=== PATIENT | female | born 1950 | race Caucasian/White ===

== ENCOUNTER 2019-12-07 11:40 | Outpatient (CLI) | payer MEDICARE, SELFPAY ==
[2019-12-08 16:00] LABS: Immunoglobulin E 45 kU/L (<OR=114)
== END 2019-12-07 11:41 | disposition home or self-care (01) ==
LOC: LAB 11:44
PROVIDERS: Family Provider Family Medicine; PCP Family Medicine; Visit Provider Internal Medicine Critical Care Medicine
DX: J45.909 Unspecified asthma, uncomplicated (principal)
CPT/HCPCS: 82785

== ENCOUNTER 2019-12-17 06:55 | Outpatient (CLI) | payer MEDICARE, SELFPAY ==
--- NOTE | 2019-12-17 07:15 | USCV_ITS ---
Geronimo Perlita Age: 69 Gender: F : 1950 Exam Date: 12/17/2019 07:15 Ordering Phys: Telma Gill MD Technologist: Colleen Aguilar [place] [facility] [place]: shortness of breath BP: / HR: 62 Rhythm: Sinus Technical Quality: Adequate MEASUREMENTS (Male / Female) Normal Values 2D ECHO LV Diastolic Diameter PLAX 5.0 cm 4.2 - 5.9 / 3.9 - 5.3 cm LV Systolic Diameter PLAX 3.8 cm IVS Diastolic Thickness 1.4 cm 0.6 - 1.0 / 0.6 - 0.9 cm IVS Systolic Thickness 1.4 cm LVPW Diastolic Thickness 1.0 cm 0.6 - 1.0 / 0.6 - 0.9 cm LVPW Systolic Thickness 1.8 cm LV Ejection Fraction 2D Teich 46.1 % LV Ejection Fraction MOD 2C 71.3 % LV Ejection Fraction 2C AL 72.9 % LA Diameter 4.9 cm LA Width 3.2 cm LA Height 5.3 cm RA Width 3.8 cm RA Height 4.9 cm M-MODE LV Diastolic Diameter MM 5.8 cm 4.2 - 5.9 / 3.9 - 5.3 cm LV Systolic Diameter MM 3.0 cm LV Ejection Fraction MM Teich 79.1 % IVS Diastolic Thickness MM 0.9 cm 0.6 - 1.0 / 0.6 - 0.9 cm IVS Systolic Thickness MM 1.9 cm LVPW Diastolic Thickness MM 1.0 cm 0.6 - 1.0 / 0.6 - 0.9 cm LVPW Systolic Thickness MM 1.9 cm Aortic Annulus Diameter 2.7 cm LA Ao Ratio MM 1.8 MV E Point Septal Separation 0.5 cm DOPPLER AV Peak Velocity 125.0 cm/s LVOT Peak Velocity 99.0 cm/s MV Peak Velocity 106.0 cm/s MV Area PHT 3.7 cm squared Mitral E to A Ratio 1.1 MV E' Velocity 8.0 cm/s Mitral E to MV E' Ratio 10.5 Mitral E to LV E' Lateral Ratio 11.5 Mitral E to LV E' Septal Ratio 9.7 TR Peak Velocity 167.0 cm/s TR Peak Gradient 11.2 mmHg Right Atrial Pressure 3.0 mmHg Pulmonary Artery Systolic Pressu 14.2 mmHg PV Peak Velocity 84.0 cm/s RV Acceleration Time 0.1 s FINDINGS Left Ventricle Normal left ventricular cavity size. Normal left ventricular systolic function. No regional wall motion abnormalities. Left ventricular ejection fraction is estimated at 60 %. Grade I/IV diastolic dysfunction (abnormal relaxation filling pattern), normal to mildly elevated filling pressures. Right Ventricle The right ventricle is normal in size and function. Right Atrium The right atrium is normal in size. Left Atrium The left atrium is normal in size. Mitral Valve Structurally normal mitral valve without significant stenosis or prolapse. There is no mitral regurgitation. Aortic Valve Structurally normal aortic valve without significant sclerosis or stenosis. There is no aortic regurgitation. Tricuspid Valve Structurally normal tricuspid valve without significant stenosis or regurgitation. Pulmonary artery systolic pressure is normal. Pulmonic Valve Structurally normal pulmonic valve without significant stenosis. There is no pulmonic regurgitation. Pericardium Normal pericardium without effusion. Aorta Normal ascending aorta dimension. CONCLUSIONS 1-Normal left ventricular cavity size. Normal left ventricular systolic function. No regional wall motion abnormalities. Left ventricular ejection fraction is estimated at 60 %. Grade I/IV diastolic dysfunction (abnormal relaxation filling pattern), normal to mildly elevated filling pressures. 2-There is no pericardial effusion. 3-No significant valve abnormalities. 4-Pulmonary artery systolic pressure is within normal limits. 6-No significant change since the prior echocardiogram study of 01/15/2017 Tere Woods MD (Electronically Signed) Final Date: 17 December 2019 17:11 S
== END 2019-12-17 06:56 | disposition home or self-care (01) ==
LOC: US 06:56
PROVIDERS: Family Provider Family Medicine; PCP Family Medicine; Visit Provider Internal Medicine Critical Care Medicine
DX: J45.909 Unspecified asthma, uncomplicated (principal); R06.02 Shortness of breath
CPT/HCPCS: 93306

== ENCOUNTER → 2019-12-23 08:31 | Outpatient (BNVA) | payer MEDICARE, SELFPAY | PROVIDERS: Family Provider Family Medicine; PCP Family Medicine; Referring Provider Licensed Practical Nurse; Visit Provider Specialist | DX: M79.601 Pain in right arm (principal); Z87.891 Personal history of nicotine dependence | CPT/HCPCS: 95908 ==

== ENCOUNTER 2019-12-24 13:43 | Outpatient (CLI) | payer MEDICARE, SELFPAY ==
--- NOTE | 2019-12-24 14:04 | PFTS_ITS ---
Date of Study:12/24/2019 Date of Dictation: MECHANICS: Forced vital capacity (FVC) is reduced. Forced expiratory volume in one second (FEV1) is reduced. FEV1/FVC is normal. FLOW VOLUME LOOP: Significant interruption during the forced expiratory maneuver.. LUNG VOLUMES: Plethysmograph was not performed due to claustrophobia DIFFUSING CAPACITY FOR CARBON MONOXIDE: Mild reduced. INTERPRETATION: The pulmonary function tests are consistent with mild restriction. Lung volumes could not be measured because of claustrophobia. Gas exchange (DLCO) is mildly reduced. MTDD
== END 2019-12-24 13:44 | disposition home or self-care (01) ==
LOC: RT 13:47
PROVIDERS: Family Provider Family Medicine; PCP Family Medicine; Visit Provider Internal Medicine Critical Care Medicine
DX: J45.909 Unspecified asthma, uncomplicated (principal); F17.210 Nicotine dependence, cigarettes, uncomplicated
CPT/HCPCS: 94060; 94729; J7611

== ENCOUNTER 2019-12-27 09:36 | Outpatient (CLI) | payer MEDICARE, SELFPAY ==
--- NOTE | 2019-12-27 09:42 | CT_ITS ---
WS: [id number] LDCT LUNG CANCER SCREENING TECHNIQUE: Noncontrast CT of the chest with coronal and sagittal reformatted images. CLINICAL INFORMATION: HX OF TOBACCO USE COMPARISON: CT chest 01/15 2017 DLP: 73.86 mGy.cm DIvol: 2.[address] scans at [facility] use at least one of these dose optimization techniques: automat ed exposure control; mA and/or kV adjustment per patient size (includes targeted exams where dose is matched to clinical indication); or iterative reconstruction. FINDINGS: No suspicious noncalcified pulmonary nodules. A few calcified granulomas. Chronic emphysematous harrison es. Calcified hilar nodes. Small esophageal hiatal hernia. OTHER FINDINGS (S MODIFIER): None. CT/CT lung screening G0297 IMPRESSION: LUNG-RADS: 1-Negative FOLLOW UP: 12 Month: Continue annual screening with LDCT
== END 2019-12-27 09:37 | disposition home or self-care (01) ==
LOC: RAD 09:38
PROVIDERS: Family Provider Family Medicine; PCP Family Medicine; Visit Provider Internal Medicine Critical Care Medicine
DX: Z12.2 Encounter for screening for malignant neoplasm of respiratory organs (principal); Z87.891 Personal history of nicotine dependence
CPT/HCPCS: G0297

== ENCOUNTER 2019-12-28 08:32 | Day surgery (SDC) | payer MEDICARE, SELFPAY ==
[2019-12-20 07:48] VITALS: BMI 45.5
[2019-12-28 08:58] VITALS: BP 121/68; PULSE 57; RESP 16; TEMP 36.7; O2SAT 94
[2019-12-28] MEDS: sodium chloride 0.9% 1,000 ML 30 ML (09:03)
[2019-12-28 09:18] LABS: Glucose Point of Care 119 mg/dL (70-110)
--- NOTE | 2019-12-28 09:26 | P.HP_ITS ---
Same Day Surgery H&P Indication for Procedure/HPI DATE OF PROCEDURE: December 30, 2019 CHIEF COMPLAINT/INDICATIONFOR SURGICAL PROCEDURE: screening PREOP DIAGNOSIS: Screening PLANNED PROCEDRUE: Operation Date: 12/28/19 10:30 Proposed Procedures p Colonoscopy 10921 K62.5(Not Applicable) - Willis Brito MD Medications/Allergies* Home Medications Medication Instructions Recorded Confirmed Type albuterol sulfate 90 mcg/actuation 2 puff INHALATION Q6H PRN 11/26/19 12/20/19 History aerosol inhaler alendronate 70 mg tablet 70 mg PO Q7D tab 11/26/19 12/20/19 History amlodipine 10 mg tablet 10 mg PO DAILY 11/26/19 12/20/19 History budesonide-formoterol HFA 160 2 puff INHALATION BID 11/26/19 12/20/19 History mcg-4.5 mcg/actuation aerosol inhaler empagliflozin 10 mg tablet 10 mg PO DAILY 11/26/19 12/20/19 History ergocalciferol (vitamin D2) 1,000 1,000 unit PO DAILY 11/26/19 12/20/19 History unit capsule eszopiclone 2 mg tablet 2 mg PO DAILY tab 11/26/19 12/20/19 History fluoxetine 40 mg capsule 40 mg PO DAILY 11/26/19 12/20/19 History levothyroxine 100 mcg capsule 100 mcg PO DAILY 11/26/19 12/20/19 History losartan 50 mg tablet 50 mg PO DAILY 11/26/19 12/20/19 History metoprolol succinate 25 mg 25 mg PO DAILY 11/26/19 12/20/19 History tablet,extended release 24 hr pantoprazole 40 mg tablet,delayed 40 mg PO DAILY 11/26/19 12/20/19 History release potassium chloride 10 mEq 10 meq PO BID 11/26/19 12/20/19 History tablet,extended release(part/cryst) pregabalin 75 mg capsule 75 mg PO TID 11/26/19 12/20/19 History repaglinide 2 mg tablet 2 mg PO TID 11/26/19 12/20/19 History rosuvastatin 20 mg tablet 20 mg PO DAILY 11/26/19 12/20/19 History ipratropium 0.5 mg-albuterol 3 mg 3 ml INHALATION Q6H PRN 12/06/19 12/20/19 History (2.5 mg base)/3 mL nebulization soln hydrochlorothiazide 25 mg PO DAILY 12/20/19 12/20/19 History tiotropium bromide [Spiriva 2 puff INHALATION BID 12/20/19 12/20/19 History Respimat] aspirin [Aspir-81] 81 mg PO DAILY 12/28/19 12/28/19 History Allergies/Adverse Reactions Allergy/AdvReac Type Severity Reaction Status Date / Time codeine Allergy Severe ALGY-Anaphy Verified 12/23/19 08:49 laxis lisinopril AdvReac Severe ADR-Cough Verified 12/23/19 08:49 Pertinent History/Comorbid Conditions* Medical History (Updated 12/28/19 @ 10:36 by Willis Brito MD) Anxiety and depression Chronic low back pain COPD (chronic obstructive pulmonary disease) CVA (cerebral vascular accident) Diabetes Fibromyalgia GERD (gastroesophageal reflux disease) History of colon polyps Hyperlipidemia Hypertension Hypothyroidism Migraines Sleep apnea Surgical History (Updated 12/28/19 @ 11:26 by Willis Brito MD) H/O colonoscopy (~12/28/19) Cecal polyp, descending colon polyps, sigmoid diverticulosis, internal hemorrhoids H/O esophagogastroduodenoscopy few yrs ago H/O exploratory laparotomy H/O: hysterectomy History of appendectomy History of back surgery x 4 History of carpal tunnel repair right History of decompression of ulnar nerve right Hx of cholecystectomy Family History (Updated 11/26/19 @ 16:45 by Magui Rodriguez LPN) Diabetes Mother Lung disease Cancer Mother brain Hypertension Denies family history of Anesthesia complication Bleeding disorder Social History Smoking and tobacco status: former smoker Second hand smoke exposure: No Smoking risk assessment/counseling performed?: No Alcohol intake: never Adopted: No Lives independently: Yes Household members: children Housing: House Marital status: / Current occupational status: disabled Pets and animals: No History of recent travel: No Yara/L[employer]-Day: [employer] Special yara needs: No Agree to transfusion: Yes Pertinent Exam Findings alert, oriented x 3 and regular rate & rhythm Recommendations Surgery/Procedure today Coding Level of Care Code Acute Refrigerated Cargo Clerk for Felicity Ruvalcaba
--- NOTE | 2019-12-28 10:56 | P.ANESASSM_ITS ---
Pre-Anesthetic Assessment Pre-Anesthetic Assessment: Height/Weight: Height 1.57 m Weight 112.945 kg Temp Pulse Resp BP Pulse Ox 98.1 F 57 L 16 121/68 94 12/28/19 08:58 12/28/19 08:58 12/28/19 08:58 12/28/19 08:58 12/28/19 08:58 Preop Diagnosis: Screening Proposed Procedure: Operation Date: 12/28/19 10:30 Proposed Procedures p Colonoscopy 35054 K62.5(Not Applicable) - Willis Brito MD Social: Social History: Tobacco (quit) and No alcohol Exam: Pre-Anes Outpt Exam: alert, oriented x 3, clear to auscultation bilaterally and regular rate & rhythm Airway: Submandibular: WNL Cervical ROM: WNL MP: 2 History/ROS: No significant history except as noted Pulmonary: Pulmonary: Asthma, COPD, COOK and Sleep apnea CV/HEM: CV/HEM: HTN : : None reported Hepatic: Hepatic: None reported GI: GI: GERD Metabolic: Metabolic: Hyperlipidemia, Morbid obesity and Thyroid Musc/skel: Musc/skel: Fibromyalgia, Lower Back Pain and OA/DJD Neuropsych: Neuropsych: Anxiety, CVA, Depression and RODRIGUEZ Anesthetic Plan: ASA status: 3 Anesthesia: Anesthesia Evaluation and MAC Risk of > 500 ml blood loss (7ml/kg in children): No PFSH Anesthesia PFSH: Medical History Anxiety and depression Chronic low back pain COPD (chronic obstructive pulmonary disease) CVA (cerebral vascular accident) Diabetes Fibromyalgia GERD (gastroesophageal reflux disease) History of colon polyps Hyperlipidemia Hypertension Hypothyroidism Migraines Sleep apnea Surgical History H/O colonoscopy (~2014) 2019 H/O esophagogastroduodenoscopy few yrs ago H/O exploratory laparotomy H/O: hysterectomy History of appendectomy History of back surgery x 4 History of carpal tunnel repair right History of decompression of ulnar nerve right Hx of cholecystectomy Family History Mother Cancer brain Diabetes Other Hypertension Lung disease Denies family history of Anesthesia complication Bleeding disorder Social History Smoking and tobacco status: former smoker Second hand smoke exposure: No Smoking risk assessment/counseling performed?: No Alcohol intake: never Adopted: No Lives independently: Yes Household members: children Housing: House Marital status: / Current occupational status: disabled Pets and animals: No History of recent travel: No Yara/Sabianism: Zoroastrian Special yara needs: No Agree to transfusion: Yes Data Anesthesia Other Labs: Laboratory Results - last 48 hr 12/28/19 09:03 POC Glucose 119 Cardiac Studies: No Data to Display
[2019-12-28 11:23] VITALS: BP 98/67; PULSE 59; RESP 16; TEMP 36.2; O2SAT 96
--- NOTE | 2019-12-28 11:28 | ANE.PACU2 ---
 Inpatient post-anesthesia follow up: Airway intact: Yes Vital signs: Temperature 98.1 F Pulse Rate 57 Respiratory Rate 16 Blood Pressure 121/68 Pulse Oximetry 94 Oxygen Delivery Me thod Room Air Oxygen Flow Rate Fraction of Inspir ed Oxygen Hydration adequate: Yes Nausea and vomiting: No Pain level: 1 Mental status: Baseline
[2019-12-28 11:36] VITALS: BP 106/65; PULSE 52; RESP 18; O2SAT 99
== END 2019-12-28 11:45 | disposition home or self-care (01) ==
PROVIDERS: Family Provider Family Medicine; PCP Family Medicine; Visit Provider Surgery
PROC: 0DJD8ZZ Inspection of Lower Intestinal Tract, Via Natural or Artificial Opening Endoscopic (ICD-10-PCS; CPT 45378; principal; 2019-12-28 10:30)
DX: Z12.11 Encounter for screening for malignant neoplasm of colon (principal); Z86.73 Personal history of transient ischemic attack (TIA), and cerebral infarction without residual deficits; E11.9 Type 2 diabetes mellitus without complications; M79.7 Fibromyalgia; K21.9 Gastro-esophageal reflux disease without esophagitis; E78.5 Hyperlipidemia, unspecified; I10 Essential (primary) hypertension; E03.9 Hypothyroidism, unspecified; G47.30 Sleep apnea, unspecified; Z82.49 Family history of ischemic heart disease and other diseases of the circulatory system; Z83.3 Family history of diabetes mellitus; Z87.891 Personal history of nicotine dependence; K57.30 Diverticulosis of large intestine without perforation or abscess without bleeding; K64.8 Other hemorrhoids; D12.4 Benign neoplasm of descending colon; D12.0 Benign neoplasm of cecum; J44.9 Chronic obstructive pulmonary disease, unspecified; M19.90 Unspecified osteoarthritis, unspecified site; F41.9 Anxiety disorder, unspecified; F32.9 Major depressive disorder, single episode, unspecified
CPT/HCPCS: 12345; 36416; 45380; 82962; 88305; J2704; J7030

== ENCOUNTER 2020-02-07 11:53 | Outpatient (RCR) | payer MEDICARE, SELFPAY | END 2020-02-10 23:59 | disposition home or self-care (01) | LOC: SOT 11:53 | PROVIDERS: Family Provider Family Medicine; PCP Family Medicine; Referring Provider Specialist; Visit Provider Specialist | DX: G56.21 Lesion of ulnar nerve, right upper limb (principal); Z98.890 Other specified postprocedural states | CPT/HCPCS: 97035; 97110; 97140; 97166 ==

== ENCOUNTER 2020-02-11 06:00 | Outpatient (RCR) | payer MEDICARE, SELFPAY | END 2020-03-12 23:59 | disposition home or self-care (01) | LOC: SOT 06:00 | PROVIDERS: Family Provider Family Medicine; PCP Family Medicine; Referring Provider Specialist; Visit Provider Specialist | DX: G56.21 Lesion of ulnar nerve, right upper limb (principal); Z98.890 Other specified postprocedural states | CPT/HCPCS: 97035; 97110; 97140; G0283 ==

== ENCOUNTER 2020-02-23 12:09 | Outpatient (CLI) | payer MEDICARE, SELFPAY ==
[2020-02-23 12:52] LABS: Basophils # 0.1 10^3/uL (0.0-0.1); Basophils % 0.7 %; Eosinophils # 0.2 10^3/uL (0.0-0.8); Eosinophils % 2.5 %; Hematocrit 49.2 % (37.0-47.0); Hemoglobin 15.1 g/dL (11.5-15.3); Lymphocytes % 33.9 %; Mean Corpuscular HGB Conc 30.7 g/dL (30.0-36.0); Mean Platelet Volume 13.5 fL (7.4-10.4); Monocytes # 0.7 10^3/uL (0.2-0.9); Monocytes % 8.3 %; Neutrophils # 4.8 10^3/uL (1.8-7.7); Neutrophils % 54.4 %; Nucleated Red Blood Cells % 0 %; Platelet Count 225 10^3/cmm (130-400); Red Blood Count 5.59 10^6/uL (4.1-5.3); Red Cell Distribution Width 16.4 % (12.1-15.1); White Blood Count 8.8 10^3/uL (4.0-10.0)
== END 2020-02-23 12:10 | disposition home or self-care (01) ==
PROVIDERS: PCP Family Medicine; Visit Provider Internal Medicine Critical Care Medicine
DX: J45.909 Unspecified asthma, uncomplicated (principal)
CPT/HCPCS: 85025

== ENCOUNTER 2020-03-17 13:19 | Outpatient (CLI) | payer MEDICARE, SELFPAY ==
--- NOTE | 2020-03-17 13:31 | MR_ITS ---
WS: [id number] MRI CERVICAL SPINE HISTORY: M79.601 Pain in right arm COMPARISON: 12/10/2017 Straightening of the normal lordosis. Visualized brainstem and cerebellum are negative. Degenerative disc disease is most significant at C3-4, C4-5, C5-6 and C6-7. No marrow edema or fracture. Signal within the cervical cord is normal. Visualized posterior fossa is unremarkable. Craniocervical junction, C1 and C2 relationship, odontoid process and soft tissues are normal. C2-C3: Normal. C3-C4: Small bilateral foraminal osteophytes, slightly greater on the LEFT. Mild LEFT foraminal steno sis. No change since the prior study. C4-C5: Diffuse osteophytic ridging and diffuse disc bulging. Mild encroachment upon the ventral theca l sac with effacement of ventral CSF. Mild to moderate bilateral stenosis with mild central stenosis. C5-C6: Diffuse osteophytic ridging and disc bulging. Mild central and bilateral foraminal stenosis. N o change. C6-C7: Mild annular disc bulging with a soft tiny central protrusion. No significant stenosis. C7-T1: Very shallow central disc protrusion. No stenosis. Paraspinal soft tissue are normal. MR/MR cervical spin wo con* [id number] IMPRESSION: 1. Similar changes within the cervical spine as compared to 12/10/2017. 2. Mild central stenosis with mild to moderate bilateral foraminal stenosis at C4-5. Disc osteophyte effacement of the ventral CSF. 3. Mild central and bilateral foraminal stenosis at C5-6 and mild LEFT foramin al stenosis at C3-4.
--- NOTE | 2020-03-17 14:45 | XR_ITS ---
WS: [id number] XR cervical spine fl/ex [id number] REASON FOR EXAM: right arm pain FINDINGS: C4-C5, C5-C6 shows settling of the discs with degenerate changes anterior spurring is seen C4. There are flexion-extension views show motion The lower cervical spine is not completely evaluated on this study. XR/XR cervical spine fl/ex [id number] IMPRESSION: Degenerated disc changes C4-5, C5-6 The lower cervical spine C6 and C7-T1 are incompletely seen There appears to be adequate motion in the cervical spine.
== END 2020-03-17 13:20 | disposition home or self-care (01) ==
LOC: RADWPI 13:20
PROVIDERS: Family Provider Family Medicine; PCP Family Medicine; Visit Provider Specialist
DX: M79.601 Pain in right arm (principal); M48.02 Spinal stenosis, cervical region; M25.78 Osteophyte, vertebrae
CPT/HCPCS: 72040; 72141

== ENCOUNTER 2020-04-24 07:14 | Outpatient (CLI) | payer MEDICARE, SELFPAY ==
[2020-04-24 07:25] VITALS: BMI 47.9
--- NOTE | 2020-04-24 08:06 | ECG_ITS ---
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 Interpretive Statements NAME OF STUDY: LEXISCAN SESTAMIBI STRESS TEST INDICATION: Exertional Shortness of Breath NOTE: Please note that this is the electrocardiogram portion of the Lexiscan/Sestamibi stress test. The perfusion scan will be documented separately. DATA: Baseline heart rate was 48 beats per minute. Baseline blood pressure was 112/68 millimeters of mercury. Target heart rate was 151. Maximum heart rate achieved was 78. which was 51 % of the predicted target heart rate. Maximum blood pressure was 125/68 millimeters of mercury. The reason for ending the test was completion of the protocol. The patient did not experience any symptoms. ELECTROCARDIOGRAM: BASELINE: Sinus bradycardia. Normal axis. Old anterior wall myocardial infarction, otherwise, no ST-T changes suggestive of ischemia noted. No arrhythmia noted. EXERCISE: After Lexiscan injection, no ST-T changes suggestive of ischemic noted. No arrhythmia noted. CONCLUSION: Please note due to baseline abnormality of the EKG specificity and sensitivity of the EKG portion of LexiScan MIBI stress test will be low 1. EKG not suggestive of ischemia 2. Lexiscan injection unremarkable. 3. Perfusion scan will be documented separately. Electronically Signed On 04-26-2020 20:10:45 CDT by Tere Woods M.D. [email or web address]
--- NOTE | 2020-04-24 08:07 | NMCV_ITS ---
NM marian perf SPECT r/s* [id number] Perlita Melton Age: 70 Gender: F : 1950 Exam Date: 04/24/2020 08:30 Ordering Phys: Telma Gill MD Technologist: MAKAYLA Isaac Exam Location: [facility] Indications: SHORTNESS OF BREATH STRESS TEST Please see separate stress test report in [facility] for full findings IMAGE PROTOCOL Rest/Stress 1 Lexiscan Day Radiopharmaceutical Dose (mCi) Administration Site Administered by Rest: Tc-99m 10.8 IV MAKAYLA Eli Sestamibi Stress:Tc-99m 32.8 IV MAKAYLA Eli Sestamibi Rest: 24-Apr-2020 60 Discovery 630 Stress: 24-Apr-2020 30 Discovery 630 0.4mg Lexiscan. Images obtained in supine and prone position. SPECT RESULTS Technical Quality: Good Raw Data Analysis: Breast attenuation Image Corrections: No attenuation or motion correction applied Summed Stress Score: 1 Summed Rest Score: 1 Summed Difference Score: 0 PERFUSION FINDINGS Very small size perfusion abnormality of mild severity of apical lateral wall on rest and stress images. This likely represents attenuation artifact. FUNCTIONAL RESULTS (calculated via Gated SPECT) Stress Image LV EF (%): 74 Stress EDV (mL):93 TID: 1.11 Stress ESV (mL):24 FUNCTIONAL FINDINGS: The left ventricle is normal in size. Transient Ischemia Dilatation of 1.1. There is normal left ventricular systolic function. The left ventricular ejection fraction is normal with a value of 74%. There is normal left ventricular wall thickening. Normal end-diastolic and end-systolic volumes. IMPRESSIONS 1. Myocardial perfusion imaging is normal. Attenuation artifact noted in apical lateral wall. 2. Overall left ventricular systolic function is normal without regional wall motion abnormalities. 3. The left ventricular ejection fraction is normal with a value of 74%. 4. Scan indicates low risk for cardiac events. 5. No prior similar studies to compare. Amanda Velez MD (Electronically Signed) Final Date: 24 April 2020 16:54 S
--- NOTE | 2020-04-24 09:11 | SUR.PREOP ---
Patient reports no pain or discomfort prior to the start of the procedure.
[2020-04-24] MEDS: regadenoson 0.4 Mg/5 ml Syringe IVP (09:20)
[2020-04-24 09:36] VITALS: BP 116/75; PULSE 72
== END 2020-04-24 07:15 | disposition home or self-care (01) ==
LOC: RAD 07:16 → CDL 07:23
PROVIDERS: PCP Family Medicine; Visit Provider Internal Medicine Critical Care Medicine
DX: R06.02 Shortness of breath (principal)
CPT/HCPCS: 78452; 93017; A9500; J2785

== ENCOUNTER → 2020-06-07 09:56 | Outpatient (BNVA) | payer MEDICARE, SELFPAY | PROVIDERS: PCP Family Medicine; Referring Provider Nurse Practitioner Family; Visit Provider Anesthesiology Pain Medicine | DX: G89.29 Other chronic pain (principal); M79.601 Pain in right arm; M54.5 Low back pain | CPT/HCPCS: 99204 ==

== ENCOUNTER → 2020-06-21 11:15 | Outpatient (BNVA) | payer MEDICARE, SELFPAY | PROVIDERS: PCP Nurse Practitioner Family; Visit Provider Anesthesiology Pain Medicine | DX: G89.29 Other chronic pain (principal); M54.5 Low back pain; M50.020 Cervical disc disorder with myelopathy, mid-cervical region, unspecified level; G56.21 Lesion of ulnar nerve, right upper limb; M79.601 Pain in right arm; Z79.891 Long term (current) use of opiate analgesic | CPT/HCPCS: 99214 ==

== ENCOUNTER → 2020-07-19 09:44 | Outpatient (BNVA) | payer MEDICARE, SELFPAY | PROVIDERS: PCP Nurse Practitioner Family; Visit Provider Anesthesiology Pain Medicine | DX: G89.29 Other chronic pain (principal); M54.5 Low back pain; M50.020 Cervical disc disorder with myelopathy, mid-cervical region, unspecified level; M79.601 Pain in right arm; G56.21 Lesion of ulnar nerve, right upper limb; Z79.891 Long term (current) use of opiate analgesic | CPT/HCPCS: 99213; 99214 ==

== ENCOUNTER → 2020-08-16 10:36 | Outpatient (BNVA) | payer MEDICARE, SELFPAY | PROVIDERS: PCP Nurse Practitioner Family; Visit Provider Anesthesiology Pain Medicine | DX: G89.29 Other chronic pain (principal); M54.41 Lumbago with sciatica, right side; M79.601 Pain in right arm; M50.020 Cervical disc disorder with myelopathy, mid-cervical region, unspecified level; G56.21 Lesion of ulnar nerve, right upper limb; Z79.891 Long term (current) use of opiate analgesic | CPT/HCPCS: 99214 ==

== ENCOUNTER → 2020-08-22 12:48 | Outpatient (BNVA) | payer MEDICARE, SELFPAY | PROVIDERS: PCP Nurse Practitioner Family; Visit Provider Anesthesiology Pain Medicine | DX: M54.2 Cervicalgia (principal); Z79.891 Long term (current) use of opiate analgesic | CPT/HCPCS: 62321; J1100 ==

== ENCOUNTER → 2020-08-29 12:20 | Outpatient (BNVA) | payer MEDICARE, SELFPAY | PROVIDERS: PCP Nurse Practitioner Family; Visit Provider Nurse Practitioner Family | DX: M25.531 Pain in right wrist (principal) | CPT/HCPCS: 73110 ==

== ENCOUNTER → 2020-08-30 17:04 | Outpatient (BNVA) | payer MEDICARE, SELFPAY | PROVIDERS: PCP Nurse Practitioner Family; Visit Provider Specialist | DX: Z11.59 Encounter for screening for other viral diseases (principal); S52.501A Unspecified fracture of the lower end of right radius, initial encounter for closed fracture; X58.XXXA Exposure to other specified factors, initial encounter | CPT/HCPCS: 87635 ==

== ENCOUNTER 2020-09-01 06:59 | Day surgery (SDC) | payer MEDICARE, SELFPAY ==
[2020-08-31 12:53] VITALS: BMI 40.2
--- NOTE | 2020-09-01 | SCC_ITS ---
Procedure Done: Open reduction internal fixation right distal radius displaced fracture utilizing the Edy extra short narrow distal radius plate 90.6 seconds of fluoroscopic guidance, for a cumulative dose of 2.8 mGy, was provided to Dr. Pendleton by the radiology department. C-arm images of the RIGHT wrist were saved for the patient's permanent record. KALEIDA HEALTHGeorgi
--- NOTE | 2020-09-01 | XR_ITS ---
WS: [id number] Exam: XR wrist RT 2V [id number] Date/Time of Exam: 09/01/2020 9:53 AM Reason For Exam: ORIF wrist Comparison 08/29/2020. There is volar plate and screw fixation involving a fracture of the distal radius. Fracture alignment is anatomic for healing. Articular relationships are been restored. XR/XR wrist RT 2V [id number] IMPRESSION: 1. Internal orthopedic fixation involving the comminuted fracture of the distal radius now stabilized in anatomic alignment for healing.
[2020-09-01 07:21] VITALS: BP 127/86; PULSE 58; RESP 20; TEMP 37; O2SAT 95
[2020-09-01 07:24] LABS: Add Urine Microscopic? NO
[2020-09-01] MEDS: sodium chloride 0.9% 1,000 ML 30 ML IV (07:44)
[2020-09-01] MEDS: CELEcoxib 200 mg Capsule 400 MG PO (07:45)
[2020-09-01 07:59] LABS: Glucose Point of Care 111 mg/dL (70-110)
[2020-09-01] MEDS: midazolam 1 mg/mL INJ 5 ML 5 MG IVP (08:01)
[2020-09-01 08:06] LABS: Basophils # 0.1 10^3/uL (0.0-0.1); Basophils % 0.6 %; Eosinophils # 0.3 10^3/uL (0.0-0.8); Eosinophils % 2.8 %; Hematocrit 48.4 % (37.0-47.0); Hemoglobin 14.8 g/dL (11.5-15.3); Lymphocytes # 3.1 10^3/uL (0.8-4.8); Lymphocytes % 26.8 %; Mean Corpuscular HGB Conc 30.6 g/dL (30.0-36.0); Mean Corpuscular Hemoglobin 26.3 pg (28.0-34.0); Mean Corpuscular Volume 86.1 fL (81-99); Monocytes % 8.8 %; Neutrophils # 7.06 10^3/uL (1.8-7.7); Neutrophils % 60.6 %; Nucleated Red Blood Cells % 0 %; Platelet Count 205 10^3/cmm (130-400); Red Blood Count 5.62 10^6/uL (4.1-5.3); Red Cell Distribution Width 17.5 % (12.1-15.1); White Blood Count 11.7 10^3/uL (4.0-10.0)
--- NOTE | 2020-09-01 08:15 | P.ANESASSM_ITS ---
Pre-Anesthetic Assessment Pre-Anesthetic Assessment: Height/Weight: Height 1.57 m Weight 99.79 kg Temp Pulse Resp BP Pulse Ox 98.6 F 58 L 20 H 127/86 95 09/01/20 07:21 09/01/20 07:21 09/01/20 07:21 09/01/20 07:21 09/01/20 07:21 Preop Diagnosis: Right wrist fracture Proposed Procedure: Operation Date: 09/01/20 08:30 Proposed Procedures p ORIF right distal radius fracture 61998 s52.501a *not tested*(Right) - Angela Pendleton MD Familial anesthetic complications: None Was Beta Argenis taken within 24 ho urs: Yes Last intake: Intake Last Liquid Date 08/31/20 Last Liquid Time 17:00 Last Solid Date 08/31/20 Last Solid Time 17:00 Social: Social History: No alcohol and No tobacco Exam: Pre-Anes Outpt Exam: alert, oriented x 3, clear to auscultation bilaterally and regular rate & rhythm Airway: Cervical ROM: WNL MP: 3 Dentition: Full Pulmonary: Pulmonary: Asthma and COPD CV/HEM: CV/HEM: HTN GI: GI: GERD Metabolic: Metabolic: DM, Morbid obesity and Thyroid Anesthetic Plan: ASA status: 3 Anesthesia: General and Regional (specify below) Risk of > 500 ml blood loss (7ml/kg in children): No Meds/Allergies Current Medications: Current Medications Generic Name Dose Route Start Last Admin Trade Name Freq PRN Reason Stop Dose Admin Sodium Chloride 1,000 mls @ 30 ml s/hr 09/01/20 07:15 09/01/20 07:44 Sodium Chloride 0.9% IV 09/02/20 07:14 30 mls/hr .Q24H ESTRELLITA Administration PFSH Anesthesia PFSH: Medical History (Updated 08/31/20 @ 14:22 by Angela Pendleton MD) Anxiety and depression Cervical disc disorder with myelopathy of mid-cervical region Chronic low back pain CVA (cerebral vascular accident) Diabetes Fibromyalgia GERD (gastroesophageal reflux disease) History of colon polyps Hyperlipidemia Hypertension Hypothyroidism Migraines Sleep apnea Surgical History H/O colonoscopy (~12/28/19) Cecal polyp, descending colon polyps, sigmoid diverticulosis, internal hemorrhoids H/O esophagogastroduodenoscopy few yrs ago H/O exploratory laparotomy H/O: hysterectomy History of appendectomy History of back surgery x 4 History of carpal tunnel repair right History of decompression of ulnar nerve Release of the ulnar nerve at the right elbow, with subcutaneous t ransposition; [place]21/2018[place] [facility] [place] Hx of cholecystectomy Family History Mother Cancer brain Diabetes Other Hypertension Lung disease Denies family history of Anesthesia complication Bleeding disorder Social History Smoking and tobacco status: former smoker Quit status (tobacco): has quit using tobacco Year quit tobacco: 2016 - 3PPD x 20 Years Alcohol intake: never Lives independently: Yes Household members: none Housing: House Marital status: / Current occupational status: disabled History of recent travel: No Current gender identity: Female Yara/Episcopalian: Congregation Data Anesthesia CBC & Chem 7: 09/01/20 07:48 09/01/20 07:48 Other Labs: Laboratory Results - last 48 hr 09/01/20 07:52 POC Glucose 111 Cardiac Studies: No Data to Display
--- NOTE | 2020-09-01 08:21 | PC.NURSE ---
0800 nerve block done per anesthesia for right arm fracture procedure. during procedure O2 on at 2L heart monitor on patient remained stable throughout procedure and tolerated procedure well.
--- NOTE | 2020-09-01 08:25 | P.HPUD_ITS ---
Surgery/Procedure H&P Update DATE OF PROCEDURE: September 01, 2020 DATE H&P PERFORMED: 08/30/20 H&P UPDATE INFORMATION: I have reviewed H&P completed within last 30 days, I have examined patient prior to procedure, No changes to prior documentation and H&P is in [facility] [place] [facility] on date indicated PREOP DIAGNOSIS: Right wrist fracture PLANNED PROCEDURE: Operation Date: 09/01/20 08:30 Proposed Procedures p ORIF right distal radius fracture 46762 s52.501a *not tested*(Right) - Angela Pendleton MD Related Problem List Diagnoses (1) Fracture of distal end of right radius: Qualifiers: Encounter type: initial encounter Fracture type: closed Fracture morphology: other intra-articular Qualified Code(s): S52.571A - Other intraarticular fracture of lower end of right radius, initial encounter for closed fracture
--- NOTE | 2020-09-01 08:27 | ANES.PROC ---
Anesthesia Procedures Procedure/Date: 09/01/20 Nerve Block ^: Nerve Block 1: Main Anesthesia: general anesthesia Time Out Performed: Yes Consent: requested by attending/covering physician, from patient, risks and benefits reviewed and patient agrees to proceed Nerve block location: axillary (R) Anesthesia monitors applied: pulse oximetry, EKG, BP cuff and oxygen Nerve block position: supine Anesthetic Used: ropivicaine 0.5% and with decadron (4 mg) Amount of anesthesia used (mL): 30 Ultrasound used to: visualize and ID brachial plexus Nerve Stimulator Used?: No Interscalene/Femoral BLK: 2 stimuplex 22 g needle used for position and inplane approach, visualize local anesthetic spread and no vascular puncture identified Injection: neg aspiration of heme Patient Tolerated Procedure: well and no complications Complications: none
[2020-09-01 09:02] LABS: Mean Platelet Volume 12.8 fL (7.4-10.4)
[2020-09-01] MEDS: ceFAZolin 1,000 mg SDV 1000 MG IRRIGATION (09:09)
[2020-09-01 09:33] LABS: Bilirubin Urine Neg (Negative); Blood Urine Neg (Negative); Glucose Urine UA 4+ (Normal); Ketones Urine Negative (Negative); Leukocyte Esterase Urine Negative (Negative); Nitrate Urine Negative (Negative); Protein Urine Neg (Negative); Urine Appearance Clear (CLEAR); Urine Color Straw (Yellow); Urobilinogen Urine Norm (Negative)
[2020-09-01 09:59] VITALS: BP 168/99; PULSE 73; RESP 12; TEMP 36.3; O2SAT 94
--- NOTE | 2020-09-01 10:04 | P.OP_ITS ---
Operative Report Date of procedure: September 01, 2020 Pre-op Diagnosis: Right comminuted, intra-articular distal radius fracture Post-op diagnosis: same Post-op Findings: Severe comminution of the distal radius with angulation and displacement Procedure Done: Open reduction internal fixation right distal radius displaced fracture utilizing the Edy extra short narrow distal radius plate Specimens removed/disposition: None Pathology: none sent Surgeon: Angela Pendleton High Pressure Firer: [facility] OR technicians Anesthesia: General Estimated blood loss (mL): 5 Tourniquet time (min): 56 Tourniquet time: At 250 mmHg IV fluids (mL): 500 Urine output (mL): 0 Urine output: No Walker Complications: None Findings: Comminuted, displaced, intra-articular angulated right distal radius fracture Condition: stable Disposition: PACU (Then home ) Brief History: This 70-year-old woman presented to my office with a right distal radius fracture. The radius fracture was significantly shortened relative to the ulna. There was significant apex volar angulation, and there was significant intra- articular comminution. Discussion was undertaken with the patient regarding appropriate treatment including closed reduction versus open reduction internal fixation. After the discussion, we both agreed the patient would benefit from open reduction internal fixation. Therefore, following the discussion, questions were answered and surgery was scheduled for the patient. Procedure: Patient was brought to the operating theater, and after undergoing adequate general anesthesia preceded by an axillary block in the preop holding area, the patient's right upper extremity was prepped and draped in usual fashion utilizing DuraPrep. The patient had a tourniquet placed high on the arm prior to prepping and draping. Following prepping and draping, the arm was exsanguinated and the tourniquet was elevated. Total tourniquet time was 56 minutes at 250 mmHg. Prior to commencement of the surgical procedure, a s urgical pause was performed. At the time of the surgical pause, we confirmed the site and side of surgery as well as the patient's identity and preoperative surgical markings. We also confirmed availability of equipment and appropriate preoperative IV antibiotics which was Ancef 2 g. Fluoroscopy was also brought into position so that we could visualize the fracture and hardware throughout the surgical procedure. The fracture was evaluated prior to tourniquet placement. Following elevation of the tourniquet as well as the surgical pause, an incision was made along the palmaris longus and continued down onto the volar surface of the radius. Care was taken to avoid injury throughout the surgical procedure to the median nerve as well as to the radial artery. The flexor carpi radialis was retracted medially. We were able to essentially elevate the sheath of the flexor carpi radialis and then I was able to place my finger directly onto the distal radius. For the most part, the patient did her own dissection at the time of her injury. Soft tissues were elevated off the distal radius to allow access to the fracture and also to the volar aspect of the distal radial shaft. Fluoroscopy was used to determine whether or not the reduction was appropriate. We were able to reduce the fracture nearly anatomically, but there was significant comminution. We then evaluated the plate and chose the extra short narrow anatomic 3 hole plate for the right distal radius. The plate was attached proximally and distally without difficulty. A combination of locking and nonlocking screws were utilized to attach the plate utilizing exclusively locking screws distally. We had excellent fixation and reduction of the fracture. Fluoroscopy was utilized during the procedure. Once the plate was fully attached, we had a near anatomic position to the distal radius and the distal radius was out to length. Being satisfied with position, the area was copiously irrigated. There were no fascial tissues to close, and therefore we closed the subcutaneous tissues with 3-0 interrupted Monocryl. We then placed a subcuticular 4-0 Monocryl suture which was running. This was followed by Exofin , Steri-Strips and fluffed fluffs. A volar splint was wrapped into position over soft roll and this was wrapped in place with an Dennis wrap. The tourniquet was released after 56 minutes. There were no complications. There were no specimens. Patient was returned to recovery room in a satisfactory condition. She was subsequently discharged home. She will follow-up with me as scheduled in her discharge instructions. Associated Problem List Diagnoses (1) Fracture of distal end of right radius: Qualifiers: Encounter type: initial encounter Fracture type: closed Fracture morphology: other intra-articular Qualified Code(s): S52.571A - Other intraarticular fracture of lower end of right radius, initial encounter for closed fracture
[2020-09-01 10:05] VITALS: BP 139/78; PULSE 60; RESP 18; O2SAT 93
[2020-09-01 10:10] VITALS: BP 140/70; PULSE 66; RESP 18; TEMP 36.3; O2SAT 93
[2020-09-01 10:15] VITALS: BP 132/74; PULSE 60; RESP 20; O2SAT 91
--- NOTE | 2020-09-01 10:23 | SUR.PHASEI ---
1005 PT HAS SENSATION/MOVEMENT IN R. FINGERS, CAP REFILL <3 SEC
[2020-09-01 10:27] VITALS: BP 171/96; PULSE 56; RESP 20
[2020-09-01] MEDS: TRAMadol 50 mg Tablet PO (10:57)
--- NOTE | 2020-09-01 18:36 | ANE.PACU2 ---
Inpatient post-anesthesia follow up: Airway intact: Yes Vital signs: Temperature 97.4 F Pulse Rate 56 Respiratory Rate 20 Blood Pressure 171/96 Pulse Oximetry 91 Oxygen Delivery Me thod Nasal Cannula Oxygen Flow Rate 2 Fraction of Inspir ed Oxygen Hydration adequate: Yes Nausea and vomiting: No Pain level: 1 Mental status: Baseline
== END 2020-09-01 11:03 | disposition home or self-care (01) ==
PROVIDERS: PCP Nurse Practitioner Family; Visit Provider Specialist
PROC: (CPT 25609; principal; 2020-09-01 08:30)
DX: S52.571A Other intraarticular fracture of lower end of right radius, initial encounter for closed fracture (principal); X58.XXXA Exposure to other specified factors, initial encounter; J44.9 Chronic obstructive pulmonary disease, unspecified; I10 Essential (primary) hypertension; K21.9 Gastro-esophageal reflux disease without esophagitis; E11.9 Type 2 diabetes mellitus without complications; E66.01 Morbid (severe) obesity due to excess calories; Z68.41 Body mass index [BMI] 40.0-44.9, adult; F41.9 Anxiety disorder, unspecified; F32.9 Major depressive disorder, single episode, unspecified; Z86.73 Personal history of transient ischemic attack (TIA), and cerebral infarction without residual deficits; E78.5 Hyperlipidemia, unspecified; E03.9 Hypothyroidism, unspecified; G47.30 Sleep apnea, unspecified; Z87.891 Personal history of nicotine dependence; Z79.82 Long term (current) use of aspirin
CPT/HCPCS: 25609; 12345; 36415; 36416; 64417; 73100; 76000; 76942; 81003; 82962; 85025; 96365; 96374; C1713; J0131; J0330; J0690; J1100; J2250; J2405; J2704; J2795; J3010; J3490; J7030

== ENCOUNTER → 2020-09-14 09:18 | Outpatient (BNVA) | payer MEDICARE, SELFPAY | PROVIDERS: PCP Nurse Practitioner Family; Visit Provider Anesthesiology Pain Medicine | DX: G89.29 Other chronic pain (principal); M54.12 Radiculopathy, cervical region; M43.12 Spondylolisthesis, cervical region; M50.020 Cervical disc disorder with myelopathy, mid-cervical region, unspecified level; M54.5 Low back pain; Z79.891 Long term (current) use of opiate analgesic | CPT/HCPCS: 99214 ==

== ENCOUNTER → 2020-09-20 09:35 | Outpatient (BNVA) | payer MEDICARE, BC, SELFPAY | PROVIDERS: PCP Nurse Practitioner Family; Visit Provider Specialist | DX: S52.571A Other intraarticular fracture of lower end of right radius, initial encounter for closed fracture (principal); X58.XXXA Exposure to other specified factors, initial encounter | CPT/HCPCS: 73110 ==

== ENCOUNTER 2020-09-20 15:40 | Outpatient (CLI) | payer MEDICARE, BC, SELFPAY | END 2020-09-20 15:41 | disposition home or self-care (01) | LOC: SPT 15:42 | PROVIDERS: PCP Nurse Practitioner Family; Visit Provider Specialist | DX: Z46.89 Encounter for fitting and adjustment of other specified devices (principal); S52.591D Other fractures of lower end of right radius, subsequent encounter for closed fracture with routine healing; X58.XXXD Exposure to other specified factors, subsequent encounter | CPT/HCPCS: 97760; L3908 ==

== ENCOUNTER → 2020-10-04 08:18 | Outpatient (BNVA) | payer MEDICARE, SELFPAY | PROVIDERS: PCP Nurse Practitioner Family; Visit Provider Specialist | DX: Z47.89 Encounter for other orthopedic aftercare (principal); S52.571D Other intraarticular fracture of lower end of right radius, subsequent encounter for closed fracture with routine healing; W19.XXXD Unspecified fall, subsequent encounter | CPT/HCPCS: 73110 ==

== ENCOUNTER → 2020-10-16 09:47 | Outpatient (BNVA) | payer BC, SELFPAY | PROVIDERS: PCP Nurse Practitioner Family; Visit Provider Anesthesiology Pain Medicine | DX: G89.29 Other chronic pain (principal); M50.020 Cervical disc disorder with myelopathy, mid-cervical region, unspecified level; G56.21 Lesion of ulnar nerve, right upper limb; M79.602 Pain in left arm; M54.5 Low back pain; Z79.891 Long term (current) use of opiate analgesic | CPT/HCPCS: 99214 ==

== ENCOUNTER → 2020-10-19 11:26 | Outpatient (BNVA) | payer MEDICARE, BC, SELFPAY | PROVIDERS: PCP Nurse Practitioner Family; Visit Provider Specialist | DX: Z47.89 Encounter for other orthopedic aftercare (principal); S52.571D Other intraarticular fracture of lower end of right radius, subsequent encounter for closed fracture with routine healing; X58.XXXD Exposure to other specified factors, subsequent encounter | CPT/HCPCS: 73110 ==

== ENCOUNTER 2020-11-01 11:01 | Outpatient (CLI) | payer MEDICARE, SELFPAY ==
[2020-11-02 16:18] LABS: Alternaria Alternata (M6) Ige <0.10 kU/L; Alternaria Class 0; Bermuda Class 0; Bermuda Grass (G2) Ige <0.10 kU/L; Cat Dander (E1) Ige <0.10 kU/L; Cat Dander Class 0; D. Farinae Class 0; Dermatophagoides Class 0; Dermatophagoides Farinae (D2) <0.10 kU/L; Dermatophagoides Pteronyssinus <0.10 kU/L; Dog Dander (E5) Ige <0.10 kU/L; Dog Dander Class 0; Elm (T8) Ige <0.10 kU/L; Elm Class 0; House Dust (Greer) (H1) Ige <0.10 kU/L; House Dust (Hollister- Stier) <0.10 kU/L; House Dust Class 0; Immunoglobulin E 32 kU/L (<OR=114); Johnson Grass (G10) Ige <0.10 kU/L; Johnson Grass Cl 0; June Grass Class 0; June Grass(Kentucky Blue) (G8) <0.10 kU/L; Maple (Box Elder) (T1) Ige <0.10 kU/L; Maple Class 0; Meadow Fescue (G4) Ige <0.10 kU/L; Meadow Fescue Class 0; Mucor Racemosus Class 0; Oak (T7) Ige <0.10 kU/L; Oak Class 0; Orchard Grass (Cocksfoot) (G3) <0.10 kU/L; Penicillium Class 0; Penicillium Notatum (M1) Ige <0.10 kU/L; Perennial Rye Grass (G5) Ige <0.10 kU/L; Perennial Rye Grass Class 0; Sweet Vernal Class 0; Sweet Vernal Grass (G1) Ige <0.10 kU/L; Timothy Grass (G6) Ige <0.10 kU/L; Timothy Grass Class 0
[2020-11-03 16:18] LABS: Common Ragweed (Short) (W1) Ig <0.10 kU/L; English Plantain (W9) Ige <0.10 kU/L; English Plantain Class 0; Lamb'S Quarters (Goose Foot) <0.10 kU/L; Lamb'S Quarters Class 0; Ragweeed Class 0; Rough Marsh Elder (W16) Ige <0.10 kU/L; Rough Marsh Elder Class 0
[2020-11-08 18:34] LABS: Aspergillus Fumigatus, Igg Ab, 5.2 mg/L (<=102)
== END 2020-11-01 11:02 | disposition home or self-care (01) ==
PROVIDERS: PCP Nurse Practitioner Family; Visit Provider Internal Medicine Critical Care Medicine
DX: R06.02 Shortness of breath (principal)
CPT/HCPCS: 36415; 82785; 86003

== ENCOUNTER 2020-11-02 09:48 | Outpatient (CLI) | payer MEDICARE, SELFPAY ==
--- NOTE | 2020-11-02 10:15 | CT_ITS ---
WS: [id number] CT CERVICAL SPINE TECHNIQUE: Noncontrast CT of the cervical spine with coronal and sagittal reformatted images. CLINICAL INFORMATION: M54.12 - Radiculopathy, cervical region COMPARISON: MRI March 17, 2020 DLP: [address] scans at [facility] use at least one of these dose optimization techniques: automat ed exposure control; mA and/or kV adjustment per patient size (includes targeted exams where dose is matched to clinical indication); or iterative reconstruction. FINDINGS: Straightening of the normal cervical lordosis. Mild spondylitic changes.Hypertrophic changes at C4-5. C2-C3: Normal. C3-C4: Mild disc osteophyte complex with endplate ridging. Mild facet arthropathy. Mild left bony for aminal narrowing. Mild facet arthropathy. Tiny central protrusion. C4-C5: Disc osteophyte complex with endplate ridging. Mild right and no left foraminal narrowing. Mil d facet arthropathy. Mild central canal stenosis. C5-C6: Disc osteophyte complex with endplate ridging. Mild central canal stenosis. Mild left and no s ignificant right foraminal narrowing. Mild facet arthropathy. C6-C7: Disc osteophyte complex with endplate ridging. Mild right and no significant left foraminal na rrowing. Spinal canal is patent. C7-T1: No significant disc bulging. Spinal canal and foramen are patent. Mild mucosal thickening right mastoid tip. CT/CT cervical spin wo con* [id number] IMPRESSION: 1. Straightening of the normal cervical lordosis with mild spondylitic changes . 2. Slight anterolisthesis C4 on C5. 3. Mild central canal stenosis C4-C5 and C5-C6 due to disc osteophyte complexe s 4. Mild bony foraminal narrowing left C3-C4, right C4-5, left C5-6 and right C 6-7.
== END 2020-11-02 09:49 | disposition home or self-care (01) ==
LOC: RADWPI 09:51
PROVIDERS: PCP Nurse Practitioner Family; Visit Provider Anesthesiology Pain Medicine
DX: M54.12 Radiculopathy, cervical region (principal); M48.02 Spinal stenosis, cervical region; M25.78 Osteophyte, vertebrae
CPT/HCPCS: 72125

== ENCOUNTER → 2020-11-06 13:41 | Outpatient (BNVA) | payer MEDICARE, SELFPAY | PROVIDERS: PCP Nurse Practitioner Family; Visit Provider Anesthesiology Pain Medicine | DX: M50.020 Cervical disc disorder with myelopathy, mid-cervical region, unspecified level (principal); M54.12 Radiculopathy, cervical region; Z79.891 Long term (current) use of opiate analgesic | CPT/HCPCS: 62321; J1100 ==

== ENCOUNTER → 2020-11-20 09:34 | Outpatient (BNVA) | payer MEDICARE, SELFPAY | PROVIDERS: PCP Nurse Practitioner Family; Visit Provider Anesthesiology Pain Medicine | DX: G89.29 Other chronic pain (principal); M54.5 Low back pain; M50.020 Cervical disc disorder with myelopathy, mid-cervical region, unspecified level; G56.21 Lesion of ulnar nerve, right upper limb; M79.601 Pain in right arm; Z79.891 Long term (current) use of opiate analgesic | CPT/HCPCS: 73110; 99214 ==

== ENCOUNTER → 2020-12-14 08:50 | Outpatient (BNVA) | payer MEDICARE, SELFPAY | PROVIDERS: PCP Nurse Practitioner Family; Visit Provider Anesthesiology Pain Medicine | DX: G89.29 Other chronic pain (principal); M54.5 Low back pain; M50.020 Cervical disc disorder with myelopathy, mid-cervical region, unspecified level; M54.12 Radiculopathy, cervical region; M79.601 Pain in right arm; G62.9 Polyneuropathy, unspecified; M79.18 Myalgia, other site; Z79.891 Long term (current) use of opiate analgesic | CPT/HCPCS: 20553; 99214; J1030; J3490 ==

== ENCOUNTER → 2020-12-18 13:41 | Outpatient (BNVA) | payer MEDICARE, SELFPAY | PROVIDERS: PCP Nurse Practitioner Family; Visit Provider Specialist | DX: R52 Pain, unspecified (principal); G56.22 Lesion of ulnar nerve, left upper limb; Z87.891 Personal history of nicotine dependence; R20.0 Anesthesia of skin; R20.2 Paresthesia of skin | CPT/HCPCS: 95885; 95908; 99202 ==

== ENCOUNTER 2021-01-12 13:29 | Outpatient (CLI) | payer MEDICARE, SELFPAY ==
--- NOTE | 2021-01-12 13:38 | MRR_ITS ---
PROCEDURE INFORMATION: Exam: MR Left Upper Extremity Joint Without and With Contrast; Elbow Exam date and time: 01/12/2021 2:01 PM Age: 70 years old Clinical indication: Patient HX: Left elbow pain, left finger/hand numbness, fall aug 2020; Additional info: M79.2 - neuralgia and neuritis, unspecified TECHNIQUE: Imaging protocol: MR of the Left upper extremity without and with contrast. Exam focused on the elbow. Contrast material: PROHANCE; Contrast volume: 19 ml; Contrast route: INTRAVENOUS (IV); COMPARISON: US SoftTissue/Extrem Lmt [id number] 04/21/2019 11:48 AM FINDINGS: The medial and lateral collateral ligaments are intact. There is mild tendinopathy and partial-thickness tearing at the common extensor tendon origin with mild associated soft tissue swelling and synovitis. The common flexor tendon is normal in appearance. The biceps and brachialis tendons are intact. There is mild tendinopathy and soft tissue swelling at the triceps tendon insertion. There is no evidence of acute fracture or dislocation. There are mild degenerative changes with associated subcortical cystic change in the distal humerus, adjacent to the ulnohumeral and ulnoradial articulations. Bone marrow signal is otherwise normal. Alignment is anatomic. There is a small to moderate elbow joint effusion with evidence of synovitis. MR/MR elbow LT wo/w con [id number] IMPRESSION: 1. Small to moderate elbow joint effusion with evidence of synovitis. 2. Lateral epicondylitis and mild insertional triceps tendinitis. 3. Additional findings, as above.
[2021-01-12] MEDS: gadobenate dimeglumine 20 mL vial IV (14:27)
== END 2021-01-12 13:30 ==
LOC: RADSHAW 13:35
PROVIDERS: PCP Nurse Practitioner Family; Visit Provider Specialist
DX: G89.29 Other chronic pain (principal); M50.020 Cervical disc disorder with myelopathy, mid-cervical region, unspecified level; G56.21 Lesion of ulnar nerve, right upper limb; M54.5 Low back pain; G62.9 Polyneuropathy, unspecified; Z79.891 Long term (current) use of opiate analgesic
CPT/HCPCS: 73223; 99214; A9577

== ENCOUNTER → 2021-02-12 08:48 | Outpatient (BNVA) | payer MEDICARE, SELFPAY | PROVIDERS: PCP Nurse Practitioner Family; Visit Provider Anesthesiology Pain Medicine | DX: G89.29 Other chronic pain (principal); M54.12 Radiculopathy, cervical region; M50.020 Cervical disc disorder with myelopathy, mid-cervical region, unspecified level; M79.18 Myalgia, other site; M79.601 Pain in right arm; G62.9 Polyneuropathy, unspecified; M54.5 Low back pain; Z79.891 Long term (current) use of opiate analgesic | CPT/HCPCS: 20553; 99214; J1030; J3490 ==

== ENCOUNTER → 2021-03-13 10:39 | Outpatient (BNVA) | payer MEDICARE, SELFPAY | PROVIDERS: PCP Nurse Practitioner Family; Visit Provider Anesthesiology Pain Medicine | DX: G89.29 Other chronic pain (principal); M79.18 Myalgia, other site; M50.020 Cervical disc disorder with myelopathy, mid-cervical region, unspecified level; M54.12 Radiculopathy, cervical region; M79.601 Pain in right arm; G62.9 Polyneuropathy, unspecified; M54.5 Low back pain; Z79.891 Long term (current) use of opiate analgesic | CPT/HCPCS: 20553; 99214; J1030; J3490 ==

== ENCOUNTER 2021-03-14 14:02 | Outpatient (CLI) | payer MEDICARE, SELFPAY ==
--- NOTE | 2021-03-14 14:16 | XR_ITS ---
WS: [id number] LEFT RIBS, MULTIPLE VIEWS WITH PA CHEST HISTORY: RIB PAIN ON LEFT SIDE COMPARISON: 03/24/2018 Lungs and mediastinum: Benign granuloma LEFT upper lobe. No pneumonia. No pneumothorax or pulmonary c ontusion. Ribs: No rib fractures or bone destruction identified. XR/XR ribs LT mn 3V w CXR1V [id number] IMPRESSION: No LEFT rib fractures identified.
== END 2021-03-14 14:03 | disposition home or self-care (01) ==
PROVIDERS: PCP Nurse Practitioner Family; Visit Provider Nurse Practitioner Family
DX: R07.81 Pleurodynia (principal)
CPT/HCPCS: 71101

== ENCOUNTER → 2021-04-12 10:50 | Outpatient (BNVA) | payer MEDICARE, SELFPAY | PROVIDERS: PCP Nurse Practitioner Family; Visit Provider Anesthesiology Pain Medicine | DX: G89.29 Other chronic pain (principal); M50.020 Cervical disc disorder with myelopathy, mid-cervical region, unspecified level; M54.12 Radiculopathy, cervical region; M79.601 Pain in right arm; M54.5 Low back pain; Z79.891 Long term (current) use of opiate analgesic | CPT/HCPCS: 99214 ==

== ENCOUNTER → 2021-05-10 09:13 | Outpatient (BNVA) | payer MEDICARE, SELFPAY | PROVIDERS: PCP Nurse Practitioner Family; Visit Provider Anesthesiology Pain Medicine | DX: G89.29 Other chronic pain (principal); M79.18 Myalgia, other site; M50.020 Cervical disc disorder with myelopathy, mid-cervical region, unspecified level; G56.21 Lesion of ulnar nerve, right upper limb; G62.9 Polyneuropathy, unspecified; M54.5 Low back pain; Z79.891 Long term (current) use of opiate analgesic | CPT/HCPCS: 20553; 99214; J1030; J3490 ==

== ENCOUNTER → 2021-06-07 10:14 | Outpatient (BNVA) | payer MEDICARE, SELFPAY | PROVIDERS: PCP Nurse Practitioner Family; Visit Provider Anesthesiology Pain Medicine | DX: G89.29 Other chronic pain (principal); M54.5 Low back pain; M50.020 Cervical disc disorder with myelopathy, mid-cervical region, unspecified level; G56.21 Lesion of ulnar nerve, right upper limb; G62.9 Polyneuropathy, unspecified; Z79.891 Long term (current) use of opiate analgesic | CPT/HCPCS: 99214 ==

== ENCOUNTER → 2021-07-05 10:41 | Outpatient (BNVA) | payer MEDICARE, SELFPAY | PROVIDERS: PCP Nurse Practitioner Family; Visit Provider Anesthesiology Pain Medicine | DX: G89.29 Other chronic pain (principal); M79.18 Myalgia, other site; M50.020 Cervical disc disorder with myelopathy, mid-cervical region, unspecified level; M54.12 Radiculopathy, cervical region; M79.601 Pain in right arm; G62.9 Polyneuropathy, unspecified; Z79.891 Long term (current) use of opiate analgesic | CPT/HCPCS: 20553; 99214; J1030; J3490 ==

== ENCOUNTER 2021-07-19 09:42 | Outpatient (CLI) | payer MEDICARE, SELFPAY ==
--- NOTE | 2021-07-19 09:45 | CT_ITS ---
WS: [id number] LDCT LUNG CANCER SCREENING TECHNIQUE: Noncontrast CT of the chest with coronal and sagittal reformatted images. CLINICAL INFORMATION: History of nicotine Dependence COMPARISON: December 27, 2019 DLP: 52.21 mGy.cm DIvol: 1.[address] scans at [facility] use at least one of these dose optimization techniques: automat ed exposure control; mA and/or kV adjustment per patient size (includes targeted exams where dose is matched to clinical indication); or iterative reconstruction. FINDINGS: No suspicious noncalcified pulmonary nodules. A few calcified granulomas. Chronic emphysematous harrison es. Calcified hilar nodes. Small esophageal hiatal hernia. Mild thoracic kyphosis. Endplate Schmorl's nodes. Cardiomegaly. Small esophageal hiatal hernia. Hepatomegaly. CT/CT lung screening [id number] IMPRESSION: LUNG-RADS: 1-Negative FOLLOW UP: 12 Month: Continue annual screening with LDCT
== END 2021-07-19 09:43 | disposition home or self-care (01) ==
PROVIDERS: PCP Nurse Practitioner Family; Visit Provider Internal Medicine Critical Care Medicine
DX: Z12.2 Encounter for screening for malignant neoplasm of respiratory organs (principal); Z87.891 Personal history of nicotine dependence; R16.0 Hepatomegaly, not elsewhere classified; K44.9 Diaphragmatic hernia without obstruction or gangrene; M40.294 Other kyphosis, thoracic region; I51.7 Cardiomegaly
CPT/HCPCS: 71271

== ENCOUNTER → 2021-08-02 10:05 | Outpatient (BNVA) | payer MEDICARE, SELFPAY | PROVIDERS: PCP Nurse Practitioner Family; Visit Provider Anesthesiology Pain Medicine | DX: G89.29 Other chronic pain (principal); Z11.52 Encounter for screening for COVID-19; M50.020 Cervical disc disorder with myelopathy, mid-cervical region, unspecified level; Z20.822 Contact with and (suspected) exposure to COVID-19; M54.12 Radiculopathy, cervical region; Z01.812 Encounter for preprocedural laboratory examination; M79.601 Pain in right arm; G62.9 Polyneuropathy, unspecified; Z79.891 Long term (current) use of opiate analgesic; Z87.891 Personal history of nicotine dependence | CPT/HCPCS: 87635; 99214 ==

== ENCOUNTER 2021-08-09 08:10 | Outpatient (CLI) | payer MEDICARE, SELFPAY ==
--- NOTE | 2021-08-09 13:03 | PFTS_ITS ---
Date of Study:08/09/21 Date of Dictation: 08/10/2021 MECHANICS: Postbronchodilator forced vital capacity (FVC) is reduced. Postbronchodilator forced expiratory volume in one second (FEV1) is severely reduced 48%. FEV1/FVC is normal. There is significant response to bronchodilators. FLOW VOLUME LOOP: Sloping of expiratory limb suggestive of airway obstruction . LUNG VOLUMES: Total lung capacity (TLC) is mildly reduced. Residual volume (RV) is normal. DIFFUSING CAPACITY FOR CARBON MONOXIDE: Severely reduced 24% . 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 Spirometry is consistent with severe restriction with significant response to bronchodilators. Lung volumes suggestive of mild restriction. There is severe gas transfer defect. Clinical correlation recommended MTDD
== END 2021-08-09 08:11 | disposition home or self-care (01) ==
PROVIDERS: PCP Nurse Practitioner Family; Visit Provider Internal Medicine Critical Care Medicine
DX: J45.909 Unspecified asthma, uncomplicated (principal)
CPT/HCPCS: 94060; 94726; 94729; J7611

== ENCOUNTER → 2021-09-27 10:45 | Outpatient (BNVA) | payer MEDICARE, SELFPAY | PROVIDERS: PCP Nurse Practitioner Family; Visit Provider Anesthesiology Pain Medicine | DX: G89.29 Other chronic pain (principal); M79.18 Myalgia, other site; M50.020 Cervical disc disorder with myelopathy, mid-cervical region, unspecified level; G56.21 Lesion of ulnar nerve, right upper limb; G62.9 Polyneuropathy, unspecified; Z79.891 Long term (current) use of opiate analgesic; Z87.891 Personal history of nicotine dependence | CPT/HCPCS: 20553; 99214 ==

== ENCOUNTER → 2021-12-20 10:31 | Outpatient (BNVA) | payer MEDICARE, SELFPAY | PROVIDERS: PCP Nurse Practitioner Family; Visit Provider Anesthesiology Pain Medicine | DX: G89.29 Other chronic pain (principal); M79.18 Myalgia, other site; M50.020 Cervical disc disorder with myelopathy, mid-cervical region, unspecified level; G56.21 Lesion of ulnar nerve, right upper limb; Z79.891 Long term (current) use of opiate analgesic; Z87.891 Personal history of nicotine dependence | CPT/HCPCS: 20553; 99214; J1030; J3490 ==

== ENCOUNTER → 2021-12-28 09:16 | Outpatient (BNVA) | payer MEDICARE, SELFPAY | PROVIDERS: PCP Nurse Practitioner Family; Visit Provider Internal Medicine Critical Care Medicine | DX: J45.909 Unspecified asthma, uncomplicated (principal); J43.9 Emphysema, unspecified; E66.01 Morbid (severe) obesity due to excess calories; J45.50 Severe persistent asthma, uncomplicated; Z87.891 Personal history of nicotine dependence; E78.5 Hyperlipidemia, unspecified; E11.8 Type 2 diabetes mellitus with unspecified complications; K21.9 Gastro-esophageal reflux disease without esophagitis; I10 Essential (primary) hypertension | CPT/HCPCS: 85025; 99214 ==

== ENCOUNTER → 2022-02-27 13:33 | Outpatient (BNVA) | payer MEDICARE, SELFPAY | PROVIDERS: PCP Nurse Practitioner Family; Visit Provider Internal Medicine Critical Care Medicine | DX: R06.02 Shortness of breath (principal); E66.01 Morbid (severe) obesity due to excess calories; J43.9 Emphysema, unspecified; J45.50 Severe persistent asthma, uncomplicated; J45.909 Unspecified asthma, uncomplicated; K21.9 Gastro-esophageal reflux disease without esophagitis; E78.5 Hyperlipidemia, unspecified; I10 Essential (primary) hypertension; E11.8 Type 2 diabetes mellitus with unspecified complications | CPT/HCPCS: 99214 ==

== ENCOUNTER → 2022-03-14 09:48 | Outpatient (BNVA) | payer MEDICARE, SELFPAY | PROVIDERS: PCP Nurse Practitioner Family; Visit Provider Anesthesiology Pain Medicine | DX: G89.29 Other chronic pain (principal); M79.18 Myalgia, other site; M50.020 Cervical disc disorder with myelopathy, mid-cervical region, unspecified level; G56.21 Lesion of ulnar nerve, right upper limb; G62.9 Polyneuropathy, unspecified; Z79.891 Long term (current) use of opiate analgesic; Z87.891 Personal history of nicotine dependence | CPT/HCPCS: 20553; 99214; J1030; J3490 ==

== ENCOUNTER 2022-05-17 13:19 | Outpatient (CLI) | payer MEDICARE, SELFPAY ==
--- NOTE | 2022-05-17 13:27 | XR_ITS ---
WS: [id number] DEXA (DUAL ENERGY X-RAY ABSORPTIOMETRY) Bone mineral density was performed using a [employer] machine. HISTORY: AGE RELATED OSTEOPOROSIS W/O CURRENT FX COMPARISON: 05/19/2019 Lumbar spine BMD (L1-L4): 1.103 g/cm2 T score: -0.6 Z score: -0.1 Total hip BMD: Left: 0.920 g/cm2. T score: -0.7 Z score: 0.0 Right: 0.895 g/cm2. T score: -0.9 Z score: -0.2 10 year probability of a major osteoporotic fracture is 37%. Compared to the prior study from 05/19/2019. Lumbar spine bone mineral density has increased by 1.3%. Bilateral hips bone mineral density has decreased by 5.9%. XR/XR DEXA axial skeleton* [id number] IMPRESSION: NORMAL BONE MINERAL DENSITY based upon the WHO classification for females. There has been a significant decrease in bone mineral density within the hips s catrachito the prior study.
== END 2022-05-17 13:20 | disposition home or self-care (01) ==
LOC: RAD 13:20
PROVIDERS: PCP Nurse Practitioner Family; Visit Provider Nurse Practitioner Family
DX: M81.0 Age-related osteoporosis without current pathological fracture (principal)
CPT/HCPCS: 77080

== ENCOUNTER → 2022-06-03 11:00 | Outpatient (BNVA) | payer MEDICARE, SELFPAY | PROVIDERS: PCP Nurse Practitioner Family; Visit Provider Internal Medicine Critical Care Medicine | DX: R06.02 Shortness of breath (principal); J45.50 Severe persistent asthma, uncomplicated; J43.9 Emphysema, unspecified; E66.01 Morbid (severe) obesity due to excess calories; Z87.891 Personal history of nicotine dependence; J82.83 Eosinophilic asthma; Z68.41 Body mass index [BMI] 40.0-44.9, adult | CPT/HCPCS: 99214 ==

== ENCOUNTER → 2022-06-12 10:02 | Outpatient (BNVA) | payer MEDICARE, SELFPAY | PROVIDERS: PCP Nurse Practitioner Family; Visit Provider Anesthesiology Pain Medicine | DX: G89.29 Other chronic pain (principal); M79.18 Myalgia, other site; M50.020 Cervical disc disorder with myelopathy, mid-cervical region, unspecified level; M54.12 Radiculopathy, cervical region; M79.601 Pain in right arm; G62.9 Polyneuropathy, unspecified; Z79.891 Long term (current) use of opiate analgesic | CPT/HCPCS: 20553; 99214 ==

== ENCOUNTER 2022-07-30 10:35 | Outpatient (CLI) | payer MEDICARE, SELFPAY ==
--- NOTE | 2022-07-30 11:06 | CT_ITS ---
WS: [id number] LDCT LUNG CANCER SCREENING TECHNIQUE: Noncontrast CT of the chest with coronal and sagittal reformatted images. CLINICAL INFORMATION: Lung cancer screening COMPARISON: CT July 19, 2021 DLP: 67.81 mGy.cm DIvol: Mean CTDIvol: 1.60 (mGy) All CT scans at [facility] use at least one of these dose optimization techniques: automat ed exposure control; mA and/or kV adjustment per patient size (includes targeted exams where dose is matched to clinical indication); or iterative reconstruction. FINDINGS: Both lungs are well aerated. A few calcified granulomas. No acute pulmonary infiltrates. Sl ight bibasilar atelectasis. Aortic calcification. No mediastinal or hilar lymphadenopathy. No axillary lymphadenopathy.Adrenal gl ands are normal. Hepatomegaly. Small esophageal hiatal hernia. CT/CT lung screening [id number] IMPRESSION: LUNG-RADS: 1-Negative FOLLOW UP: 12 Month: Continue annual screening with LDCT
== END 2022-07-30 10:36 | disposition home or self-care (01) ==
LOC: RAD 10:37
PROVIDERS: PCP Family Medicine; Visit Provider Internal Medicine Critical Care Medicine
DX: Z12.2 Encounter for screening for malignant neoplasm of respiratory organs (principal); Z87.891 Personal history of nicotine dependence
CPT/HCPCS: 71271

== ENCOUNTER → 2022-09-10 10:01 | Outpatient (BNVA) | payer MEDICARE, SELFPAY | PROVIDERS: PCP Family Medicine; Visit Provider Anesthesiology Pain Medicine | DX: G89.29 Other chronic pain (principal); M50.020 Cervical disc disorder with myelopathy, mid-cervical region, unspecified level; M54.12 Radiculopathy, cervical region; M79.601 Pain in right arm; G62.9 Polyneuropathy, unspecified; Z87.891 Personal history of nicotine dependence | CPT/HCPCS: 99214 ==

== ENCOUNTER → 2022-09-25 10:28 | Outpatient (BNVA) | payer MEDICARE, SELFPAY | PROVIDERS: PCP Family Medicine; Visit Provider Anesthesiology Pain Medicine | DX: G89.29 Other chronic pain (principal); M54.12 Radiculopathy, cervical region; M79.601 Pain in right arm; M60.89 Other myositis, multiple sites | CPT/HCPCS: 20553; 99213 ==

== ENCOUNTER → 2022-12-18 09:45 | Outpatient (BNVA) | payer MEDICARE, SELFPAY | PROVIDERS: PCP Family Medicine; Visit Provider Anesthesiology Pain Medicine | DX: G89.29 Other chronic pain (principal); M50.020 Cervical disc disorder with myelopathy, mid-cervical region, unspecified level; M54.12 Radiculopathy, cervical region; G62.9 Polyneuropathy, unspecified | CPT/HCPCS: 99213 ==

== ENCOUNTER → 2023-02-28 09:39 | Outpatient (BNVA) | payer MEDICARE, SELFPAY | PROVIDERS: PCP Family Medicine; Visit Provider Internal Medicine Pulmonary Disease | DX: J43.9 Emphysema, unspecified (principal); J45.50 Severe persistent asthma, uncomplicated; E66.01 Morbid (severe) obesity due to excess calories; J96.11 Chronic respiratory failure with hypoxia; J82.83 Eosinophilic asthma; Z87.891 Personal history of nicotine dependence; Z99.81 Dependence on supplemental oxygen; Z68.41 Body mass index [BMI] 40.0-44.9, adult | CPT/HCPCS: 99214 ==

== ENCOUNTER → 2023-03-20 08:44 | Outpatient (BNVA) | payer MEDICARE, SELFPAY | PROVIDERS: PCP Family Medicine; Visit Provider Anesthesiology Pain Medicine | DX: G89.29 Other chronic pain (principal); M50.020 Cervical disc disorder with myelopathy, mid-cervical region, unspecified level; M54.12 Radiculopathy, cervical region; G62.9 Polyneuropathy, unspecified; M79.601 Pain in right arm | CPT/HCPCS: 99214 ==

== ENCOUNTER → 2023-03-24 08:38 | Outpatient (BNVA) | payer MEDICARE, SELFPAY | PROVIDERS: PCP Family Medicine; Visit Provider Anesthesiology Pain Medicine | DX: G89.29 Other chronic pain (principal); M79.18 Myalgia, other site; M54.2 Cervicalgia; G56.21 Lesion of ulnar nerve, right upper limb | CPT/HCPCS: 20553; 99212 ==

== ENCOUNTER → 2023-06-19 08:44 | Outpatient (BNVA) | payer MEDICARE, SELFPAY | PROVIDERS: PCP Family Medicine; Visit Provider Anesthesiology Pain Medicine | DX: G89.29 Other chronic pain; M50.020 Cervical disc disorder with myelopathy, mid-cervical region, unspecified level; M54.12 Radiculopathy, cervical region; M79.601 Pain in right arm; G62.9 Polyneuropathy, unspecified | CPT/HCPCS: 99214 ==

== ENCOUNTER → 2023-06-30 13:45 | Outpatient (BNVA) | payer MEDICARE, SELFPAY | PROVIDERS: PCP Family Medicine; Visit Provider Internal Medicine Pulmonary Disease | DX: J43.9 Emphysema, unspecified (principal); E66.01 Morbid (severe) obesity due to excess calories; J96.11 Chronic respiratory failure with hypoxia; Z87.891 Personal history of nicotine dependence; Z68.41 Body mass index [BMI] 40.0-44.9, adult; Z99.89 Dependence on other enabling machines and devices; J82.83 Eosinophilic asthma | CPT/HCPCS: 99214 ==

== ENCOUNTER 2023-07-17 07:54 | Outpatient (CLI) | payer MEDICARE, SELFPAY ==
[2023-07-17 08:14] VITALS: PULSE 65; RESP 20; O2SAT 98
[2023-07-17] MEDS: albuterol 2.5 mg/3 mL Neb INHALATION (08:17)
[2023-07-17 08:18] VITALS: PULSE 64
== END 2023-07-17 07:55 | disposition home or self-care (01) ==
PROVIDERS: PCP Family Medicine; Visit Provider Internal Medicine Pulmonary Disease
DX: R06.02 Shortness of breath (principal)
CPT/HCPCS: 94060; 94618; 94729; J7613

== ENCOUNTER 2023-08-07 11:45 | Outpatient (CLI) | payer MEDICARE, SELFPAY ==
--- NOTE | 2023-08-07 12:00 | CT_ITS ---
WS: [id number] LDCT LUNG CANCER SCREENING HISTORY: Cancer Screen TECHNIQUE: Axial imaging performed from the apices to 1 cm below the costophrenic angles. Coronal and sagittal reformats are submitted with axial MIP series. All CT scans at [facility] use at least one of these dose optimization techniques: automated exposure control; mA and/or kV adjustment per patient size (includes targeted exams where dose is matched to clinical indication); or iterativ e reconstruction. DLP: 128.17 mGy.cm DIvol: Mean CTDIvol: 3.00 (mGy) COMPARISON: 07/30/2022 Diagnostic quality: Limited by breathing motion artifact. Lungs: Centrilobular emphysema. There is significant breathing motion artifact. No mass or nodule pierre ntified. Small nodules may be obscured with this amount of motion. No endobronchial lesions Heart: Mild cardiomegaly.. Other findings: Mild atherosclerosis aorta. Normal sized pulmonary artery. No adenopathy. Small hiata l hernia. No adrenal mass. L1 chronic compression fracture. IMPRESSION: CT/CT lung screening [id number] LUNG-RADS: 1-Negative FOLLOW UP: 12 Month: Continue annual screening with LDCT OTHER FINDINGS (S MODIFIER): None.
== END 2023-08-07 11:46 | disposition home or self-care (01) ==
LOC: RAD 11:45
PROVIDERS: PCP Family Medicine; Visit Provider Internal Medicine Pulmonary Disease
DX: Z12.2 Encounter for screening for malignant neoplasm of respiratory organs (principal); Z87.891 Personal history of nicotine dependence
CPT/HCPCS: 71271

== ENCOUNTER → 2023-09-18 08:39 | Outpatient (BNVA) | payer MEDICARE, SELFPAY | PROVIDERS: PCP Family Medicine; Visit Provider Anesthesiology Pain Medicine | DX: M79.18 Myalgia, other site (principal); G89.29 Other chronic pain; M50.020 Cervical disc disorder with myelopathy, mid-cervical region, unspecified level; M54.12 Radiculopathy, cervical region; M79.601 Pain in right arm | CPT/HCPCS: 20553; 99214; J1030; J3490 ==

== ENCOUNTER → 2023-10-31 08:48 | Outpatient (BNVA) | payer MEDICARE, SELFPAY | PROVIDERS: PCP Family Medicine; Visit Provider Internal Medicine Pulmonary Disease | DX: J45.50 Severe persistent asthma, uncomplicated (principal); J43.9 Emphysema, unspecified; E66.01 Morbid (severe) obesity due to excess calories; J96.11 Chronic respiratory failure with hypoxia; J82.83 Eosinophilic asthma; Z87.891 Personal history of nicotine dependence; Z99.81 Dependence on supplemental oxygen; Z68.41 Body mass index [BMI] 40.0-44.9, adult | CPT/HCPCS: 99214 ==

== ENCOUNTER → 2023-12-18 09:56 | Outpatient (BNVA) | payer MEDICARE, SELFPAY | PROVIDERS: PCP Family Medicine; Visit Provider Anesthesiology Pain Medicine | DX: G89.29 Other chronic pain; M50.020 Cervical disc disorder with myelopathy, mid-cervical region, unspecified level; M79.601 Pain in right arm; M54.12 Radiculopathy, cervical region; M48.02 Spinal stenosis, cervical region | CPT/HCPCS: 99214 ==

== ENCOUNTER → 2024-03-18 08:38 | Outpatient (BNVA) | payer MEDICARE, SELFPAY | PROVIDERS: PCP Family Medicine; Visit Provider Anesthesiology Pain Medicine | DX: G89.29 Other chronic pain; M50.020 Cervical disc disorder with myelopathy, mid-cervical region, unspecified level; G56.21 Lesion of ulnar nerve, right upper limb; M79.601 Pain in right arm; G62.9 Polyneuropathy, unspecified; M48.02 Spinal stenosis, cervical region | CPT/HCPCS: 99214 ==

== ENCOUNTER → 2024-03-29 08:54 | Outpatient (BNVA) | payer MEDICARE, SELFPAY | PROVIDERS: PCP Family Medicine; Visit Provider Anesthesiology Pain Medicine | DX: M17.0 Bilateral primary osteoarthritis of knee (principal); G89.29 Other chronic pain; M43.12 Spondylolisthesis, cervical region; M48.02 Spinal stenosis, cervical region; M54.12 Radiculopathy, cervical region | CPT/HCPCS: 20610; 99214; J1010; J3490 ==

== ENCOUNTER 2024-06-15 14:43 | Outpatient (CLI) | payer MEDICARE, SELFPAY ==
[2024-06-15 15:13] LABS: ABG PCO2 45.1 mmHg (35-45); ABG PH Result 7.41 (7.35-7.45); Arterial Blood Gas Hematocrit 43.8 % (37-47); Blood Gas Operator Identificat GD; Blood Gas Sample Site Brachial, right; Blood Gas Sample Type Arterial; Carboxyhemoglobin 1.1 %THgb (0.4-20.1); HCO3 ABG 28.3 mmol/L (22-26); HGB O2 Sat 82.5 % (95-100); Ionized Calcium Level - ABG 1.2 mmol/L (1.1-1.4); Methemoglobin 0.9 % (0.4-1.5); Oxygen Device ROOM AIR; Oxygen Saturation ABG 84.1; PO2 ABG 48.9 mmHg (80.0-100.0); Potassium Level - ABG 3.6 mmol/L (3.5-5.0); Total Hemoglobin 14.3 g/dL (12-16)
== END 2024-06-15 14:44 | disposition home or self-care (01) ==
LOC: LAB 14:47
PROVIDERS: PCP Family Medicine; Visit Provider Internal Medicine Critical Care Medicine
DX: J96.11 Chronic respiratory failure with hypoxia (principal)
CPT/HCPCS: 36600; 80051; 82330; 82805

== ENCOUNTER 2024-06-17 22:13 | Emergency (ER) | payer MEDICARE, SELFPAY ==
[2024-06-17 22:24] VITALS: BP 114/74; PULSE 80; RESP 20; TEMP 36.3; O2SAT 90; BMI 34.7
[2024-06-17 22:31] VITALS: PULSE 85; RESP 18; O2SAT 92
--- NOTE | 2024-06-17 22:33 | W.ED.EXTPRO ---
HPI - Extremity Problem General: Chief complaint: Extremity Injury, Upper Stated complaint: fall, rib pain Time Seen by Provider: 06/17/24 22:38 History of Present Illness: 74-year-old female comes in today with right rib pain after a fall at approximately 3:30 in the morning. Patient reports that her legs gave out on her while she was walking this morning. And she fell forward onto the concrete landing on her right side. Patient also reports hitting her head. Patient reports most of her pain in his her right chest wall. Patient also is having difficulty taking a deep breath. Patient has a history of COPD. Related Data Home Medications Medication Instructions Recorded Confirmed alendronate 70 mg tablet 70 mg PO Q7D 11/26/19 03/29/24 amlodipine 10 mg tablet 10 mg PO DAILY 11/26/19 03/29/24 ergocalciferol (vitamin D2) 1,000 1,000 unit PO DAILY 11/26/19 03/29/24 unit capsule levothyroxine 100 mcg capsule 100 mcg PO DAILY 11/26/19 03/29/24 losartan 50 mg tablet 50 mg PO DAILY 11/26/19 03/29/24 metoprolol succinate 25 mg 25 mg PO DAILY 11/26/19 03/29/24 tablet,extended release 24 hr pantoprazole 40 mg tablet,delayed 40 mg PO DAILY 11/26/19 03/29/24 release potassium chloride 10 mEq 10 meq PO BID 11/26/19 03/29/24 tablet,extended release(part/cryst) repaglinide 2 mg tablet 2 mg PO TID 11/26/19 03/29/24 rosuvastatin 20 mg tablet 20 mg PO DAILY 11/26/19 03/29/24 ipratropium 0.5 mg-albuterol 3 mg 3 ml inhalation Q6H PRN Shortness 12/06/19 03/29/24 (2.5 mg base)/3 mL nebulization Of Breath soln aspirin 81 mg tablet,delayed 81 mg PO DAILY 12/28/19 03/29/24 release (Aspir-) eszopiclone 2 mg tablet 1 mg PO DAILY 01/24/20 03/29/24 hydroxyzine HCl 50 mg tablet 50 mg PO QID PRN Pain 06/07/20 03/29/24 spironolactone 25 mg tablet 25 mg PO DAILY 06/07/20 03/29/24 montelukast 10 mg tablet 10 mg PO DAILY 06/28/20 03/29/24 (Singulair) tirzepatide 2.5 mg/0.5 mL mg SUBCUT .weekly 10/31/23 03/29/24 subcutaneous pen injector (Sukhunmainorro) Previous Rx's Medication Instructions Recorded COCK UP SPLINT #1 ea 09/20/20 celecoxib 200 mg capsule (Celebrex) 200 mg PO DAILY pain #30 caps 03/14/22 benralizumab 30 mg/mL subcutaneous 30 mg SUBCUT .q 8 weeks #1 mL 05/12/23 auto-injector (Fasenra Pen) benralizumab 30 mg/mL subcutaneous 30 mg SUBCUT Q28D 3 doses #1 mL 05/12/23 auto-injector (Fasenra Pen) budesonide-formoterol HFA 160 2 puff inhalation BID #10.2 grams 07/16/23 mcg-4.5 mcg/actuation aerosol inhaler (Symbicort) azithromycin 500 mg tablet 500 mg PO .every other day copd 07/29/23 #15 tabs albuterol sulfate 90 mcg/actuation 2 puff inhalation Q6H PRN 10/31/23 aerosol inhaler (ProAir HFA) Shortness Of Breath #8.5 grams tiotropium bromide 2.5 2 puff inhalation DAILY #4 grams 10/31/23 mcg/actuation mist for inhalation (Spiriva Respimat) furosemide 20 mg tablet (Lasix) 20 mg PO DAILY #30 tabs 01/07/24 amitriptyline 50 mg tablet 100 mg (2 x 50 mg) PO DAILY 03/18/24 chronic pain 30 days #60 tabs tizanidine 4 mg tablet 4 mg PO BID PRN muscle spasticity 03/18/24 #60 tabs tramadol 50 mg tablet 50 mg PO TID PRN pain (scale score 03/18/24 7-10) #90 tabs ketorolac 10 mg tablet 10 mg PO Q6H PRN pain 1 day #10 06/18/24 tabs Allergies Allergy/AdvReac Type Severity Reaction Status Date / Time codeine Allergy Severe ALGY-Anaphy Verified 03/29/24 09:06 laxis lisinopril AdvReac Severe ADR-Cough Verified 03/29/24 09:06 Review of Systems General: Reports: 10 or more systems reviewed and unremarkable except in HPI and below PFSH ED PFSH: Medical History senior living (current) use of opiate analgesic Cervical disc disorder with myelopathy of mid-cervical region Hypothyroidism Hypertension Anxiety and depression GERD (gastroesophageal reflux disease) Chronic low back pain Diabetes Hyperlipidemia Sleep apnea Fibromyalgia CVA (cerebral vascular accident) Migraines History of colon polyps Surgical History History of back surgery x 4 Hx of cholecystectomy H/O: hysterectomy History of carpal tunnel repair right History of decompression of ulnar nerve Release of the ulnar nerve at the right elbow, with subcutaneous transposition; 05/21/2018; [facility] H/O esophagogastroduodenoscopy few yrs ago H/O colonoscopy (~12/28/19) Cecal polyp, descending colon polyps, sigmoid diverticulosis, internal hemorrhoids History of appendectomy H/O exploratory laparotomy Family History Mother Cancer brain Diabetes Other Hypertension Lung disease Denies family history of Anesthesia complication Bleeding disorder Social History Smoking and tobacco/nicotine status: former use of tobacco/nicotine Quit status (tobacco/nicotine): has quit using Year quit tobacco: 2013 Former quit date comment: 3ppd X 46 years, started at age 17 Second hand smoke exposure: No Alcohol intake: never Substance/Drug Use: never Lives independently: Yes Household members: none Housing: House Marital status: / Current occupational status: disabled Do you think of yourself as: Straight/Heterosexual Current gender identity: Female Yara/Buddhist: Orthodoxy Physical Exam Const: COMMON NORMALS: patient oriented x3 and alert HENMT: COMMON NORMALS: normocephalic HEAD & SCALP: normocephalic Neck/C-Spine: COMMON NORMALS: full ROM CERVICAL SPINE: No Cervical spine tenderness Chest: CHEST: Yes tenderness rib (Right lateral) Resp: AUSCULTATION: rhonchi and diminished lung sounds Cardio: COMMON NORMALS: regular rate RATE: regular rate GI: COMMON NORMALS: Soft to palpation PALPATION: Yes Soft to palpation and Yes Tenderness to palpation present (GI) Details: RUQ : COMMON NORMALS: Yes no CVA tenderness BLADDER/KIDNEY EXAM: Yes no CVA tenderness Back/Pelvis: COMMON NORMALS: no CVA tenderness Extremity: COMMON NORMALS: full ROM NARRATIVE EXTREMITY EXAM: Abrasion left anterior lower leg Neuro: COMMON NORMALS: patient oriented x3 SENSORIUM/ORIENTATION: Yes alert Skin: NARRATIVE SKIN EXAM: Abrasion left anterior lower leg Course Vital Signs: Vital signs: Vital Signs Temperature 97.4 F L 06/17/24 22:24 Pulse Rate 62 06/18/24 00:00 Respiratory Rate 20 H 06/18/24 00:00 Blood Pressure 102/66 06/18/24 00:00 Pulse Oximetry 92 06/18/24 00:00 Oxygen Delivery Me thod Nasal Cannula 06/18/24 00:00 Oxygen Flow Rate 5 06/18/24 00:00 MDM - Extremity (Nontraumatic) Medical Decision Making 74-year-old female comes in today with complaints of pain to the right chest wall. On exam patient appears mild to moderate pain. Patient has difficulty taking a deep breath due to the pain. Patient does have COPD and routinely wears oxygen at 3 L per nasal cannula. Patient is having to have oxygen at 5 L per nasal cannula in order to maintain saturation above 90 at this time. Patient has lateral anterior right chest wall pain. Abdomen has some right upper quadrant tenderness. Vital signs are normal except for some hypoxia of 8889 on patient's normal 3 L per nasal cannula. Differential diagnosis rib fracture, pulmonary contusion, pneumothorax, pneumonia, ACS. CT of the chest, cervical spine, head, abdomen pelvis noted no acute injury. CBC and CMP were unremarkable. Troponin was in normal range. Patient does have a history of chronic respiratory failure with hypoxia. Patient was written for some ketorolac for further pain relief. Patient should continue with routine medications otherwise as prescribed. Patient was recommended to follow-up further with primary care. Lab Data 06/17/24 23:10 06/17/24 23:10 Radiology Impressions Cervical Spine CT 06/17/24 22:40 IMPRESSION: No acute posttraumatic changes in the cervical spine. Chest/Abdomen/Pelvis CT 06/17/24 22:40 IMPRESSION: No acute posttraumatic changes in the chest. IMPRESSION: No acute intra-abdominal process. Head CT 06/17/24 22:40 IMPRESSION: No intracranial posttraumatic changes. Laboratory Results WBC 7.85 10^3/uL (3.29-11.43) 06/17/24 23:10 RBC 4.55 10^6/uL (3.85-5.65) 06/17/24 23:10 Hgb 12.20 g/dL (11.27-16.99) 06/17/24 23:10 Hct 39.4 % (36-47) 06/17/24 23:10 MCV 86.6 fl (85-98) 06/17/24 23:10 MCH 26.8 pg (27-33) L 06/17/24 23:10 MCHC 31.0 g/dL (30-55) 06/17/24 23:10 RDW 16.2 % (12.1-15.1) H 06/17/24 23:10 Plt Count 218 10^3/cmm (157-399) 06/17/24 23:10 MPV 12.2 fL (7.4-10.4) H 06/17/24 23:10 Neut % (Auto) 64.2 % 06/17/24 23:10 Lymph % (Auto) 25.5 % 06/17/24 23:10 [place] % (Auto) 9.9 % 06/17/24 23:10 Eos % (Auto) 0.0 % 06/17/24 23:10 Baso % (Auto) 0.1 % 06/17/24 23:10 Neut # (Auto) 5.04 10^3/uL (1.8-7.7) 06/17/24 23:10 Lymph # (Auto) 2.0 10^3/uL (0.8-4.8) 06/17/24 23:10 [place] # (Auto) 0.8 10^3/uL (0.2-0.9) 06/17/24 23:10 Eos # (Auto) 0.0 10^3/uL (0.0-0.8) 06/17/24 23:10 Baso # (Auto) 0.0 10^3/uL (0.0-0.1) 06/17/24 23:10 Nucleated RBC % (auto) 0 % 06/17/24 23:10 Nucleated RBCs # 0.0 /100WBC 06/17/24 23:10 Sodium 141 mmol/L (136-145) 06/17/24 23:10 Potassium 3.9 mmol/L (3.5-5.1) 06/17/24 23:10 Chloride 106 mmol/L (98-107) 06/17/24 23:10 Carbon Dioxide 25 mmol/L (22-29) 06/17/24 23:10 Anion Gap 13.9 (5-19) 06/17/24 23:10 BUN 11 mg/dL (8-23) 06/17/24 23:10 Creatinine 0.9 mg/dL (0.5-0.9) 06/17/24 23:10 GFR Calculation Not Reportable 06/17/24 23:10 Glucose 115 mg/dL (65-115) 06/17/24 23:10 Calculated Osmolality 292 mOsm/kg (285-295) 06/17/24 23:10 Calcium 8.2 mg/dL (8.5-10.5) L 06/17/24 23:10 Total Bilirubin 0.3 mg/dL (0.15-1.2) 06/17/24 23:10 AST 14 U/L (0-32) 06/17/24 23:10 ALT 9 U/L (0-33) 06/17/24 23:10 Alkaline Phosphatase 88 U/L (35-105) 06/17/24 23:10 Troponin T Baseline 10 ng/L (0-10) 06/17/24 23:10 Total Protein 5.6 g/dL (6.6-8.7) L 06/17/24 23:10 Albumin 3.8 g/dL (3.5-5.2) 06/17/24 23:10 Globulin 1.8 g/dL (1.3-4.6) 06/17/24 23:10 Urine Color Yellow (Yellow) 06/17/24 23:25 Urine Appearance Clear (CLEAR) 06/17/24 23:25 Urine pH 5.0 (5-7) 06/17/24 23:25 Ur Specific [place] 1.025 (1.005-1.030) 06/17/24 23:25 Urine Protein Negative (Negative) 06/17/24 23:25 Urine Glucose (UA) Negative (Normal) 06/17/24 23:25 Urine Ketones Negative (Negative) 06/17/24 23:25 Urine Blood Negative (Negative) 06/17/24 23:25 Urine Nitrate Negative (Negative) 06/17/24 23:25 Urine Bilirubin Negative (Negative) 06/17/24 23:25 Urine Urobilinogen 1.0 mg/dL (Negative) 06/17/24 23:25 Ur Leukocyte Esterase Negative (Negative) 06/17/24 23:25 Amorphous Sediment Not Reportable 06/17/24 23:25 All radiology interpretation(s) finalized by discharge EKG Data EKG 1: I personally reviewed and interpreted this EKG as follows: EKG interpretation date: 06/17/24 EKG interpretation time: 22:55 Prior EKG tracings: not available for review Interpretation: EKG shows a sinus rhythm with a regular rate at [address] elevation or ectopy is noted on the pattern. Computer generated interpretation: Sinus rhythm. Low QRS voltage in precordial leads. Pattern consistent with pulmonary disease. Possible right ventricular conduction delay. Compared to ECG 05/21/2018 at 750 low QRS voltage now present. Discharge Plan Discharge Patient Disposition: Home Clinical Impression: Chronic respiratory failure with hypoxia Fall from slip, trip, or stumble Qualifiers: Encounter type: initial encounter Qualified Code(s): W01.0XXA - Fall on same level from slipping, tripping and stumbling without subsequent striking against object, initial encounter Contusion of rib on right side Qualifiers: Encounter type: initial encounter Qualified Code(s): S20.211A - Contusion of right front wall of thorax, initial encounter Condition: Stable Prescriptions: New ketorolac 10 mg tablet 10 mg PO Q6H PRN (Reason: pain) 1 Days Qty: 10 0RF No Action ipratropium-albuterol 0.5 mg-3 mg(2.5 mg base)/3 mL solution for nebulization 3 ml INHALATION Q6H PRN (Reason: Shortness Of Breath) metoprolol succinate 25 mg tablet extended release 24 hr 25 mg PO DAILY pantoprazole 40 mg tablet,delayed release (DR/EC) 40 mg PO DAILY repaglinide 2 mg tablet 2 mg PO TID levothyroxine 100 mcg capsule 100 mcg PO DAILY potassium chloride 10 mEq tablet,ER particles/crystals 10 meq PO BID alendronate 70 mg tablet 70 mg PO Q7D rosuvastatin 20 mg tablet 20 mg PO DAILY ergocalciferol (vitamin D2) 1,000 unit capsule 1,000 unit PO DAILY amlodipine 10 mg tablet 10 mg PO DAILY losartan 50 mg tablet 50 mg PO DAILY eszopiclone 2 mg tablet 1 mg PO DAILY spironolactone 25 mg tablet 25 mg PO DAILY hydroxyzine HCl 50 mg tablet 50 mg PO QID PRN (Reason: Pain) (DME) COCK UP SPLINT See Rx Instructions .Route .MEDSUPPLY Qty: 1 0RF Rx Instructions: As directed methylprednisolone acetate [Depo-Medrol] 80 mg/mL suspension 80 mg intra-articular ONCE Qty: 1 0RF methylprednisolone acetate [Depo-Medrol] 40 mg/mL suspension 40 mg intra-articular ONCE Qty: 1 0RF bupivacaine (PF) 0.25 % (2.5 mg/mL) solution 1 ml intra-articular ONCE Qty: 1 0RF Celebrex 200 mg capsule 200 mg PO DAILY Qty: 30 2RF montelukast [Singulair] 10 mg tablet 10 mg PO DAILY methylprednisolone acetate [Depo-Medrol] 40 mg/mL suspension 40 mg Infiltration ONCE Qty: 1 0RF bupivacaine (PF) 0.25 % (2.5 mg/mL) solution 10 ml Infiltration ONCE Qty: 1 0RF methylprednisolone acetate [Depo-Medrol] 80 mg/mL suspension 80 mg intra-articular ONCE Qty: 1 0RF triamcinolone acetonide [Kenalog] 40 mg/mL suspension 40 mg IM ONCE Qty: 1 0RF methylprednisolone acetate [Depo-Medrol] 40 mg/mL suspension 40 mg intra-articular ONCE Qty: 1 0RF bupivacaine (PF) 0.25 % (2.5 mg/mL) solution 1 ml intra-articular ONCE Qty: 1 0RF Mounjaro 2.5 mg/0.5 mL pen injector SUBCUT .weekly albuterol sulfate [ProAir HFA] 90 mcg/actuation HFA aerosol inhaler 2 puff INHALATION Q6H PRN (Reason: Shortness Of Breath) Qty: 8.5 6RF Spiriva Respimat 2.5 mcg/actuation mist 2 puff INHALATION DAILY Qty: 4 6RF methylprednisolone acetate [Depo-Medrol] 40 mg/mL suspension 40 mg intra-articular ONCE Qty: 1 0RF bupivacaine (PF) 0.25 % (2.5 mg/mL) solution 9 ml intra-articular ONCE Qty: 1 0RF tramadol 50 mg tablet 50 mg PO TID PRN (Reason: pain (scale score 7-10)) Qty: 90 2RF amitriptyline 50 mg tablet 100 mg PO DAILY MDD 1 30 Days Qty: 60 2RF tizanidine 4 mg tablet 4 mg PO BID PRN (Reason: muscle spasticity) Qty: 60 2RF Fasenra Pen 30 mg/mL auto-injector 30 mg SUBCUT Q28D Qty: 1 2RF Fasenra Pen 30 mg/mL auto-injector 30 mg SUBCUT .q 8 weeks Qty: 1 5RF budesonide-formoterol [Symbicort] 160-4.5 mcg/actuation HFA aerosol inhaler 2 puff INHALATION BID Qty: 10.2 6RF azithromycin 500 mg tablet 500 mg PO .every other day Qty: 15 6RF furosemide [Lasix] 20 mg tablet 20 mg PO DAILY Qty: 30 3RF aspirin [Aspir-81] 81 mg Tablet,Delayed Release (Dr/Ec) 81 mg PO DAILY Discharge Orders: Discharge ED (Routine); Ordered 06/18/24 Ordered By: Fernando Person Referrals: Dmitriy Martinez MD [Primary Care Provider] - Discharge Diet: Usual diet Discharge Activity: Increase activity as tolerated Patient Instructions: Opioid Safety, Pain Management Activity Restrictions/Additional Instructions: Continue with routine medications as ordered. Use ketorolac for further pain relief. Use ice or heat for further pain relief. Follow-up with primary care for further instructions. Return to ED for new concerns. Coding Level of Care Code ED Secondary Market Manager for Felicity Ruvalcaba
--- NOTE | 2024-06-17 22:40 | CTR_ITS ---
PROCEDURE INFORMATION: Exam: CT Chest Without Contrast; Diagnostic Exam date and time: 06/17/2024 11:36 PM Age: 74 years old Clinical indication: Injury or trauma; Fall; Blunt; Abdominal wall; Prior surgery; Surgery date: 6+ months; Surgery type: Hysterectomy, appy, 4 back SX, choley; Additional info: Fall, hypoxia, chest wall pain TECHNIQUE: Imaging protocol: Diagnostic computed tomography of the chest without contrast. Radiation optimization: All CT scans at this facility use at least one of these dose optimization techniques: automated exposure control; mA and/or kV adjustment per patient size (includes targeted exams where dose is matched to clinical indication); or iterative reconstruction. COMPARISON: CT lung screening [id number] 08/07/2023 11:54 AM RADIATION DOSE METRICS: Total DLP (mGy-cm): 1513.7 FINDINGS: Lungs: Calcified granuloma in the left upper lobe. Bilateral lower lobe atelectasis. Pleural spaces: Trace bilateral pleural effusions. Heart: Minimal pericardial effusion. Mild cardiomegaly. Lymph nodes: Calcified left hilar lymph nodes. Vasculature: Vascular calcifications. Bones/joints: Mild curvature of the thoracic spine convex to the left. Chronic severe compression deformity of the L1 and L2 vertebral bodies, unchanged. Soft tissues: Unremarkable. PROCEDURE INFORMATION: Exam: CT Abdomen And Pelvis Without Contrast Exam date and time: 06/17/2024 11:36 PM Age: 74 years old Clinical indication: Injury or trauma; Fall; Blunt; Abdominal wall; Prior surgery; Surgery date: 6+ months; Surgery type: Hysterectomy, appy, 4 back SX, choley; Additional info: Fall, hypoxia, chest wall pain TECHNIQUE: Imaging protocol: Computed tomography of the abdomen and pelvis without contrast. Radiation optimization: All CT scans at this facility use at least one of these dose optimization techniques: automated exposure control; mA and/or kV adjustment per patient size (includes targeted exams where dose is matched to clinical indication); or iterative reconstruction. COMPARISON: CT lung screening [id number] 08/07/2023 11:54 AM RADIATION DOSE METRICS: Total DLP (mGy-cm): 1198.6 FINDINGS: Liver: Normal. No mass. Gallbladder and biliary ducts: Post cholecystectomy. Pancreas: Normal. No ductal dilation. Spleen: Normal. No splenomegaly. Adrenal glands: Normal. No mass. Kidneys and ureters: Normal. No hydronephrosis. Stomach and bowel: Diverticulosis of the sigmoid colon. Appendix: No evidence of appendicitis. Intraperitoneal space: Unremarkable. No free air. No significant fluid collection. Vasculature: Unremarkable. No abdominal aortic aneurysm. Lymph nodes: Unremarkable. No enlarged lymph nodes. Urinary bladder: Unremarkable as visualized. Reproductive: Post hysterectomy. Bones/joints: Bilateral L5-S1 facet joint arthropathy with mild anterolisthesis of L5 over S1. Mild degenerative disease of bilateral hip joints. Soft tissues: Unremarkable. CT/CT chest abdpel [id number] IMPRESSION: No acute posttraumatic changes in the chest. IMPRESSION: No acute intra-abdominal process.
--- NOTE | 2024-06-17 22:40 | CTR_ITS ---
PROCEDURE INFORMATION: Exam: CT Cervical Spine Without Contrast Exam date and time: 06/17/2024 11:03 PM Age: 74 years old Clinical indication: Injury or trauma; Fall; Blunt trauma TECHNIQUE: Imaging protocol: Computed tomography of the cervical spine without contrast. Radiation optimization: All CT scans at this facility use at least one of these dose optimization techniques: automated exposure control; mA and/or kV adjustment per patient size (includes targeted exams where dose is matched to clinical indication); or iterative reconstruction. COMPARISON: CT cervical spin wo con* [id number] 11/02/2020 10:01 AM RADIATION DOSE METRICS: Total DLP (mGy-cm): 1513.7 FINDINGS: Bones: Moderate degenerative disease at the anterior C1-C2 articulation. No spondylolisthesis. No compression deformity of the vertebral bodies. Narrowing of the C4-C5 and C5-C6 disc spaces with posterior osteophyte disc complex causing mild bony canal stenosis. Paranasal sinuses: Mucosal disease of the left sphenoid sinus. Lungs: Bilateral upper lobe atelectatic changes. Lymph nodes: Calcified left hilar lymph nodes. Vasculature: Right carotid artery calcifications. Soft tissues: Unremarkable. CT/CT cervical spin wo con* [id number] IMPRESSION: No acute posttraumatic changes in the cervical spine.
--- NOTE | 2024-06-17 22:40 | CTR_ITS ---
PROCEDURE INFORMATION: Exam: CT Head Without Contrast Exam date and time: 06/17/2024 11:03 PM Age: 74 years old Clinical indication: Injury or trauma; Fall; Blunt trauma (contusions or hematomas); Without loss of consciousness; Weakness, extremity; Bilateral TECHNIQUE: Imaging protocol: Computed tomography of the head without contrast. Radiation optimization: All CT scans at this facility use at least one of these dose optimization techniques: automated exposure control; mA and/or kV adjustment per patient size (includes targeted exams where dose is matched to clinical indication); or iterative reconstruction. COMPARISON: CT cervical spin wo con* [id number] 06/17/2024 11:03 PM RADIATION DOSE METRICS: Total DLP (mGy-cm): 1198.6 FINDINGS: Brain: Bilateral periventricular white matter and centrum semiovale hypodensities, consistent with chronic ischemic small vessel disease. No recent infarct, intracranial bleed or mass effect partially empty sella. Cerebral ventricles: No ventriculomegaly. Paranasal sinuses: Mucosal disease of the left sphenoid sinus. Mastoid air cells: Visualized mastoid air cells are well aerated. Orbital cavities: Calcification of the right posterior sclera. Bones: Mild degenerative at the anterior C1-C2 articulation. Soft tissues: Unremarkable. CT/CT head wo con* [id number] IMPRESSION: No intracranial posttraumatic changes.
--- NOTE | 2024-06-17 22:43 | ECG_ITS ---
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 Measurements Intervals [place] Rate: 61 P: 40 IN: 169 QRS: 6 QRSD: 84 T: 2 QT: 393 QTc: 397 Interpretive Statements SINUS RHYTHM LOW QRS VOLTAGE IN PRECORDIAL LEADS [QRS DEFLECTION < 1.0 mV IN CHEST LEADS] PATTERN CONSISTENT WITH PULMONARY DISEASE POSSIBLE RIGHT VENTRICULAR CONDUCTION DELAY [RSR (QR) IN V1/V2] Compared to ECG 05/21/2018 07:50:32 Low QRS voltage now present Electronically Signed On 06-18-2024 16:59:15 CDT by Destinee Arnold M.D. [id number]
[2024-06-17 22:59] VITALS: RESP 18; O2SAT 91
[2024-06-17] MEDS: fentaNYL 50 mcg/mL INJ 2mL IVP (22:59)
[2024-06-17] MEDS: ipratropium-albuterol 3 mL Neb INHALATION (23:10)
[2024-06-17 23:11] VITALS: PULSE 62; RESP 18; O2SAT 89
[2024-06-17 23:14] LABS: Basophils % 0.1 %; Hematocrit 39.4 % (36-47); Lymphocytes % 25.5 %; Mean Corpuscular Hemoglobin 26.8 pg (27-33); Mean Corpuscular Volume 86.6 fl (85-98); Mean Platelet Volume 12.2 fL (7.4-10.4); Monocytes # 0.8 10^3/uL (0.2-0.9); Monocytes % 9.9 %; Neutrophils # 5.04 10^3/uL (1.8-7.7); Neutrophils % 64.2 %; Nucleated Red Blood Cells % 0 %; Platelet Count 218 10^3/cmm (157-399); Red Blood Count 4.55 10^6/uL (3.85-5.65); Red Cell Distribution Width 16.2 % (12.1-15.1); White Blood Count 7.85 10^3/uL (3.29-11.43)
[2024-06-17 23:18] VITALS: BP 103/88; PULSE 61; RESP 22; O2SAT 88
[2024-06-17 23:31] LABS: Charge for UA Resulting for Rev
[2024-06-17 23:32] LABS: Troponin(5th) Baseline 10 ng/L (0-10)
[2024-06-17 23:33] LABS: Alanine Aminotransferase 9 U/L (0-33); Albumin Level 3.8 g/dL (3.5-5.2); Alkaline Phosphatase 88 U/L (35-105); Anion Gap 13.9 (5-19); Aspartate Amino Transferase 14 U/L (0-32); Blood Urea Nitrogen 11 mg/dL (8-23); Calcium 8.2 mg/dL (8.5-10.5); Carbon Dioxide 25 mmol/L (22-29); Chloride 106 mmol/L (98-107); Creatinine Clr Calc Pharmacy 56.7155; Globulin 1.8 g/dL (1.3-4.6); Glucose 115 mg/dL (65-115); Osmolality Calculated 292 mOsm/kg (285-295); Potassium 3.9 mmol/L (3.5-5.1); Sodium 141 mmol/L (136-145); Total Bilirubin 0.3 mg/dL (0.15-1.2); Total Protein 5.6 g/dL (6.6-8.7)
[2024-06-17 23:39] LABS: Bilirubin Urine Negative (Negative); Blood Urine Negative (Negative); Glucose Urine UA Negative (Normal); Ketones Urine Negative (Negative); Leukocyte Esterase Urine Negative (Negative); Nitrate Urine Negative (Negative); Protein Urine Negative (Negative); Specific Gravity, Urine 1.025 (1.005-1.030); Urine Appearance Clear (CLEAR); Urine Color Yellow (Yellow)
[2024-06-18] VITALS: BP 102/66; PULSE 62; RESP 20; O2SAT 92
[2024-06-18] MEDS: HYDROcodone-acetaminophen 7.5-325 mg Tablet 1 TAB PO (00:09)
[2024-06-18] MEDS: sodium chloride 0.9% 1,000 ML 999 ML IV (00:09)
[2024-06-18 00:37] VITALS: BP 106/66; PULSE 66; RESP 20; O2SAT 93
== END 2024-06-18 00:47 | disposition home or self-care (01) ==
PROVIDERS: Emergency Provider Nurse Practitioner Family; PCP Family Medicine
DX: S20.211A Contusion of right front wall of thorax, initial encounter (principal); J96.11 Chronic respiratory failure with hypoxia; Z79.85 Long-term (current) use of injectable non-insulin antidiabetic drugs; Z79.82 Long term (current) use of aspirin; Z79.84 Long term (current) use of oral hypoglycemic drugs; S80.812A Abrasion, left lower leg, initial encounter; Z87.891 Personal history of nicotine dependence; I10 Essential (primary) hypertension; E11.9 Type 2 diabetes mellitus without complications; E78.5 Hyperlipidemia, unspecified; Z86.73 Personal history of transient ischemic attack (TIA), and cerebral infarction without residual deficits; J44.9 Chronic obstructive pulmonary disease, unspecified; W18.39XA Other fall on same level, initial encounter
CPT/HCPCS: 70450; 71250; 72125; 74176; 80053; 81003; 81015; 84484; 85025; 93005; 94640; 96374; 99285; J3010; J7030

== ENCOUNTER 2024-06-19 18:49 | Inpatient (IN) | payer MEDICARE, SELFPAY ==
[2024-06-19] VITALS (32 sets, daily range): BP systolic 78–120; BP diastolic 37–75; PULSE 21–87; RESP 14–29; TEMP 36.8–37.1; O2SAT 67–97; BMI 37.8
--- NOTE | 2024-06-19 19:04 | XRR_ITS ---
PROCEDURE INFORMATION: Exam: XR Chest Exam date and time: 06/19/2024 7:20 PM Age: 74 years old Clinical indication: Shortness of breath; Patient HX: Low o2 sat; Hypotension TECHNIQUE: Imaging protocol: Radiologic exam of the chest. Views: 1 view. COMPARISON: CT chest abdpel [id number] 06/17/2024 11:36 PM FINDINGS: Lungs: Hazy opacities of the left lower lung concerning for pneumonia. Mild left basilar atelectasis. Pleural spaces: Unremarkable. No pleural effusion. No pneumothorax. Heart/Mediastinum: Cardiomegaly. Bones/joints: Unremarkable. XR/XR chest 1V portable [id number] IMPRESSION: Hazy opacities of the left lower lung concerning for pneumonia. Mild left basilar atelectasis.
--- NOTE | 2024-06-19 19:11 | ED_ITS ---
HPI - SOB/Dyspnea 2 General: Chief Complaint: Shortness of Breath/Dyspnea Stated Complaint: Lower O2, Low BP Time Seen by Provider: 06/19/24 18:57 History of Present Illness: HPI Narrative: 74-year-old female presenting with signi ficant shortness of breath, her O2 sat was low at home by pulse ox as well. She fell a couple of nights ago, striking her right chest wall. She was seen and evaluated here. CT scans were negative at that time. Since that time, she has progressively gotten more short of breath. She is on 3 L at home, and states that he could not get her saturations above 85 or 86 via 3.5 L. Saturations were 67% on room air here in triage. On 6 L by nasal cannula, saturations were 86%. says that her blood pressure is also low at home, in the 80s systolic. She has been sluggish, and got dizzy while standing up at home today. Related Data Home Medications Medication Instructions Recorded Confirmed alendronate 70 mg tablet 70 mg PO Q7D 11/26/19 03/29/24 amlodipine 10 mg tablet 10 mg PO DAILY 11/26/19 03/29/24 ergocalciferol (vitamin D2) 1,000 1,000 unit PO DAILY 11/26/19 03/29/24 unit capsule levothyroxine 100 mcg capsule 100 mcg PO DAILY 11/26/19 03/29/24 losartan 50 mg tablet 50 mg PO DAILY 11/26/19 03/29/24 metoprolol succinate 25 mg 25 mg PO DAILY 11/26/19 03/29/24 tablet,extended release 24 hr pantoprazole 40 mg tablet,delayed 40 mg PO DAILY 11/26/19 03/29/24 release potassium chloride 10 mEq 10 meq PO BID 11/26/19 03/29/24 tablet,extended release(part/cryst) repaglinide 2 mg tablet 2 mg PO TID 11/26/19 03/29/24 rosuvastatin 20 mg tablet 20 mg PO DAILY 11/26/19 03/29/24 ipratropium 0.5 mg-albuterol 3 mg 3 ml inhalation Q6H PRN Shortness 12/06/19 03/29/24 (2.5 mg base)/3 mL nebulization Of Breath soln aspirin 81 mg tablet,delayed 81 mg PO DAILY 12/28/19 03/29/24 release (Aspir-) eszopiclone 2 mg tablet 1 mg PO DAILY 01/24/20 03/29/24 hydroxyzine HCl 50 mg tablet 50 mg PO QID PRN Pain 06/07/20 03/29/24 spironolactone 25 mg tablet 25 mg PO DAILY 06/07/20 03/29/24 montelukast 10 mg tablet 10 mg PO DAILY 06/28/20 03/29/24 (Singulair) tirzepatide 2.5 mg/0.5 mL mg SUBCUT .weekly 10/31/23 03/29/24 subcutaneous pen injector (Shannaro) Previous Rx's Medication Instructions Recorded COCK UP SPLINT #1 ea 09/20/20 celecoxib 200 mg capsule (Celebrex) 200 mg PO DAILY pain #30 caps 03/14/22 benralizumab 30 mg/mL subcutaneous 30 mg SUBCUT .q 8 weeks #1 mL 05/12/23 auto-injector (Fasenra Pen) benralizumab 30 mg/mL subcutaneous 30 mg SUBCUT Q28D 3 doses #1 mL 05/12/23 auto-injector (Fasenra Pen) budesonide-formoterol HFA 160 2 puff inhalation BID #10.2 grams 07/16/23 mcg-4.5 mcg/actuation aerosol inhaler (Symbicort) azithromycin 500 mg tablet 500 mg PO .every other day copd 07/29/23 #15 tabs albuterol sulfate 90 mcg/actuation 2 puff inhalation Q6H PRN 10/31/23 aerosol inhaler (ProAir HFA) Shortness Of Breath #8.5 grams tiotropium bromide 2.5 2 puff inhalation DAILY #4 grams 10/31/23 mcg/actuation mist for inhalation (Spiriva Respimat) furosemide 20 mg tablet (Lasix) 20 mg PO DAILY #30 tabs 01/07/24 amitriptyline 50 mg tablet 100 mg (2 x 50 mg) PO DAILY 03/18/24 chronic pain 30 days #60 tabs tizanidine 4 mg tablet 4 mg PO BID PRN muscle spasticity 03/18/24 #60 tabs tramadol 50 mg tablet 50 mg PO TID PRN pain (scale score 03/18/24 7-10) #90 tabs Allergies Allergy/AdvReac Type Severity Reaction Status Date / Time codeine Allergy Severe ALGY-Anaphy Verified 06/19/24 19:04 laxis lisinopril AdvReac Severe ADR-Cough Verified 06/19/24 19:04 PFSH ED 2 PFSH: Medical History 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 [place] H/O esophagogastroduodenoscopy few yrs ago H/O colonoscopy (~12/28/19) Cecal polyp, descending colon polyps, sigmoid diverticulosis, internal hemorrhoids History of appendectomy H/O exploratory laparotomy Family History Mother Cancer brain Diabetes Other Hypertension Lung disease Denies family history of Anesthesia complication Bleeding disorder Social History Smoking and tobacco/nicotine status: former use of tobacco/nicotine Quit status (tobacco/nicotine): has quit using Year quit tobacco: 2013 Former quit date comment: 3ppd X 46 years, started at age 17 Second hand smoke exposure: No Alcohol intake: never Substance/Drug Use: never Lives independently: Yes Household members: none Housing: House Marital status: / Current occupational status: disabled Do you think of yourself as: Straight/Heterosexual Current gender identity: Female Yara/Confucianist: Worship Physical Exam 2 Const: GENERAL APPEARANCE: cooperative, in distress and ill appearing; not frail appearing NUTRITIONAL APPEARANCE: overweight HENMT: COMMON NORMALS: normocephalic, atraumatic and Normal external nose present HEAD & SCALP: normocephalic and atraumatic FACE & SINUS: normal facial exam and face symmetric NOSE: Normal external nose present Eye: COMMON NORMALS: Equal, round and reactive pupils present and EOMs intact bilaterally PUPIL: Yes Equal, round and reactive pupils present Neck/C-Spine: GENERAL: Yes trachea midline Chest: CHEST: Yes Symmetrical chest wall rise Resp: EFFORT & INSPECTION: Yes tachypneic and Yes labored AUSCULTATION: r ales and rhonchi Cardio: COMMON NORMALS: regular rate and regular rhythm RATE: regular rate RHYTHM: regular rhythm GI: COMMON NORMALS: Normal to inspection, nondistended, normoactive bowel sounds present Extremity: COMMON NORMALS: no pedal edema Neuro: PATRICIA COMA SCALE: document GCS findings Patricia coma scale eye opening: Spontaneous [place] coma scale verbal response: Orientated [place] coma scale motor response: Obey commands Patricia coma scale total score: 15 S ENSORY EXAM: Yes extremities (intact) Psych: COMMON NORMALS: speech normal SPEECH: Yes normal speech Skin: COMMON NORMALS: no rashes or lesions noted GENERAL SKIN EXAM: no rashes or lesions noted Course 2 Vital Signs: Vital signs: Vital Signs Temperature 98.2 F 06/19/24 19:00 Pulse Rate 73 06/19/24 22:45 Respiratory Rate 24 H 06/19/24 23:22 Blood Pressure 90/62 06/19/24 22:35 Pulse Oximetry 92 06/19/24 23:22 Oxygen Delivery Me thod BiPAP 06/19/24 21:02 Fraction of Inspir ed Oxygen 70 06/19/24 22:30 MDM - SOB/Dyspnea Medical Decision Making Initial saturation was low. Placed on BiPAP on arrival with improvement. Saturations now 93%. There is significant rhonchi and rails on the right side on auscultation. Continue to improve with BiPAP. Low blood pressures at times, but blood pressures are difficult to read automatically on this patient due to upper arm size. Wrist blood pressures have been inaccurate. Manual pressures are in the 90s over 60s range. She is received a sepsis bolus. Rocephin and Zithromax for significant left lower lung zone pneumonia by chest x-ray. Lactic acid is normal. Creatinine is up at 2.4. Her baseline is normal. White blood cell count is 18. Viral panel is negative. CRP is 97. Chest CT requested by hospitalist shows a dense consolidation in the left lower lobe. Mild consolidation in the right lung base. She will go to the ICU given hypoxia with respiratory failure, and borderline hypotension. Hospitalist agrees to admission. Pulmonary embolus is considered, but due to renal function, holding off on CTA. Hospitalist notes that he may heparinize the patient. Lab Data 06/19/24 19:17 06/19/24 19:17 Labs/Radiology: Radiology Impressions Chest X-Ray 06/19/24 19:04 IMPRESSION: Hazy opacities of the left lower lung concerning for pneumonia. Mild left basilar atelectasis. Chest CT 06/19/24 20:45 IMPRESSION: Dense consolidation within the left lower lobe concerning for pneumonia. Mild consolidation within the right lung base. Scattered ground-glass opacities within left upper and lower lung. Laboratory Results WBC 18.16 10^3/uL (3.29-11.43) H 06/19/24 19:17 RBC 4.58 10^6/uL (3.85-5.65) 06/19/24 19:17 Hgb 12.30 g/dL (11.27-16.99) 06/19/24 19:17 Hct 39.6 % (36-47) 06/19/24 19:17 MCV 86.5 fl (85-98) 06/19/24 19:17 MCH 26.9 pg (27-33) L 06/19/24 19:17 MCHC 31.1 g/dL (30-55) 06/19/24 19:17 RDW 16.7 % (12.1-15.1) H 06/19/24 19:17 Plt Count 228 10^3/cmm (157-399) 06/19/24 19:17 MPV 13.1 fL (7.4-10.4) H 06/19/24 19:17 Neut % (Auto) 78.6 % 06/19/24 19:17 Lymph % (Auto) 11.6 % 06/19/24 19:17 [place] % (Auto) 8.7 % 06/19/24 19:17 Eos % (Auto) 0.0 % 06/19/24 19:17 Baso % (Auto) 0.2 % 06/19/24 19:17 Neut # (Auto) 14.28 10^3/uL (1.8-7.7) H 06/19/24 19:17 Lymph # (Auto) 2.1 10^3/uL (0.8-4.8) 06/19/24 19:17 [place] # (Auto) 1.6 10^3/uL (0.2-0.9) H 06/19/24 19:17 Eos # (Auto) 0.0 10^3/uL (0.0-0.8) 06/19/24 19:17 Baso # (Auto) 0.0 10^3/uL (0.0-0.1) 06/19/24 19:17 Nucleated RBC % (auto) 0 % 06/19/24 19:17 Nucleated RBCs # 0.0 /100WBC 06/19/24 19:17 PT 16.10 SECONDS (12.1-14.9) H 06/19/24 16:53 INR 1.25 (0.8-1.2) H 06/19/24 16:53 D-Dimer 1.62 ug/mLFEU (0-0.59) H 06/19/24 16:53 Specimen Type Arterial 06/19/24 19:47 Sample Site Brachial, left 06/19/24 19:47 ABG pH 7.31 (7.35-7.45) L 06/19/24 19:47 ABG pCO2 50.2 mmHg (35-45) H 06/19/24 19:47 ABG pO2 114.0 mmHg (80.0-100.0) H 06/19/24 19:47 ABG HCO3 25.2 mmol/L (22-26) 06/19/24 19:47 ABG Base Excess -1.5 mmol/L (-2.0-2.0) 06/19/24 19:47 Jordan Test N/a 06/19/24 19:47 Hematocrit 36.5 % (37-47) L 06/19/24 19:47 Hgb O2 Saturation 96.2 % (95-100) 06/19/24 19:47 Carboxyhemoglobin 1.6 %THgb (0.4-20.1) 06/19/24 19:47 Methemoglobin 0.5 % (0.4-1.5) 06/19/24 19:47 Total Hemoglobin 11.9 g/dL (12-16) L 06/19/24 19:47 O2 Delivery Device Bipap 06/19/24 19:47 PEEP 6.0 cmH20 06/19/24 19:47 Dba Manager ID Elias 06/19/24 19:47 Sodium 136 mmol/L (136-145) 06/19/24 19:17 Potassium 4.7 mmol/L (3.5-5.1) 06/19/24 19:17 Chloride 99 mmol/L (98-107) 06/19/24 19:17 Carbon Dioxide 26 mmol/L (22-29) 06/19/24 19:17 Anion Gap 15.7 (5-19) 06/19/24 19:17 BUN 26 mg/dL (8-23) H 06/19/24 19:17 Creatinine 2.4 mg/dL (0.5-0.9) H 06/19/24 19:17 GFR Calculation Not Reportable 06/19/24 19:17 Glucose 67 mg/dL (65-115) 06/19/24 19:17 Calculated Osmolality 285 mOsm/kg (285-295) 06/19/24 19:17 Lactic Acid 1.8 mmol/L (0.5-2.2) 06/19/24 19:17 Calcium 8.8 mg/dL (8.5-10.5) 06/19/24 19:17 Total Bilirubin 0.8 mg/dL (0.15-1.2) 06/19/24 19:17 AST 16 U/L (0-32) 06/19/24 19:17 ALT 11 U/L (0-33) 06/19/24 19:17 Alkaline Phosphatase 93 U/L (35-105) 06/19/24 19:17 Creatine Kinase 108 U/L (26-192) 06/19/24 16:53 Troponin T Baseline 33 ng/L (0-10) H 06/19/24 19:17 C-Reactive Protein 97.0 mg/L (0.0-4.9) H 06/19/24 16:53 NT-Pro-B Natriuret Pep 2524 pg/mL (0-125) H 06/19/24 19:17 Total Protein 5.8 g/dL (6.6-8.7) L 06/19/24 19:17 Albumin 3.9 g/dL (3.5-5.2) 06/19/24 19:17 Globulin 1.9 g/dL (1.3-4.6) 06/19/24 19:17 Procalcitonin 18.00 ng/mL (0-0.5) H 06/19/24 16:53 Adenovirus (PCR) Not detected (NOT DETECT) 06/19/24 20:40 C. pneumoniae DNA (PCR) Not detected (NOT DETECT) 06/19/24 20:40 Coronavirus 229E (PCR) Not detected (NOT DETECT) 06/19/24 20:40 Human Metapneumovir PCR Not detected (NOT DETECT) 06/19/24 20:40 Influenza A (H1) PCR Not detected (NOT DETECT) 06/19/24 20:40 Influ A (H1/09) PCR Not detected (NOT DETECT) 06/19/24 20:40 Influenza A (H3) PCR Not detected (NOT DETECT) 06/19/24 20:40 Influenza Type A (PCR) Not detected (NOT DETECT) 06/19/24 20:40 Influenza Type B (PCR) Not detected (NOT DETECT) 06/19/24 20:40 M. pneumoniae (PCR) Not detected (NOT DETECT) 06/19/24 20:40 Parainfluenza 1 (PCR) Not detected (NOT DETECT) 06/19/24 20:40 Parainfluenza 2 (PCR) Not detected (NOT DETECT) 06/19/24 20:40 Parainfluenza 3 (PCR) Not detected (NOT DETECT) 06/19/24 20:40 Parainfluenza 4 (PCR) Not detected (NOT DETECT) 06/19/24 20:40 RSV Type A (PCR) Not detected (NOT DETECT) 06/19/24 20:40 RSV Type B (PCR) Not detected (NOT DETECT) 06/19/24 20:40 Entero/Rhino (PCR) Not detected (NOT DETECT) 06/19/24 20:40 SARS-CoV-2 (PCR) Not detected (NOT DETECT) 06/19/24 20:40 All radiology interpretation(s) finalized by discharge Critical Care Time 2 Critical Care Time: Critical Care Time: Yes Total Critical Care Time: 40 Attestation: This case had a high probability of a clinically significant, sudden, or life threatening deterioration of this patient's condition which required my full and direct attention, intervention and personal management. Time is independent of any procedures performed Discharge Plan Discharge Patient Disposition: Admitted As Inpatient Admit Provider: Boubacar Maki Clinical Impression: Acute hypoxic respiratory failure, Community acquired pneumonia Condition: Serious Coding Level of Care Code ED Sewer Hand for Felicity Ruvalcaba
--- NOTE | 2024-06-19 19:13 | ECG_ITS ---
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
[2024-06-19] MEDS: ipratropium-albuterol 3 mL Neb INHALATION (19:19)
[2024-06-19] MEDS: sodium chloride 0.9% 1,000 ML 999 ML IV (19:20)
[2024-06-19 19:50] LABS: Basophils % 0.2 %; Hematocrit 39.6 % (36-47); Lymphocytes # 2.1 10^3/uL (0.8-4.8); Lymphocytes % 11.6 %; Mean Corpuscular HGB Conc 31.1 g/dL (30-55); Mean Corpuscular Hemoglobin 26.9 pg (27-33); Mean Corpuscular Volume 86.5 fl (85-98); Mean Platelet Volume 13.1 fL (7.4-10.4); Monocytes # 1.6 10^3/uL (0.2-0.9); Monocytes % 8.7 %; Neutrophils # 14.28 10^3/uL (1.8-7.7); Neutrophils % 78.6 %; Nucleated Red Blood Cells % 0 %; Platelet Count 228 10^3/cmm (157-399); Red Blood Count 4.58 10^6/uL (3.85-5.65); Red Cell Distribution Width 16.7 % (12.1-15.1); White Blood Count 18.16 10^3/uL (3.29-11.43)
[2024-06-19 19:56] LABS: Lactic Sepsis W/Reflex 1.8 mmol/L (0.5-2.2)
[2024-06-19 19:58] LABS: ABG PCO2 50.2 mmHg (35-45); ABG PH Result 7.31 (7.35-7.45); Arterial Blood Gas Hematocrit 36.5 % (37-47); Base Excess ABG -1.5 mmol/L (-2.0-2.0); Blood Gas Operator Identificat SAM; Blood Gas Sample Site Brachial, left; Blood Gas Sample Type Arterial; Carboxyhemoglobin 1.6 %THgb (0.4-20.1); HCO3 ABG 25.2 mmol/L (22-26); HGB O2 Sat 96.2 % (95-100); Methemoglobin 0.5 % (0.4-1.5); Oxygen Device BIPAP; Total Hemoglobin 11.9 g/dL (12-16)
[2024-06-19 19:59] LABS: Troponin(5th) Baseline 33 ng/L (0-10)
[2024-06-19 20:08] LABS: Alanine Aminotransferase 11 U/L (0-33); Albumin Level 3.9 g/dL (3.5-5.2); Alkaline Phosphatase 93 U/L (35-105); Anion Gap 15.7 (5-19); Aspartate Amino Transferase 16 U/L (0-32); Blood Urea Nitrogen 26 mg/dL (8-23); Calcium 8.8 mg/dL (8.5-10.5); Carbon Dioxide 26 mmol/L (22-29); Chloride 99 mmol/L (98-107); Creatinine Clr Calc Pharmacy 21.4114; Globulin 1.9 g/dL (1.3-4.6); Glucose 67 mg/dL (65-115); NT Pro B Type Natriuretic Pept 2524 pg/mL (0-125); Osmolality Calculated 285 mOsm/kg (285-295); Potassium 4.7 mmol/L (3.5-5.1); Sodium 136 mmol/L (136-145); Total Bilirubin 0.8 mg/dL (0.15-1.2); Total Protein 5.8 g/dL (6.6-8.7)
[2024-06-19] MEDS: cefTRIAXone 1,000 mg SDV 1000 MG IVP (20:35)
[2024-06-19] MEDS: sodium chloride 0.9% 2,721.54 ML 2721.54 ML IV (20:35)
[2024-06-19] MEDS: azithromycin 500 MG in sodium chloride 0.9% 250 ML 250 MG IV (20:40)
--- NOTE | 2024-06-19 20:45 | CTR_ITS ---
PROCEDURE INFORMATION: Exam: CT Chest Without Contrast; Diagnostic Exam date and time: 06/19/2024 9:14 PM Age: 74 years old Clinical indication: Cough and shortness of breath; Prior surgery; Surgery date: 6+ months; Surgery type: Gb; Patient HX: Cough with SOB and hypoxia; Additional info: SOB hypoxia, per Dr martinez TECHNIQUE: Imaging protocol: Diagnostic computed tomography of the chest without contrast. Radiation optimization: All CT scans at this facility use at least one of these dose optimization techniques: automated exposure control; mA and/or kV adjustment per patient size (includes targeted exams where dose is matched to clinical indication); or iterative reconstruction. COMPARISON: [place] [id number] 06/17/2024 11:36 PM RADIATION DOSE METRICS: Total DLP (mGy-cm): 1088.32 FINDINGS: Lungs: Consolidation within the left lower lobe concerning for pneumonia. Scattered ground-glass opacities within the left upper lobe and left lower lobe. Mild consolidative opacities with linear atelectasis in the right lung base. Pleural spaces: Unremarkable. No pneumothorax. No pleural effusion. Heart: Cardiomegaly. Trace pericardial effusion. Lymph nodes: No enlarged lymph nodes. Calcified left hilar lymph nodes. Vasculature: No aortic aneurysm. Mild atherosclerotic calcifications. Bones/joints: Unremarkable. No acute fracture. Soft tissues: Unremarkable. CT/CT chest wo con [id number] IMPRESSION: Dense consolidation within the left lower lobe concerning for pneumonia. Mild consolidation within the right lung base. Scattered ground-glass opacities within left upper and lower lung.
[2024-06-19 20:53] LABS: Creatine Phosphokinase 108 U/L (26-192)
--- NOTE | 2024-06-19 21:02 | PM.HP ---
Providers/Chief Complaint Primary Care Provider: Dmitriy Martinez MD Chief Complaint: Lower O2, Low BP History of Present Illness Perlita Melton is a 74 year old female with a past medical history of asthma, emphysema, morbid obesity, hyperlipidemia, diabetes, who presents [facility] due to shortness of breath, cough. Patient was here had [facility], 2 days ago for a fall, and right rib pain, after she fell on concrete, landing on her right side, her CT imaging at that time had no acute findings, she normally uses 3 L, she was needing up to 5 L during her ER visit, she was sent home with Toradol for pain control. Since going home, she continued to have right rib pain, shortness of breath, cough, relative immobility, reports of fevers, chills, no nausea, no vomiting, her O2 sats were low at home, so she was brought in, in triage her O2 sats were 67% on room air, she required up to 6 L nasal cannula due to persistent hypoxia, she was placed on BiPAP currently she is on 70% FiO2, having tachypnea, tachycardia, nasal flaring, intercostal retractions, moderate respiratory distress, we discussed with at bedside that currently she is in moderate respiratory failure, with evidence of pneumonia on a chest x-ray with evidence of sepsis, she is quite ill, we discussed the morbidity and mortality associated with respiratory failure, pneumonia. Discussed goals of care, she is a full code, we discussed elective intubation if required and she is agreeable. Will watch her in the ICU closely as she is on 70% FiO2 and moderate respiratory distress, she has a high risk of worsening respiratory status, low threshold for intubation, she has received antibiotics in the emergency room, receiving her sepsis bolus, will monitor closely, patient and voiced understanding, all questions answered, agreed to proceed Review of Systems Const: Reports: fever(s) and chills Card: Reports: other (Right-sided chest wall pain under her right breast) Resp: Reports: dyspnea Neuro: Denies: headache(s) Medications/Allergies Home Medications Medication Instructions Recorded Confirmed Last Taken Type alendronate 70 mg tablet 70 mg PO Q7D 11/26/19 03/29/24 12/27/19 History amlodipine 10 mg tablet 10 mg PO DAILY 11/26/19 03/29/24 12/27/19 History ergocalciferol (vitamin D2) 1,000 1,000 unit PO DAILY 11/26/19 03/29/24 12/27/19 History unit capsule levothyroxine 100 mcg capsule 100 mcg PO DAILY 11/26/19 03/29/24 12/27/19 History losartan 50 mg tablet 50 mg PO DAILY 11/26/19 03/29/24 12/27/19 History metoprolol succinate 25 mg 25 mg PO DAILY 11/26/19 03/29/24 12/27/19 History tablet,extended release 24 hr pantoprazole 40 mg tablet,delayed 40 mg PO DAILY 11/26/19 03/29/24 12/27/19 History release potassium chloride 10 mEq 10 meq PO BID 11/26/19 03/29/24 12/27/19 History tablet,extended release(part/cryst) repaglinide 2 mg tablet 2 mg PO TID 11/26/19 03/29/24 12/27/19 History rosuvastatin 20 mg tablet 20 mg PO DAILY 11/26/19 03/29/24 12/27/19 History ipratropium 0.5 mg-albuterol 3 mg 3 ml inhalation Q6H PRN Shortness 12/06/19 03/29/24 12/27/19 History (2.5 mg base)/3 mL nebulization Of Breath soln aspirin 81 mg tablet,delayed 81 mg PO DAILY 12/28/19 03/29/24 08/29/20 History release (Aspir-) eszopiclone 2 mg tablet 1 mg PO DAILY 01/24/20 03/29/24 Unknown History hydroxyzine HCl 50 mg tablet 50 mg PO QID PRN Pain 06/07/20 03/29/24 Unknown History spironolactone 25 mg tablet 25 mg PO DAILY 06/07/20 03/29/24 Unknown History montelukast 10 mg tablet 10 mg PO DAILY 06/28/20 03/29/24 Unknown History (Singulair) COCK UP SPLINT #1 ea 09/20/20 03/29/24 Unknown Rx celecoxib 200 mg capsule (Celebrex) 200 mg PO DAILY pain #30 caps 03/14/22 03/29/24 Unknown Rx benralizumab 30 mg/mL subcutaneous 30 mg SUBCUT .q 8 weeks #1 mL 05/12/23 03/29/24 Unknown Rx auto-injector (Fasenra Pen) benralizumab 30 mg/mL subcutaneous 30 mg SUBCUT Q28D 3 doses #1 mL 05/12/23 03/29/24 Unknown Rx auto-injector (Fasenra Pen) budesonide-formoterol HFA 160 2 puff inhalation BID #10.2 grams 07/16/23 03/29/24 Unknown Rx mcg-4.5 mcg/actuation aerosol inhaler (Symbicort) azithromycin 500 mg tablet 500 mg PO .every other day copd 07/29/23 03/29/24 Unknown Rx #15 tabs albuterol sulfate 90 mcg/actuation 2 puff inhalation Q6H PRN 10/31/23 03/29/24 Unknown Rx aerosol inhaler (ProAir HFA) Shortness Of Breath #8.5 grams tiotropium bromide 2.5 2 puff inhalation DAILY #4 grams 10/31/23 03/29/24 Unknown Rx mcg/actuation mist for inhalation (Spiriva Respimat) tirzepatide 2.5 mg/0.5 mL mg SUBCUT .weekly 10/31/23 03/29/24 Unknown History subcutaneous pen injector (Carmen) furosemide 20 mg tablet (Lasix) 20 mg PO DAILY #30 tabs 01/07/24 03/29/24 Unknown Rx amitriptyline 50 mg tablet 100 mg (2 x 50 mg) PO DAILY 03/18/24 03/29/24 Unknown Rx chronic pain 30 days #60 tabs tizanidine 4 mg tablet 4 mg PO BID PRN muscle spasticity 03/18/24 03/29/24 Unknown Rx #60 tabs tramadol 50 mg tablet 50 mg PO TID PRN pain (scale score 03/18/24 03/29/24 Unknown Rx 7-10) #90 tabs Allergies Allergy/AdvReac Type Severity Reaction Status Date / Time codeine Allergy Severe ALGY-Anaphy Verified 06/19/24 19:04 laxis lisinopril AdvReac Severe ADR-Cough Verified 06/19/24 19:04 PFSH Acute PFSH: Medical 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 Cervical disc disorder with myelopathy of mid-cervical region Hypothyroidism Hypertension Anxiety and depression GERD (gastroesophageal reflux disease) Chronic low back pain Diabetes Hyperlipidemia Sleep apnea Fibromyalgia CVA (cerebral vascular accident) Migraines History of colon polyps Surgical History History of back surgery x 4 Hx of cholecystectomy H/O: hysterectomy History of carpal tunnel repair right History of decompression of ulnar nerve Release of the ulnar nerve at the right elbow, with subcutaneous transposition; 05/21/2018; [facility] H/O esophagogastroduodenoscopy few yrs ago H/O colonoscopy (~12/28/19) Cecal polyp, descending colon polyps, sigmoid diverticulosis, internal hemorrhoids History of appendectomy H/O exploratory laparotomy Family History Mother Cancer brain Diabetes Other Hypertension Lung disease Denies family history of Anesthesia complication Bleeding disorder Social History Smoking and tobacco/nicotine status: former use of tobacco/nicotine Quit status (tobacco/nicotine): has quit using Year quit tobacco: 2013 Former quit date comment: 3ppd X 46 years, started at age 17 Second hand smoke exposure: No Alcohol intake: never Substance/Drug Use: never Lives independently: Yes Household members: none Housing: House Marital status: / Current occupational status: disabled Do you think of yourself as: Straight/Heterosexual Current gender identity: Female Yara/Faith: Yarsanism Vitals/I&O/Wt Last Vital Signs Temp 98.2 F 06/19/24 19:00 Pulse 66 06/19/24 20:41 Resp 20 H 06/19/24 20:41 BP 96/37 06/19/24 20:41 Pulse Ox 94 06/19/24 20:41 O2 Del Method BiPAP 06/19/24 20:41 FiO2 100 06/19/24 19:34 06/19/24 06/19/24 06/19/24 06:59 14:59 22:59 Intake Total 1000 / 1000 Balance 1000 / 1000 Weight last 48 hrs Weight 90.718 kg Physical Exam Const: COMMON NORMALS: no acute distress and patient oriented x3 ORIENTATION/CONSCIOUSNESS: Yes awake, Yes oriented to person and Yes oriented to place HENMT: OTHER: Currently BiPAP mask in place Eye: COMMON NORMALS: Equal, round and reactive pupils present Neck/C-Spine: COMMON NORMALS: full ROM and no lymphadenopathy Lymph: LYMPHATIC: no lymphadenopathy noted Chest: OTHER: Right chest wall, under right breast, no paradoxical chest wall movement with inhalation and expiration Resp: EFFORT & INSPECTION: Yes abnormal respiratory pattern, Yes tachypneic, Yes respiratory distress, Yes retractions intercostal and supraclavicular, Yes uses accessory muscles, No paradoxical thoraco-abdominal movements and No segmental paradoxical chest wall movement AUSCULTATION: crackles and wheezes Cardio: COMMON NORMALS: no JVD, regular rate, regular rhythm, S1 normal heart sound present and S2 normal heart sound present RATE: tachycardic RHYTHM: regular rhythm HEART SOUNDS: S1 normal heart sound present and S2 normal heart sound present GI: COMMON NORMALS: Normal to inspection, nondistended, normoactive bowel sounds present, Soft to palpation and non-tender Extremity: COMMON NORMALS: no pedal edema Neuro: COMMON NORMALS: patient oriented x3, CN's II-XII intact bilaterally and moves all extremities Psych: COMMON NORMALS: mental status grossly normal Sepsis: Is patient septic: Yes Focused sepsis exam performed: Yes Focused sepsis exam: DP PT pulses palpable, cap refill less than 2 seconds, no mottling lower extremities Date exam was performed: 06/19/24 Time exam was performed: 20:30 Data 06/19/24 19:17 06/19/24 19:17 Micro: Microbiology 06/19/24 19:27 Blood Culture - Preliminary Blood SPECIMEN COLLECTED 06/19/24 19:17 Blood Culture - Preliminary Blood SPECIMEN COLLECTED A&P Assessment and plan (1) Acute hypoxic respiratory failure: (2) Sepsis: (3) Pneumonia: (4) Right-sided chest wall pain: (5) Acute kidney injury: (6) Severe persistent asthma: Qualifiers: Asthma complication type: uncomplicated Qualified Code(s): J45.50 - Severe persistent asthma, uncomplicated (7) Asthma with acute exacerbation: (8) NSTEMI (non-ST elevated myocardial infarction): (9) Acute respiratory distress: Plan Acute hypoxic respiratory failure -With evidence of acute respiratory distress -Tachypnea, tachycardia, intercostal retractions, suprasternal retractions, nasal flaring able to speak a few words but feels short of breath, -With right sided chest wall pain, related to a fall, highly suspicious for bruised rib/contusion/possible fracture, no paradoxical chest wall movement, 70% BiPAP -With pneumonia -With sepsis -With asthma exacerbation, severe persistent Plan -Monitor in the intensive care unit closely -Low threshold for intubation, given risk factors of severely persistent asthma -Order CT of the chest to ensure that she does not have any flail chest or displaced rib fractures -Does report that after her injury she was relatively immobile, suspicious for hypercoagulable event such as a PE, cannot do a CT with IV contrast given creatinine of 2.4, started on heparin drip -Venous ultrasound lower extremity ordered -Cardiac echo ordered -Solu-Medrol 125 mg, followed by 40 mg IV every 8 hours -Vancomycin -Cefepime -Azithromycin -Blood cultures -Respiratory viral panel -DuoNeb -Budesonide -Has received sepsis bolus in the emergency room, BNP is over 2500 hold off of further fluid therapy, unless MAP drops below 65 fluid boluses as needed -MAP around 65, lactic acid 1.8, will consider Levophed therapy to maintain MAP greater than 65 -Full code -Status is critical, prognosis guarded right sided chest wall pain, related to a fall, highly suspicious for bruised rib/contusion/possible fracture, no paradoxical chest wall movement, 70% BiPAP -CT chest ordered -Morphine for pain control History of severe persistent asthma -As above Pneumonia -As above NSTEMI -Serial EKGs, serial troponins, telemetry monitoring sepsis ? Sepsis features met given respiratory failure, hypotension, hypoxia, creatinine 2.4, D-dimer 1.62, leukocytosis, elevated troponin ? Source is pneumonia Acute kidney injury ? Component could be Toradol patient was given for her rib pain ? Creatinine 2.4 ? Monitor closely Full code Heparin drip for DVT prophylaxis Protonix for GI prophylaxis Status is critical, prognosis guarded, monitor in ICU closely, Attestations Medical Necessity Statement*: Patient requires hospitalization, inpatient, greater than 2 midnights, for acute hypoxic respiratory failure, secondary to pneumonia, asthma exacerbation, with sepsis, evidence of septic shock, NSTEMI, MUKUL Coding Level of Care Code Critical Care >/= 30 minutes Critical care time (in minutes): 45 The high probability of a clinically significant, sudden or life threatening deterioration, as referenced in this documentation, required my full and direct attention, intervention and personal management. The critical care time shown is in addition to time spent performing any reported separately billable procedures and includes the following: [x] Data and vital sign review and interpretation [x] Patient assessment, examination and intervention [x] Medication orders and management [x] Patient/Family updates as able [x] Care Coordination and Documentation. Diagnoses Acute hypoxic respiratory failure J96.01 Sepsis A41.9 Pneumonia J18.9 Right-sided chest wall pain R07.89 Acute kidney injury N17.9 Severe persistent asthma without complication J45.50 Asthma complication type: uncomplicated Asthma with acute exacerbation J45.901 NSTEMI (non-ST elevated myocardial infarction) I21.4 Acute respiratory distress R06.03
[2024-06-19 21:12] LABS: D Dimer 1.62 ug/mLFEU (0-0.59)
[2024-06-19 21:31] LABS: Troponin 5 2HR 30.26 ng/L (0-10)
[2024-06-19 21:43] LABS: Troponin 5 2HR Delta -2.74 ABS# (0-10)
[2024-06-19 21:51] LABS: INR 1.25 (0.8-1.2)
--- NOTE | 2024-06-19 21:54 | ECG_ITS ---
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
[2024-06-19 22:36] LABS: Adenovirus Not Detected (NOT DETECT); Chlamydia Pneumoniae Not Detected (NOT DETECT); Coronavirus 229E,HKU1,NL63,OC4 Not Detected (NOT DETECT); Human Metapneumovirus Not Detected (NOT DETECT); Human Rhinovirus/Enterovirus Not Detected (NOT DETECT); Influenza A Not Detected (NOT DETECT); Influenza A H1 Not Detected (NOT DETECT); Influenza A H1-2009 Not Detected (NOT DETECT); Influenza A H3 Not Detected (NOT DETECT); Influenza B Not Detected (NOT DETECT); Mycoplasma Pneumoniae Not Detected (NOT DETECT); Parainfluenza Virus Type 1 Not Detected (NOT DETECT); Parainfluenza Virus Type 2 Not Detected (NOT DETECT); Parainfluenza Virus Type 3 Not Detected (NOT DETECT); Parainfluenza Virus Type 4 Not Detected (NOT DETECT); Respiratory Syncytial Virus A Not Detected (NOT DETECT); Respiratory Syncytial Virus B Not Detected (NOT DETECT); SARS-COV-2 Not Detected (NOT DETECT)
[2024-06-19] MEDS: morphine 4 mg/mL SDV 1 mL 2 MG IVP (23:22)
[2024-06-19] MEDS: heparin 5,000 unit/mL INJ 1 mL IVP (23:51)
[2024-06-19] MEDS: heparin drip 25,000 UNIT/500 ML PREMIX 29 UNIT IV (23:51)
[2024-06-19] MEDS: vancomycin 2,000 MG/400 ML PIGGYBACK 200 MG IV (23:52)
[2024-06-19] MEDS: methylPREDNISolone sod succ 125 mg/2 mL INJ IVP (23:52)
[2024-06-19] MEDS: pantoprazole 40 mg SDV IVP (23:52)
[2024-06-20] VITALS (265 sets, daily range): BP systolic 72–168; BP diastolic 28–144; PULSE 65–101; RESP 12–30; TEMP 36.6–37.3; O2SAT 87–97
[2024-06-20] MEDS: ipratropium-albuterol 3 mL Neb INHALATION ×7 (00:39→23:10)
[2024-06-20 00:42] LABS: Estmated Average Glucose 128; Hemoglobin A1C 6.1 % (4.0-6.0)
[2024-06-20 00:44] LABS: Chol HDL Ratio 2.26 mg/dL (0.0-4.40); Cholesterol 97 mg/dL (0-200); HDL Cholesterol 43 mg/dL (60-100); LDL Cholesterol Calculated 35 mg/dL (50-129); LDL HDL Ratio 0.81 RATIO (0.00-3.22); Thyroid Stimulating Hormone 0.67 uIU/mL (0.27-4.20); Triglycerides 94 mg/dL (0-150)
--- NOTE | 2024-06-20 01:17 | ECG_ITS ---
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1950 Requested By: Robert Euceda Order Number: [id number] Reading MD: ANA BOOTH Measurements Intervals [place] Rate: 68 P: 33 VT: 143 QRS: 12 QRSD: 94 T: 41 QT: 404 QTc: 430 Interpretive Statements SINUS RHYTHM LOW QRS VOLTAGE IN PRECORDIAL LEADS [QRS DEFLECTION < 1.0 mV IN CHEST LEADS] NONSPECIFIC T-WAVE ABNORMALITY Compared to ECG 06/19/2024 21:54:28 Low QRS voltage now present T-wave abnormality now present Electronically Signed On 06-20-2024 18:57:05 CDT by ANA BOOTH [id number]
[2024-06-20 01:45] LABS: Basophils % 0.1 %; Hematocrit 34.6 % (36-47); Lymphocytes # 2.2 10^3/uL (0.8-4.8); Lymphocytes % 16.4 %; Mean Corpuscular HGB Conc 29.8 g/dL (30-55); Mean Corpuscular Volume 90.6 fl (85-98); Mean Platelet Volume 12.7 fL (7.4-10.4); Monocytes # 0.8 10^3/uL (0.2-0.9); Monocytes % 6.1 %; Neutrophils # 10.19 10^3/uL (1.8-7.7); Neutrophils % 76.3 %; Nucleated Red Blood Cells % 0 %; Platelet Count 176 10^3/cmm (157-399); Red Blood Count 3.82 10^6/uL (3.85-5.65); White Blood Count 13.37 10^3/uL (3.29-11.43)
[2024-06-20 02:03] LABS: Troponin 5 6HR 23.35 ng/L (0-10)
[2024-06-20 02:05] LABS: Troponin 5 6HR Delta -9.65 ng/L (0-12)
[2024-06-20 02:06] LABS: Anion Gap 13.9 (5-19); Blood Urea Nitrogen 25 mg/dL (8-23); Carbon Dioxide 28 mmol/L (22-29); Chloride 103 mmol/L (98-107); Creatinine Clr Calc Pharmacy 46.6618; Glucose 133 mg/dL (65-115); Osmolality Calculated 298 mOsm/kg (285-295); Potassium 3.9 mmol/L (3.5-5.1); Sodium 141 mmol/L (136-145)
[2024-06-20] MEDS: morphine 4 mg/mL SDV 1 mL 2 MG IVP ×3 (05:42→17:28)
[2024-06-20 06:43] LABS: Partial Thromboplastin Time 220.3 SECONDS (23.9-36.7)
--- NOTE | 2024-06-20 06:56 | PC.NURSE ---
Contacted Dr. Maki regarding PTT 220.3. Ordered to stop heparin drip, recheck PTT in two hours.
[2024-06-20 07:38] LABS: Glucose Point of Care 165 mg/dL (70-110)
[2024-06-20] MEDS: insulin lispro 100 unit/1 mL SUBCUT ×3 (08:03→18:53)
[2024-06-20] MEDS: methylPREDNISolone sod succ 40 mg/mL INJ IVP ×3 (08:03→23:40)
[2024-06-20] MEDS: atorvastatin 40 mg Tablet 80 MG PO (08:19)
[2024-06-20] MEDS: aspirin 81 mg EC Tablet PO (08:19)
[2024-06-20] MEDS: levothyroxine 100 mcg Tablet PO (08:19)
[2024-06-20] MEDS: budesonide 0.5 mg/2 mL Neb INHALATION ×2 (08:19→20:01)
[2024-06-20] MEDS: cefepime 1,000 mg SDV 1000 MG IV (08:24)
[2024-06-20] MEDS: sodium chloride 0.9% 500 ML 999 ML IV ×2 (08:42→19:09)
[2024-06-20 09:52] LABS: Partial Thromboplastin Time 48.6 SECONDS (23.9-36.7)
--- NOTE | 2024-06-20 10:47 | P.PHAVANC_ITS ---
Vancomycin Goal - Goal Vancomycin Goal:: 10-15 mg/L Vancomycin Indication:: Pneumonia - Therapy Current therapy:: Azithromycin (500mg IVPB Q24H) Day of therpy:: Day [2]of [] . Actual body weight (kg): 102.5 kg [place] body weight: 47.80 Dosing weight (kg): 102.5 - Data Labs: WBC 13.37 10^3/uL (3.29-11.43) H 06/20/24 01:24 RBC 3.82 10^6/uL (3.85-5.65) L 06/20/24 01:24 Hgb 10.30 g/dL (11.27-16.99) L 06/20/24 01:24 Hct 34.6 % (36-47) L 06/20/24 01:24 MCV 90.6 fl (85-98) 06/20/24 01:24 MCH 27.0 pg (27-33) 06/20/24 01:24 MCHC 29.8 g/dL (30-55) L 06/20/24 01:24 RDW 17.0 % (12.1-15.1) H 06/20/24 01:24 Sodium 141 mmol/L (136-145) 06/20/24 01:24 Potassium 3.9 mmol/L (3.5-5.1) 06/20/24 01:24 Chloride 103 mmol/L (98-107) 06/20/24 01:24 Carbon Dioxide 28 mmol/L (22-29) 06/20/24 01:24 Anion Gap 13.9 (5-19) 06/20/24 01:24 BUN 25 mg/dL (8-23) H 06/20/24 01:24 Creatinine 1.2 mg/dL (0.5-0.9) H 06/20/24 01:24 GFR Calculation Not Reportable 06/20/24 01:24 Last dialysis session:: N/A Drug administration history:: Medications Azithromycin 500 mg/ Sodium (Chloride) 250 mls @ 250 mls/hr IV Q24H ESTRELLITA; Protocol Vancomycin HCl (Vancocin) 1,750 mg in 350 mls @ 175 mls/hr IV Q36H ESTRELLITA Discontinued Medications Vancomycin HCl (Vancocin) 2,000 mg in 400 mls @ 200 mls/hr IV ONCE ONE Stop: 06/20/24 01:29 Last Admin: 06/20/24 07:10 Dose: Infused Treatment plan:: new consult (dosed by Telepharmacy) Regimen:: Vancomycin 200mg load on 06/19/24 @ 2330 Vancomycin 1750 IVPB Q36H Follow up:: Scr daily with AM labs Will receive trough before 4th dose
[2024-06-20] MEDS: albumin 25 G/100 ML BAG 60 G IV (11:12)
[2024-06-20] MEDS: pantoprazole 40 mg SDV IVP ×2 (11:13→22:19)
[2024-06-20 11:26] LABS: Glucose Point of Care 192 mg/dL (70-110)
--- NOTE | 2024-06-20 11:29 | PC.NURSE ---
Addendum entered by Duke Guzman RN 06/20/24 12:06: Despite fluid bolus and albumin, Blow pressure has now become consistently low. Nurse verified blood pressure manually and the automatic blood pressure is correct. Nurse alerted Dr Solares. Received orders for levophed. Addendum entered by Duke Guzman RN 06/20/24 11:34: After fluid bolus, Blood pressures continue to be low or borderline low. Nurse alerted Dr Solares. Received orders for albumin. COnsent form signed by patient. Original Note: Late note: At 0730, a cheetah noninvasive fluid challenge was performed due to borderline low blood pressures and sporadic low blood pressures. SVI delta 42.8% indicating fluid responsiveness. Nurse alerted Dr Solares and received orders for 500mL one time fluid bolus.
--- NOTE | 2024-06-20 11:35 | PC.NURSE ---
PTT resulted, 48.6. Nurse alerted Dr Solares. Received order to restart heparin at 10.3 units/kg/hr. Nurse restarted heparin and ordered PTT for 1730.
[2024-06-20] MEDS: norepinephrine 4 MG/250 ML BAG 7.5 MG IV (12:06)
--- NOTE | 2024-06-20 13:01 | USCV_ITS ---
Perlita Melton Age: 74 Gender: F : 1950 Exam Date: 06/20/2024 16:01 Ordering Phys: Ok Solares MD Technologist: Tex Lees Exam Location: [facility] Indication: eval for chf BP: 98 / 46 HR: 101 Rhythm: Sinus Technical Quality: Suboptimal MEASUREMENTS (Male / Female) Normal Values 2D ECHO LV Diastolic Diameter PLAX 5.1 cm 4.2 - 5.9 / 3.9 - 5.3 cm IVS Diastolic Thickness 1.1 cm 0.6 - 1.0 / 0.6 - 0.9 cm IVS Systolic Thickness 1.7 cm LVPW Diastolic Thickness 1.6 cm 0.6 - 1.0 / 0.6 - 0.9 cm LVPW Systolic Thickness 2.1 cm LVOT Diameter 2.0 cm LV Ejection Fraction 2D Teich 78.9 % LV Ejection Fraction MOD 4C 72.4 % LV Ejection Fraction MOD 2C 71.0 % LV Ejection Fraction 2C AL 70.7 % LA Diameter 4.7 cm RA Systolic Volume 4C AL 82.8 ml RA Systolic Volume 4C MOD 82.5 ml Aorta at Sinotubular Diameter 2.0 cm IVC Diameter 2.4 cm M-MODE LA Ao Ratio MM 1.7 AV Cusp Separation MM 1.8 cm DOPPLER AV Peak Velocity 230.0 cm/s LVOT Peak Velocity 173.0 cm/s AV Area Cont Eq vti 2.1 cm squared AV Area Cont Eq pk 2.4 cm squared MV Peak Velocity 132.0 cm/s MV Area PHT 5.1 cm squared Mitral E to A Ratio 0.9 TR Peak Velocity 355.0 cm/s TR Peak Gradient 50.4 mmHg TR Mean Velocity 293.0 cm/s TR Mean Gradient 36.0 mmHg TR Velocity Time Integral 92.5 cm PV Peak Velocity 121.7 cm/s RV Ejection Time 0.3 s FINDINGS Left Ventricle Normal left ventricular size, systolic function and wall thickness, with no regional wall motion abnormalities. Left ventricular ejection fraction 70% and hyperdynamic. Normal diastolic filling pattern. Right Ventricle The right ventricle is normal in size and function. Right Atrium The right atrium is normal in size. Left Atrium The left atrium is normal in size. Mitral Valve Structurally normal mitral valve without significant stenosis or prolapse. There is no mitral regurgitation. Aortic Valve Structurally normal aortic valve without significant sclerosis or stenosis. There is no aortic regurgitation. Tricuspid Valve Structurally normal tricuspid valve without significant stenosis or regurgitation. Pulmonary artery systolic pressure is normal. Pulmonic Valve Structurally normal pulmonic valve without significant stenosis. There is no pulmonic regurgitation. Pericardium Normal pericardium without effusion. Aorta Normal ascending aorta dimension. IVC The inferior vena cava appears normal. CONCLUSIONS 1-Normal left ventricular size, systolic function and wall thickness, with no regional wall motion abnormalities. Left ventricular ejection fraction 70% and hyperdynamic. Normal diastolic filling pattern 2-There is no pericardial effusion. 3-No significant valve abnormalities. 4-There is no pericardial effusion. Tere Woods MD (Electronically Signed) Final Date: 20 June 2024 17:18 S
--- NOTE | 2024-06-20 16:38 | P.PN_ITS ---
Subjective 2 Subjective: Patient endorses continued shortness of breath. She is noted to be BiPAP dependent. She is okay with intubation if needed. Patient remains hypotensive requiring initiation of vasopressor support. She has hoahaoism members bedside who are supportive. Medications: Reviewed: Yes Vitals/I&O/Wt Last Vital Signs Temp 98.4 F 06/20/24 12:25 Pulse 84 06/20/24 15:35 Resp 21 H 06/20/24 15:26 BP 97/56 06/20/24 13:45 Pulse Ox 97 06/20/24 15:28 O2 Del Method BiPAP 06/20/24 12:25 FiO2 60 06/20/24 15:28 06/20/24 06/20/24 06/20/24 06:59 14:59 22:59 Intake Total 203.483 / 0542.421 8855.54 / 3621.54 100 / 3721.54 Output Total 300 / 300 Balance -96.517 / 9133.607 8141.54 / 3621.54 100 / 3721.54 Weight last 48 hrs Weight 102.5 kg Weight 105.279 kg Weight 90.718 kg Physical Exam 2 Narrative: General: Patient is awake. Ill-appearing. Head: Normocephalic. Atraumatic. EOM intact. BiPAP. Neck: JVD difficult to assess due to body habitus Cardiovascular: Rhythm regular. No gallops. No murmurs. In shock on vasopressor Lungs: Diffuse rhonchi. Poor to moderate air movement. Tachypneic. Unable to complete sentences due to respiratory distress. Use of accessory muscles at times. Skin: No jaundice. No rashes. Abdomen: Normal bowel sounds, abdomen soft and nontender. Genito Urinary: Walker catheter. Rectal: Rectal exam not performed since no symptoms indicated blood loss. Extremities: No cyanosis or clubbing. Musculoskeletal: No swollen or erythematous joints. Neurological: Moves all 4 extremities. No myoclonus. Urinary Catheter Management: Walker: Cath Placed During This Visit: yes Reason for Continuing Indwelling Catheter: Accurate Measurement of Urinary Output in Critically Ill Patients Urinary Catheter Date of Insertion: 06/19/24 Urinary Catheter Time of Insertion: 23:00 Data 06/20/24 01:24 06/20/24 01:24 Micro: Microbiology 06/19/24 23:25 Gram Stain - Final Sputum - Expectorated Sputum 06/19/24 19:27 Blood Culture - Preliminary Blood SPECIMEN COLLECTED 06/19/24 19:17 Blood Culture - Preliminary Blood SPECIMEN COLLECTED A&P Assessment and plan (1) Acute hypoxic respiratory failure: (2) Sepsis: (3) Pneumonia: (4) Right-sided chest wall pain: (5) Acute kidney injury: (6) Severe persistent asthma: Qualifiers: Asthma complication type: uncomplicated Qualified Code(s): J45.50 - Severe persistent asthma, uncomplicated (7) Asthma with acute exacerbation: (8) NSTEMI (non-ST elevated myocardial infarction): (9) Acute respiratory distress: Plan Septic shock -Source multifocal community-acquired pneumonia -Patient has received greater than 30 mL/kg body weight IV fluid bolus -Start Levophed for MAP goal of 65 mmHg -N.p.o. until vasopressor requirements stabilized -Follow cultures -Continue vancomycin -Screen for MRSA -Continue cefepime -Continue azithromycin for atypical coverage -N.p.o. until vasopressor requirements stabilized Acute on chronic hypoxic respiratory failure 2/2 multifocal pneumonia and asthma exacerbation Acute hypercapnic respiratory failure -Imaging reviewed -Requiring noninvasive mechanical ventilation Acute asthma exacerbation History of severe persistent asthma -Continue Solu-Medrol -Continue Pulmicort -Scheduled DuoNebs -Treat underlying pneumonia Acute myocardial injury secondary to respiratory distress -Troponin down trended -EKG reviewed -Discontinue heparin History of heart failure -Patient unaware of ejection fraction -Obtain echocardiogram -Strict I's and O's -Daily weights Acute kidney injury -Suspected prerenal in the setting of sepsis -Management as above DVT prophylaxis: Lovenox CODE STATUS: Full code Attestations 2 Medical Necessity Statement*: Patient septic shock requiring vasopressor with significant endorgan damage with kidney injury and respiratory failure requiring intensive care with IV vasopressors, IV antibiotics, IV steroids, respiratory support, and supportive care. Critical Care Time: The high probability of a clinically significant, sudden or life threatening deterioration of the patient's respiratory, renal, vascular system(s) required my full and direct attention, intervention and personal management. The critical care time is as shown. This time is in addition to time spent performing any reported procedures but includes the following: [x] Data and vital sign review and interpretation [x] Patient assessment, examination and intervention [x] Documentation [x] Medication orders and management Critical Care Time (min): 45 Coding Level of Care Code Acute Code for Chg Fwd Diagnoses Acute hypoxic respiratory failure J96.01 Sepsis A41.9 Pneumonia J18.9 Right-sided chest wall pain R07.89 Acute kidney injury N17.9 Severe persistent asthma without complication J45.50 Asthma complication type: uncomplicated Asthma with acute exacerbation J45.901 NSTEMI (non-ST elevated myocardial infarction) I21.4 Acute respiratory distress R06.03
[2024-06-20] MEDS: vancomycin 1,250 MG/250 ML PIGGYBACK 166.67 MG IV (17:07)
[2024-06-20 17:38] LABS: Glucose Point of Care 191 mg/dL (70-110)
--- NOTE | 2024-06-20 18:39 | PC.NURSE ---
SHift SUmmary: Uneventful shift. Rested in bed throughout the day. Bipap FIO2 decreased from 70% down to 55%. Heparin discontinued. Started on a low rate of levophed. Precedex for anxiety.
[2024-06-20 19:00] LABS: Covid PCR NEGATIVE (Negative); Influenza A NEGATIVE (Negative); Influenza B NEGATIVE (Negative); Respiratory Syncytial Virus Ce NEGATIVE (Negative)
[2024-06-20] MEDS: dexmedeTOMIDine 0.9 % NaCL 400 MCG/100 ML PREMIX 7.69 MCG IV (19:08)
--- NOTE | 2024-06-20 21:00 | USR_ITS ---
PROCEDURE INFORMATION: Exam: US Duplex Lower Extremity Veins, Bilateral Exam date and time: 06/20/2024 10:54 AM Age: 74 years old Clinical indication: Edema, localized; Lower extremity, bilateral; Additional info: Fall, swelling TECHNIQUE: Imaging protocol: Real-time duplex ultrasound of the bilateral extremities with 2-D malloy scale, color Doppler flow and spectral waveform analysis including responses to compression and other maneuvers (when performed) with image documentation. Complete exam focused on the lower extremity veins. COMPARISON: US soft tissue/extremity [id number] 04/21/2019 11:48 AM FINDINGS: Right deep veins: Unremarkable. The common femoral, femoral, proximal profunda femoral and popliteal veins are patent without thrombus. Normal Doppler waveforms. Normal compressibility and/or augmentation response. Left deep veins: Unremarkable. The common femoral, femoral, proximal profunda femoral and popliteal veins are patent without thrombus. Normal Doppler waveforms. Normal compressibility and/or augmentation response. Superficial veins: Greater saphenous veins at the saphenofemoral junctions are patent bilaterally without thrombus. Soft tissues: Unremarkable. US/CV venous duplex [facility] [id number] IMPRESSION: No evidence of deep vein thrombosis involving the bilateral lower extremities.
[2024-06-20] MEDS: enoxaparin 40 mg/0.4 mL Syringe SUBCUT (21:11)
[2024-06-20] MEDS: azithromycin 500 MG in sodium chloride 0.9% 250 ML 250 MG IV (21:12)
[2024-06-20 21:24] LABS: Glucose Point of Care 170 mg/dL (70-110)
[2024-06-21] VITALS (270 sets, daily range): BP systolic 95–215; BP diastolic 47–174; PULSE 65–96; RESP 11–34; TEMP 36.6–36.9; O2SAT 86–94
[2024-06-21] MEDS: morphine 4 mg/mL SDV 1 mL 2 MG IVP ×4 (02:58→21:32)
[2024-06-21] MEDS: ipratropium-albuterol 3 mL Neb INHALATION ×6 (03:15→23:45)
[2024-06-21 03:41] LABS: Basophils % 0.1 %; Lymphocytes # 0.7 10^3/uL (0.8-4.8); Lymphocytes % 6.3 %; Mean Corpuscular HGB Conc 29.2 g/dL (30-55); Mean Corpuscular Hemoglobin 27.1 pg (27-33); Mean Platelet Volume 12.4 fL (7.4-10.4); Monocytes # 0.4 10^3/uL (0.2-0.9); Monocytes % 3.1 %; Neutrophils # 10.33 10^3/uL (1.8-7.7); Neutrophils % 89.9 %; Nucleated Red Blood Cells % 0 %; Platelet Count 192 10^3/cmm (157-399); Red Blood Count 3.87 10^6/uL (3.85-5.65)
[2024-06-21 04:02] LABS: Alanine Aminotransferase 9 U/L (0-33); Albumin Level 3.3 g/dL (3.5-5.2); Alkaline Phosphatase 78 U/L (35-105); Anion Gap 17.2 (5-19); Aspartate Amino Transferase 9 U/L (0-32); Blood Urea Nitrogen 25 mg/dL (8-23); Calcium 8.1 mg/dL (8.5-10.5); Carbon Dioxide 19 mmol/L (22-29); Chloride 108 mmol/L (98-107); Creatinine Clr Calc Pharmacy 50.1045; Globulin 2.3 g/dL (1.3-4.6); Glucose 192 mg/dL (65-115); Magnesium 1.9 mg/dL (1.7-2.3); Osmolality Calculated 300 mOsm/kg (285-295); Phosphorus 2.5 mg/dL (2.5-4.5); Potassium 4.2 mmol/L (3.5-5.1); Sodium 140 mmol/L (136-145); Total Bilirubin 0.3 mg/dL (0.15-1.2); Total Protein 5.6 g/dL (6.6-8.7)
[2024-06-21] MEDS: dexmedeTOMIDine 0.9 % NaCL 400 MCG/100 ML PREMIX 7.69 MCG IV (06:38)
[2024-06-21 07:27] LABS: Glucose Point of Care 171 mg/dL (70-110)
[2024-06-21] MEDS: methylPREDNISolone sod succ 40 mg/mL INJ IVP ×3 (07:33→23:40)
[2024-06-21] MEDS: insulin lispro 100 unit/1 mL SUBCUT ×3 (07:35→18:28)
[2024-06-21] MEDS: budesonide 0.5 mg/2 mL Neb INHALATION ×2 (08:01→20:03)
--- NOTE | 2024-06-21 09:03 | PC.PHAR ---
Pt on bipap-verified medications with YANNI Morfin
[2024-06-21] MEDS: levothyroxine 100 mcg Tablet PO (09:46)
[2024-06-21] MEDS: aspirin 81 mg EC Tablet PO (09:48)
[2024-06-21] MEDS: atorvastatin 40 mg Tablet 80 MG PO (09:48)
[2024-06-21] MEDS: cefepime 1,000 mg SDV 1000 MG IV (09:51)
[2024-06-21] MEDS: vancomycin 1,250 MG/250 ML PIGGYBACK 166.6 MG IV (12:13)
[2024-06-21] MEDS: pantoprazole 40 mg SDV IVP ×2 (12:13→23:40)
--- NOTE | 2024-06-21 12:21 | PC.SOCIAL ---
IMM Updated Updated pt on IMM. No questions voiced. Provided pt a copy. Initialed, dated, & timed a copy & placed in chart.
--- NOTE | 2024-06-21 12:22 | P.PN_ITS ---
Subjective 2 Subjective: Seen this morning. Patient is on BiPAP FiO2 down to 50%. Off Levophed drip since 2 AM. Family ember at bedside. RN at bedside as well. Give me a thumbs up when I asked her how she was feeling. Vitals/I&O/Wt Last Vital Signs Temp 98.5 F 06/21/24 07:50 Pulse 69 06/21/24 11:05 Resp 20 H 06/21/24 11:04 BP 111/60 06/21/24 08:25 Pulse Ox 92 06/21/24 11:04 O2 Del Method BiPAP 06/21/24 11:04 O2 Flow Rate 55 06/20/24 16:25 FiO2 50 06/21/24 11:04 06/20/24 06/21/24 06/21/24 22:59 06:59 14:59 Intake Total 804.096 / 4425.636 109.110 / 4534.746 547.758 / 547.758 Output Total 175 / 175 600 / 775 175 / 175 Balance 629.096 / 4250.636 -490.890 / 3759.746 372.758 / 372.758 Weight last 48 hrs Weight 102 kg Weight 102.5 kg Weight 105.279 kg Weight 90.718 kg Physical Exam 2 Narrative: General: Patient is awake. Sick appearing currently on BiPAP. Head: Normocephalic. Atraumatic. EOM intact. BiPAP. Cardiovascular: Rhythm regular. No gallops. No murmurs. In shock on vasopressor Lungs: Diffuse rhonchi. Poor to moderate air movement. Use of accessory muscles at times. Abdomen: Normal bowel sounds, abdomen soft and nontender. Genito Urinary: Walker catheter. Extremities: No cyanosis or clubbing. Musculoskeletal: No swollen or erythematous joints. Neurological: Moves all 4 extremities. No myoclonus. Urinary Catheter Management: Walker: Cath Placed During This Visit: yes Reason for Continuing Indwelling Catheter: Accurate Measurement of Urinary Output in Critically Ill Patients Urinary Catheter Date of Insertion: 06/19/24 Urinary Catheter Time of Insertion: 23:00 Data 06/21/24 03:13 06/21/24 03:13 Micro: Microbiology 06/19/24 19:27 Blood Culture - Preliminary Blood NEGATIVE TO DATE 06/19/24 19:17 Blood Culture - Preliminary Blood NEGATIVE TO DATE 06/19/24 23:25 Gram Stain - Final Sputum - Expectorated Sputum A&P Assessment and plan (1) Acute hypoxic respiratory failure: (2) Sepsis: (3) Pneumonia: (4) Right-sided chest wall pain: (5) Acute kidney injury: (6) Severe persistent asthma: Qualifiers: Asthma complication type: uncomplicated Qualified Code(s): J45.50 - Severe persistent asthma, uncomplicated (7) Asthma with acute exacerbation: (8) NSTEMI (non-ST elevated myocardial infarction): (9) Acute respiratory distress: Plan Septic shock -Source multifocal community-acquired pneumonia -Patient has received greater than 30 mL/kg body weight IV fluid bolus -Start Levophed for MAP goal of 65 mmHg -N.p.o. until vasopressor requirements stabilized -Follow cultures -Continue vancomycin -Screen for MRSA -Continue cefepime -Continue azithromycin for atypical coverage -N.p.o. until vasopressor requirements stabilized Acute on chronic hypoxic respiratory failure 2/2 multifocal pneumonia and asthma exacerbation Acute hypercapnic respiratory failure -Imaging reviewed -Requiring noninvasive mechanical ventilation Acute asthma exacerbation History of severe persistent asthma -Continue Solu-Medrol -Continue Pulmicort -Scheduled DuoNebs -Treat underlying pneumonia Acute myocardial injury secondary to respiratory distress -Troponin down trended -EKG reviewed -Discontinue heparin History of heart failure -Patient unaware of ejection fraction -Obtain echocardiogram -Strict I's and O's -Daily weights Acute kidney injury -Suspected prerenal in the setting of sepsis -Management as above DVT prophylaxis: Lovenox CODE STATUS: Full code 06/21 Seen today. Levophed has been off since last night 2 AM. Continue cefepime, azithromycin at this time Continue vancomycin Follow cultures Continue BiPAP and wean off as able. Continue Solu-Medrol, Pulmicort, scheduled DuoNebs Echocardiogram ordered shows: LVEF 70% hyperdynamic. Normal diastolic filling pattern. MUKUL improving. Creatinine 1.1. Urine culture pending at this time. Continue to monitor in ICU today secondary to respiratory status. If remains stable or is able to tolerate being off BiPAP and may be transition to nasal cannula may transfer to floor in a.m. Attestations 2 Medical Necessity Statement*: Continue ICU level care. Patient is at risk of respiratory deterioration and intubation therefore we will continue to monitor in ICU today. If remains stable and starts to improve may transfer to floor in AM. Diagnoses Acute hypoxic respiratory failure J96.01 Sepsis A41.9 Pneumonia J18.9 Right-sided chest wall pain R07.89 Acute kidney injury N17.9 Severe persistent asthma without complication J45.50 Asthma complication type: uncomplicated Asthma with acute exacerbation J45.901 NSTEMI (non-ST elevated myocardial infarction) I21.4 Acute respiratory distress R06.03
[2024-06-21 12:37] LABS: Glucose Point of Care 166 mg/dL (70-110)
[2024-06-21 16:02] LABS: Glucose Point of Care 162 mg/dL (70-110)
--- NOTE | 2024-06-21 16:14 | PC.NURSE ---
Due to poor urine output, nurse has concerns for future peripheral edema. Nurse suggested removal of jewelry. Patient removed her rings and gave them to friend Guevara Coleman to take home.
--- NOTE | 2024-06-21 19:50 | PC.NURSE ---
Shift SUmmary: up to a chair for about 10 hours today. While in a chair O2 requirements were 10L high flow nasal cannula. started on a clear liquid diet which patient has tolerated well. 575mL of urine out. Patient is eager to start more activity tommorow.
[2024-06-21] MEDS: azithromycin 500 MG in sodium chloride 0.9% 250 ML 250 MG IV (21:31)
[2024-06-21] MEDS: enoxaparin 40 mg/0.4 mL Syringe SUBCUT (21:31)
[2024-06-21] MEDS: LORazepam 2 mg/mL INJ 1 mL 0.5 MG IVP (21:32)
[2024-06-21 23:24] LABS: Glucose Point of Care 159 mg/dL (70-110)
[2024-06-22] VITALS (102 sets, daily range): BP systolic 90–155; BP diastolic 50–104; PULSE 73–99; RESP 14–30; TEMP 36.4–37.1; O2SAT 87–99
[2024-06-22] MEDS: ipratropium-albuterol 3 mL Neb INHALATION ×6 (03:13→23:59)
[2024-06-22] MEDS: vancomycin 1,250 MG/250 ML PIGGYBACK 166.6 MG IV ×2 (05:27→23:55)
[2024-06-22 07:57] LABS: Glucose Point of Care 161 mg/dL (70-110)
[2024-06-22] MEDS: budesonide 0.5 mg/2 mL Neb INHALATION ×2 (08:15→20:23)
[2024-06-22] MEDS: cefepime 1,000 mg SDV 1000 MG IV (08:22)
[2024-06-22] MEDS: atorvastatin 40 mg Tablet 80 MG PO (08:23)
[2024-06-22] MEDS: levothyroxine 100 mcg Tablet PO (08:23)
[2024-06-22] MEDS: methylPREDNISolone sod succ 40 mg/mL INJ IVP ×3 (08:24→23:56)
[2024-06-22] MEDS: aspirin 81 mg EC Tablet PO (08:24)
[2024-06-22] MEDS: insulin lispro 100 unit/1 mL SUBCUT ×3 (08:24→18:04)
[2024-06-22] MEDS: morphine 4 mg/mL SDV 1 mL 2 MG IVP ×3 (08:33→21:33)
--- NOTE | 2024-06-22 09:47 | XR_ITS ---
WS: [id number] XR chest 1V portable [id number] REASON FOR EXAM: tuberculosis rule out FINDINGS: Chest is significantly rotated to the left. Reticular interstitial lung opacities and small areas of atelectasis persist in the right lower lung field, probably with some resolution. The diffuse interstitial and alveolar lung opacities in the left lower lung field seen on the previou s examination are not readily identified. The chest is otherwise unchanged. XR/XR chest 1V portable [id number] IMPRESSION: Rotated position of the chest could obscure the left lower lung abnormalities w ith the cardiac silhouette. However if significant improvement of the lung abno rmalities has occurred in the lung opacities are more likely atelectasis and pu lmonary edema. A better positioned chest x-ray is recommended and follow-up.
[2024-06-22] MEDS: FUROsemide 10 mg/mL SDV 2mL 20 MG IVP ×2 (10:29→11:20)
[2024-06-22] MEDS: pantoprazole 40 mg SDV IVP ×2 (10:29→23:55)
[2024-06-22 11:31] LABS: Glucose Point of Care 176 mg/dL (70-110)
--- NOTE | 2024-06-22 12:31 | P.PN_ITS ---
Subjective 2 Subjective: seen this am pt on nc 10L saturating 91% states she is starting to feel better Vitals/I&O/Wt Last Vital Signs Temp 98.8 F 06/22/24 08:00 Pulse 92 06/22/24 12:00 Resp 20 H 06/22/24 12:00 BP 123/71 06/22/24 12:00 Pulse Ox 93 06/22/24 12:00 O2 Del Method High Flow Nasal Cannula 06/22/24 12:00 O2 Flow Rate 8 06/22/24 12:00 FiO2 50 06/22/24 08:00 06/21/24 06/22/24 06/22/24 22:59 06:59 14:59 Intake Total 710 / 1266.862 310 / 1576.862 360 / 360 Output Total 100 / 575 300 / 875 200 / 200 Balance 610 / 691.862 10 / 701.862 160 / 160 Weight last 48 hrs Weight 100 kg Weight 102 kg Physical Exam 2 Narrative: General: Patient is awake alert and oriented x3, on 10L [place] Head: Normocephalic. Atraumatic. EOM intact. Cardiovascular: Rhythm regular. No gallops. No murmurs. Lungs: clear to auscultation b/l, significant improvement than prior day Abdomen: Normal bowel sounds, abdomen soft and nontender. Genito Urinary: Walker catheter. Extremities: No cyanosis or clubbing. Musculoskeletal: No swollen or erythematous joints. Neurological: Moves all 4 extremities. No myoclonus. Urinary Catheter Management: Walker: Cath Placed During This Visit: yes Reason for Continuing Indwelling Catheter: Accurate Measurement of Urinary Output in Critically Ill Patients Urinary Catheter Date of Insertion: 06/19/24 Urinary Catheter Time of Insertion: 23:00 Data 06/21/24 03:13 06/21/24 03:13 Micro: Microbiology 06/19/24 23:25 Gram Stain - Final Sputum - Expectorated Sputum Sputum Culture - Final 06/20/24 17:30 Gram Stain - Final Sputum - Expectorated Sputum Sputum Culture - Final A&P Assessment and plan (1) Acute hypoxic respiratory failure: (2) Sepsis: (3) Pneumonia: (4) Right-sided chest wall pain: (5) Acute kidney injury: (6) Severe persistent asthma: Qualifiers: Asthma complication type: uncomplicated Qualified Code(s): J45.50 - Severe persistent asthma, uncomplicated (7) Asthma with acute exacerbation: (8) NSTEMI (non-ST elevated myocardial infarction): (9) Acute respiratory distress: Plan Septic shock -Source multifocal community-acquired pneumonia -Patient has received greater than 30 mL/kg body weight IV fluid bolus -Start Levophed for MAP goal of 65 mmHg -N.p.o. until vasopressor requirements stabilized -Follow cultures -Continue vancomycin -Screen for MRSA -Continue cefepime -Continue azithromycin for atypical coverage -N.p.o. until vasopressor requirements stabilized Acute on chronic hypoxic respiratory failure 2/2 multifocal pneumonia and asthma exacerbation Acute hypercapnic respiratory failure -Imaging reviewed -Requiring noninvasive mechanical ventilation Acute asthma exacerbation History of severe persistent asthma -Continue Solu-Medrol -Continue Pulmicort -Scheduled DuoNebs -Treat underlying pneumonia Acute myocardial injury secondary to respiratory distress -Troponin down trended -EKG reviewed -Discontinue heparin History of heart failure -Patient unaware of ejection fraction -Obtain echocardiogram -Strict I's and O's -Daily weights Acute kidney injury -Suspected prerenal in the setting of sepsis -Management as above DVT prophylaxis: Lovenox CODE STATUS: Full code 06/22 did not require levophed again, appearing better Continue cefepime, azithromycin at this time Continue vancomycin Follow cultures Continue BiPAP and wean off as able. Continue Solu-Medrol, Pulmicort, scheduled DuoNebs Echocardiogram ordered shows: LVEF 70% hyperdynamic. Normal diastolic filling pattern. MUKUL improving. Creatinine 1.1. Urine culture pending at this time. states she has been treated for tb before will check for tb with gold quantiferon although suspicion low at this time currently on 10L NC will order lasix 40 iv x1, mild pulm vas congestion on xray Continue to monitor in ICU today secondary to respiratory status. If remains stable or is able to tolerate being off BiPAP and may be transition to nasal cannula may transfer to floor in a.m. Pt has high o2 requirements of 10L NC. Will continue ICU stay Attestations 2 Medical Necessity Statement*: continue ICU stay due to high O2 requirement Diagnoses Acute hypoxic respiratory failure J96.01 Sepsis A41.9 Pneumonia J18.9 Right-sided chest wall pain R07.89 Acute kidney injury N17.9 Severe persistent asthma without complication J45.50 Asthma complication type: uncomplicated Asthma with acute exacerbation J45.901 NSTEMI (non-ST elevated myocardial infarction) I21.4 Acute respiratory distress R06.03
[2024-06-22 14:04] LABS: Methicillin-Resist S.aureu PCR NOT DETECTED (NOT DETECTED)
[2024-06-22 14:54] LABS: Anion Gap 16.8 (5-19); Blood Urea Nitrogen 23 mg/dL (8-23); Calcium 8.9 mg/dL (8.5-10.5); Carbon Dioxide 24 mmol/L (22-29); Chloride 103 mmol/L (98-107); Glucose 169 mg/dL (65-115); Osmolality Calculated 298 mOsm/kg (285-295); Potassium 3.8 mmol/L (3.5-5.1); Sodium 140 mmol/L (136-145)
[2024-06-22 18:05] LABS: Glucose Point of Care 188 mg/dL (70-110)
[2024-06-22] MEDS: enoxaparin 40 mg/0.4 mL Syringe SUBCUT (21:31)
[2024-06-22] MEDS: azithromycin 500 MG in sodium chloride 0.9% 250 ML 250 MG IV (21:31)
[2024-06-22 22:21] LABS: Glucose Point of Care 176 mg/dL (70-110)
[2024-06-22 22:43] LABS: Vancomycin Trough 18.5 ug/mL (10-15)
[2024-06-23] VITALS (58 sets, daily range): BP systolic 93–154; BP diastolic 65–106; PULSE 64–96; RESP 12–33; TEMP 36.3–36.9; O2SAT 87–95
[2024-06-23 04:14] LABS: Basophils % 0.3 %; Hematocrit 39.9 % (36-47); Lymphocytes % 9.3 %; Mean Corpuscular HGB Conc 29.6 g/dL (30-55); Mean Corpuscular Hemoglobin 26.9 pg (27-33); Mean Corpuscular Volume 90.9 fl (85-98); Mean Platelet Volume 12.3 fL (7.4-10.4); Monocytes # 0.4 10^3/uL (0.2-0.9); Monocytes % 3.4 %; Nucleated Red Blood Cells % 0 %; Platelet Count 199 10^3/cmm (157-399); Red Blood Count 4.39 10^6/uL (3.85-5.65); Red Cell Distribution Width 17.4 % (12.1-15.1); White Blood Count 10.58 10^3/uL (3.29-11.43)
[2024-06-23] MEDS: morphine 4 mg/mL SDV 1 mL 2 MG IVP ×4 (04:24→22:20)
[2024-06-23 04:44] LABS: Blood Urea Nitrogen 26 mg/dL (8-23); Calcium 8.1 mg/dL (8.5-10.5); Carbon Dioxide 19 mmol/L (22-29); Chloride 106 mmol/L (98-107); Glucose 160 mg/dL (65-115); Magnesium 2.2 mg/dL (1.7-2.3); Osmolality Calculated 292 mOsm/kg (285-295); Sodium 137 mmol/L (136-145)
[2024-06-23] MEDS: ipratropium-albuterol 3 mL Neb INHALATION ×5 (04:47→23:53)
[2024-06-23 07:11] LABS: Glucose Point of Care 151 mg/dL (70-110)
[2024-06-23] MEDS: budesonide 0.5 mg/2 mL Neb INHALATION ×2 (08:12→21:10)
[2024-06-23] MEDS: insulin lispro 100 unit/1 mL SUBCUT ×3 (08:54→18:23)
[2024-06-23] MEDS: atorvastatin 40 mg Tablet 80 MG PO (08:55)
[2024-06-23] MEDS: cefepime 1,000 mg SDV 1000 MG IV (08:55)
[2024-06-23] MEDS: aspirin 81 mg EC Tablet PO (08:55)
[2024-06-23] MEDS: levothyroxine 100 mcg Tablet PO (08:55)
[2024-06-23] MEDS: methylPREDNISolone sod succ 40 mg/mL INJ 60 MG IVP ×2 (10:25→17:13)
[2024-06-23] MEDS: FUROsemide 10 mg/mL SDV 4mL 40 MG IVP ×2 (10:26→21:50)
[2024-06-23] MEDS: pantoprazole 40 mg SDV IVP ×2 (10:26→22:20)
[2024-06-23 11:34] LABS: Glucose Point of Care 152 mg/dL (70-110)
--- NOTE | 2024-06-23 11:35 | P.PN_ITS ---
Subjective 2 Subjective: Seen this morning. Patient is on 12 L of nasal cannula. She is 4 L positive since admission. Reviewed pulmonology note by Dr. Bui. Patient has reduced DLCO. She has asthma COPD overlap syndrome. She states she feels puffy as well. Vitals/I&O/Wt Last Vital Signs Temp 97.6 F 06/23/24 04:00 Pulse 79 06/23/24 10:30 Resp 15 06/23/24 10:30 BP 133/106 06/23/24 07:30 Pulse Ox 91 06/23/24 10:30 O2 Del Method High Flow Nasal Cannula 06/23/24 10:30 O2 Flow Rate 10 06/23/24 10:30 FiO2 50 06/23/24 04:00 06/22/24 06/23/24 06/23/24 22:59 06:59 14:59 Intake Total 610 / 1450 740 / 2190 240 / 240 Output Total 600 / 3000 850 / 850 Balance 610 / -950 140 / -810 -610 / -610 Weight last 48 hrs Weight 99.5 kg Weight 100 kg Physical Exam 2 Narrative: General: Patient is awake alert and oriented x3, on 12L NC Head: Normocephalic. Atraumatic. EOM intact. Cardiovascular: Rhythm regular. No gallops. No murmurs. Lungs: clear to auscultation b/l, significant improvement than prior day however does have occasional rhonchi at bilateral bases Abdomen: Normal bowel sounds, abdomen soft and nontender. Genito Urinary: Walker catheter. Extremities: No cyanosis or clubbing. Musculoskeletal: No swollen or erythematous joints. Neurological: Moves all 4 extremities. No myoclonus. Urinary Catheter Management: Walker: Cath Placed During This Visit: yes Reason for Continuing Indwelling Catheter: Accurate Measurement of Urinary Output in Critically Ill Patients Urinary Catheter Date of Insertion: 06/19/24 Urinary Catheter Time of Insertion: 23:00 Data 06/23/24 03:45 06/23/24 03:45 Micro: Microbiology 06/19/24 23:25 Gram Stain - Final Sputum - Expectorated Sputum Sputum Culture - Final 06/20/24 17:30 Gram Stain - Final Sputum - Expectorated Sputum Sputum Culture - Final A&P Assessment and plan (1) Acute hypoxic respiratory failure: (2) Sepsis: (3) Pneumonia: (4) Right-sided chest wall pain: (5) Acute kidney injury: (6) Severe persistent asthma: Qualifiers: Asthma complication type: uncomplicated Qualified Code(s): J45.50 - Severe persistent asthma, uncomplicated (7) Asthma with acute exacerbation: (8) NSTEMI (non-ST elevated myocardial infarction): (9) Acute respiratory distress: Plan Septic shock -Source multifocal community-acquired pneumonia -Patient has received greater than 30 mL/kg body weight IV fluid bolus -Start Levophed for MAP goal of 65 mmHg -N.p.o. until vasopressor requirements stabilized -Follow cultures -Continue vancomycin -Screen for MRSA -Continue cefepime -Continue azithromycin for atypical coverage -N.p.o. until vasopressor requirements stabilized Acute on chronic hypoxic respiratory failure 2/2 multifocal pneumonia and asthma exacerbation Acute hypercapnic respiratory failure -Imaging reviewed -Requiring noninvasive mechanical ventilation Acute asthma exacerbation History of severe persistent asthma -Continue Solu-Medrol -Continue Pulmicort -Scheduled DuoNebs -Treat underlying pneumonia Acute myocardial injury secondary to respiratory distress -Troponin down trended -EKG reviewed -Discontinue heparin History of heart failure -Patient unaware of ejection fraction -Obtain echocardiogram -Strict I's and O's -Daily weights Acute kidney injury -Suspected prerenal in the setting of sepsis -Management as above DVT prophylaxis: Lovenox CODE STATUS: Full code 06/23 Continue cefepime, azithromycin at this time Continue vancomycin Follow cultures Will escalate Solu-Medrol to 60 every 8 hours Placed on Lasix 40 IV twice daily. Will diurese patient. Continue Solu-Medrol, Pulmicort, scheduled DuoNebs Echocardiogram ordered shows: LVEF 70% hyperdynamic. Normal diastolic filling pattern. MUKUL resolved. Urine culture pending at this time. states she has been treated for tb before will check for tb with gold quantiferon although suspicion low at this time currently on 12L NC Continue to manage patient in ICU. Check chest x-ray in AM. Attestations 2 Medical Necessity Statement*: continue ICU stay due to high O2 requirement Diagnoses Acute hypoxic respiratory failure J96.01 Sepsis A41.9 Pneumonia J18.9 Right-sided chest wall pain R07.89 Acute kidney injury N17.9 Severe persistent asthma without complication J45.50 Asthma complication type: uncomplicated Asthma with acute exacerbation J45.901 NSTEMI (non-ST elevated myocardial infarction) I21.4 Acute respiratory distress R06.03
--- NOTE | 2024-06-23 12:38 | PC.SOCIAL ---
IMM Updated Updated pt on IMM. No questions voiced. Provided pt a copy. Initialed, dated, & timed copy in chart.
--- NOTE | 2024-06-23 14:03 | CTR_ITS ---
PROCEDURE INFORMATION: Exam: CTA Chest With Contrast Exam date and time: 06/23/2024 9:32 PM Age: 74 years old Clinical indication: Abdominal pain; Angina pectoris; Prior surgery; Surgery date: 6+ months; Surgery type: Hyst, appy, gb; Additional info: Abdominal pain, rule out pe in chest as well. TECHNIQUE: Imaging protocol: Computed tomographic angiography of the chest with contrast. Exam focused on the arteries. 3D rendering (Not supervised by radiologist): MIP and/or 3D reconstructed images were created by the technologist. Radiation optimization: All CT scans at this facility use at least one of these dose optimization techniques: automated exposure control; mA and/or kV adjustment per patient size (includes targeted exams where dose is matched to clinical indication); or iterative reconstruction. Contrast material: OMNI 350; Contrast volume: 100 ml; Contrast route: INTRAVENOUS (IV); COMPARISON: CT chest wo con [id number] 06/19/2024 9:14 PM RADIATION DOSE METRICS: Total DLP (mGy-cm): 486 FINDINGS: Pulmonary arteries: Normal. No pulmonary emboli. Aorta: Unremarkable. No aortic aneurysm. No aortic dissection. Lungs: Emphysematous changes. Patchy bilateral largely lower lung field ajuy-oahuuym-lcei-right airspace infiltrates. Pleural spaces: Trace left pleural effusion. Heart: Unremarkable. No cardiomegaly. No pericardial effusion. Coronary arteries: Coronary artery atherosclerotic calcifications. Lymph nodes: Unremarkable. No enlarged lymph nodes. Bones/joints: L1 vertebral body chronic appearing compression deformity without retropulsion of bony fragments. Soft tissues: Unremarkable. COMMENTS: The presence of pulmonary emphysema on CT is an independent risk factor for lung cancer. In the absence of a history or active diagnosis of lung cancer, it is recommended that this patient with emphysema be evaluated for enrollment in a low dose CT lung cancer screening program. PROCEDURE INFORMATION: Exam: CT Abdomen And Pelvis With Contrast Exam date and time: 06/23/2024 9:32 PM Age: 74 years old Clinical indication: Abdominal pain; Angina pectoris; Prior surgery; Surgery date: 6+ months; Surgery type: Hyst, appy, gb; Additional info: Abdominal pain, rule out pe in chest as well. TECHNIQUE: Imaging protocol: Computed tomography of the abdomen and pelvis with contrast. Radiation optimization: All CT scans at this facility use at least one of these dose optimization techniques: automated exposure control; mA and/or kV adjustment per patient size (includes targeted exams where dose is matched to clinical indication); or iterative reconstruction. Contrast material: OMNI 350; Contrast volume: 100 ml; Contrast route: INTRAVENOUS (IV); COM[place]ISON: [place] [id number] 06/17/2024 11:36 PM RADIATION DOSE METRICS: Total DLP (mGy-cm): 1029 FINDINGS: Liver: Hepatic steatosis. Gallbladder and biliary ducts: Cholecystectomy. Pancreas: Normal. No ductal dilation. Spleen: Normal. No splenomegaly. Adrenal glands: Normal. No mass. Kidneys and ureters: Bilateral renal cysts, negative for follow-up advised. Stomach and bowel: Diverticulosis without diverticulitis. Appendix: No evidence of appendicitis. Intraperitoneal space: Unremarkable. No free air. No significant fluid collection. Vasculature: Unremarkable. No abdominal aortic aneurysm. Lymph nodes: Unremarkable. No enlarged lymph nodes. Urinary bladder: Walker catheter in the urinary bladder with air presumed iatrogenic. Reproductive: Unremarkable as visualized. Bones/joints: Compression deformities of L1, L2, L3 and L4, appear chronic without retropulsion of bony fragments. Right iliac wing 12 mm sclerotic bony lesion may reflect a benign bone island, whole-body nuclear medicine bone scan could further characterize this. Soft tissues: Left lower abdominal wall subcutaneous pocket of air, likely related to an injection. CT/CT angio chest w abd pel w con IMPRESSION: 1. Negative for pulmonary embolus. 2. Emphysematous changes. 3. Patchy bilateral largely lower lung field kcei-olwllyx-wbyf-right airspace infiltrates. 4. Trace left pleural effusion. 5. L1 vertebral body chronic appearing compression deformity without retropulsion of bony fragments. 6. Coronary artery atherosclerotic calcifications. IMPRESSION: 1. Negative for a focal acute inflammatory process in the abdomen or pelvis 2. Cholecystectomy. 3. Bilateral renal cysts, negative for follow-up advised. 4. Diverticulosis without diverticulitis. 5. Left lower abdominal wall subcutaneous pocket of air, likely related to an injection. 6. Walker catheter in the urinary bladder with air presumed iatrogenic. 7. Compression deformities of L1, L2, L3 and L4, appear chronic without retropulsion of bony fragments. 8. Hepatic steatosis. 9. Right iliac wing 12 mm sclerotic bony lesion may reflect a benign bone island, whole-body nuclear medicine bone scan could further characterize this. COMMENTS: Consistent with the [employer]'s Incidental Findings Committee white paper (J Am Heriberto Radiol 2018): Any incidental renal lesion less than 1 cm or classified as too small to characterize, or any incidental cystic renal lesion characterized as simple-appearing, is likely benign. No follow-up imaging is recommended for these lesions per consensus recommendations based on imaging criteria.
[2024-06-23] MEDS: vancomycin 1,250 MG/250 ML PIGGYBACK 166 MG IV (17:13)
[2024-06-23 17:32] LABS: Glucose Point of Care 174 mg/dL (70-110)
[2024-06-23 20:24] LABS: Glucose Point of Care 163 mg/dL (70-110)
[2024-06-23] MEDS: enoxaparin 40 mg/0.4 mL Syringe SUBCUT (20:45)
[2024-06-23] MEDS: azithromycin 500 MG in sodium chloride 0.9% 250 ML 250 MG IV (20:46)
[2024-06-23] MEDS: iohexol 350 mg/mL 500 mL Btl (per mL) IV (21:35)
[2024-06-24] VITALS (57 sets, daily range): BP systolic 113–148; BP diastolic 61–95; PULSE 60–90; RESP 12–27; TEMP 36.9; O2SAT 87–93
[2024-06-24] MEDS: methylPREDNISolone sod succ 40 mg/mL INJ 60 MG IVP ×3 (01:56→17:55)
[2024-06-24] MEDS: ipratropium-albuterol 3 mL Neb INHALATION ×6 (03:51→22:59)
[2024-06-24 04:04] LABS: Basophils # 0.1 10^3/uL (0.0-0.1); Basophils % 0.4 %; Hematocrit 41.5 % (36-47); Lymphocytes # 1.3 10^3/uL (0.8-4.8); Lymphocytes % 11.5 %; Mean Corpuscular HGB Conc 31.6 g/dL (30-55); Mean Corpuscular Volume 85.6 fl (85-98); Mean Platelet Volume 12.4 fL (7.4-10.4); Monocytes # 0.6 10^3/uL (0.2-0.9); Monocytes % 5.3 %; Neutrophils # 9.03 10^3/uL (1.8-7.7); Neutrophils % 80.7 %; Nucleated Red Blood Cells % 0 %; Platelet Count 260 10^3/cmm (157-399); Red Blood Count 4.85 10^6/uL (3.85-5.65); Red Cell Distribution Width 17.2 % (12.1-15.1); White Blood Count 11.19 10^3/uL (3.29-11.43)
[2024-06-24 04:27] LABS: Anion Gap 12.9 (5-19); Blood Urea Nitrogen 29 mg/dL (8-23); Calcium 8.3 mg/dL (8.5-10.5); Carbon Dioxide 31 mmol/L (22-29); Chloride 99 mmol/L (98-107); Creatinine Clr Calc Pharmacy 54.1658; Glucose 162 mg/dL (65-115); Magnesium 1.9 mg/dL (1.7-2.3); Osmolality Calculated 297 mOsm/kg (285-295); Potassium 3.9 mmol/L (3.5-5.1); Sodium 139 mmol/L (136-145)
[2024-06-24] MEDS: budesonide 0.5 mg/2 mL Neb INHALATION ×2 (07:48→20:11)
[2024-06-24 07:55] LABS: Glucose Point of Care 174 mg/dL (70-110)
[2024-06-24] MEDS: insulin lispro 100 unit/1 mL SUBCUT ×3 (08:37→17:55)
[2024-06-24] MEDS: aspirin 81 mg EC Tablet PO (08:37)
[2024-06-24] MEDS: cefepime 1,000 mg SDV 1000 MG IV (08:37)
[2024-06-24] MEDS: levothyroxine 100 mcg Tablet PO (08:37)
[2024-06-24] MEDS: atorvastatin 40 mg Tablet 80 MG PO (08:37)
[2024-06-24] MEDS: azithromycin 250 mg Tablet 500 MG PO (08:37)
[2024-06-24] MEDS: FUROsemide 10 mg/mL SDV 4mL 40 MG IVP ×2 (09:02→21:57)
[2024-06-24] MEDS: pantoprazole 40 mg SDV IVP ×2 (10:17→21:56)
--- NOTE | 2024-06-24 10:37 | P.PN_ITS ---
Subjective 2 Subjective: Seen this morning. 3 L urine output overnight. On 8 L nasal cannula this morning feeling slightly better. Vitals/I&O/Wt Last Vital Signs Temp 97.6 F 06/25/24 05:19 Pulse 82 06/25/24 12:00 Resp 19 H 06/25/24 12:00 BP 156/94 06/25/24 12:00 Pulse Ox 91 06/25/24 12:00 O2 Del Method High Flow Nasal Cannula 06/25/24 12:00 O2 Flow Rate 9 06/25/24 11:35 FiO2 40 06/25/24 04:32 06/24/24 06/25/24 06/25/24 22:59 06:59 14:59 Intake Total 500 / 740 Output Total 300 / 1750 1850 / 3600 Balance 200 / -1010 -1850 / -2860 Weight last 48 hrs Weight 95.708 kg Weight 96 kg Physical Exam 2 Narrative: General: Patient is awake alert and oriented x3, on 10L NC Head: Normocephalic. Atraumatic. EOM intact. Cardiovascular: Rhythm regular. No gallops. No murmurs. Lungs: clear to auscultation b/l, occasional rhonchi at bases. Abdomen: Normal bowel sounds, abdomen soft and nontender. Genito Urinary: Walker catheter in place Extremities: No cyanosis or clubbing. Musculoskeletal: No swollen or erythematous joints. Neurological: Moves all 4 extremities. No myoclonus. Urinary Catheter Management: Walker: Cath Placed During This Visit: yes Reason for Continuing Indwelling Catheter: Other Urinary Catheter Date of Insertion: 06/19/24 Urinary Catheter Time of Insertion: 23:00 Data 06/25/24 09:05 06/25/24 09:05 Micro: Microbiology 06/23/24 12:18 Gram Stain - Final Sputum - Expectorated Sputum Sputum Culture - Final 06/19/24 19:27 Blood Culture - Final Blood NO GROWTH AFTER 5 DAYS 06/19/24 19:17 Blood Culture - Final Blood NO GROWTH AFTER 5 DAYS A&P Assessment and plan (1) Acute hypoxic respiratory failure: (2) Sepsis: (3) Pneumonia: (4) Right-sided chest wall pain: (5) Acute kidney injury: (6) Severe persistent asthma: Qualifiers: Asthma complication type: uncomplicated Qualified Code(s): J45.50 - Severe persistent asthma, uncomplicated (7) Asthma with acute exacerbation: (8) NSTEMI (non-ST elevated myocardial infarction): (9) Acute respiratory distress: Plan Septic shock -Source multifocal community-acquired pneumonia -Patient has received greater than 30 mL/kg body weight IV fluid bolus -Start Levophed for MAP goal of 65 mmHg -N.p.o. until vasopressor requirements stabilized -Follow cultures -Continue vancomycin -Screen for MRSA -Continue cefepime -Continue azithromycin for atypical coverage -N.p.o. until vasopressor requirements stabilized Acute on chronic hypoxic respiratory failure 2/2 multifocal pneumonia and asthma exacerbation Acute hypercapnic respiratory failure -Imaging reviewed -Requiring noninvasive mechanical ventilation Acute asthma exacerbation History of severe persistent asthma -Continue Solu-Medrol -Continue Pulmicort -Scheduled DuoNebs -Treat underlying pneumonia Acute myocardial injury secondary to respiratory distress -Troponin down trended -EKG reviewed -Discontinue heparin History of heart failure -Patient unaware of ejection fraction -Obtain echocardiogram -Strict I's and O's -Daily weights Acute kidney injury -Suspected prerenal in the setting of sepsis -Management as above DVT prophylaxis: Lovenox CODE STATUS: Full code 06/24 Continue cefepime, azithromycin at this time Continue vancomycin Follow cultures Continue Solu-Medrol 60 every 8 hours Continue IV Lasix today to diurese patient. Continue Solu-Medrol, Pulmicort, scheduled DuoNebs Echocardiogram ordered shows: LVEF 70% hyperdynamic. Normal diastolic filling pattern. MUKUL resolved. Urine culture pending at this time. TB is negative. Patient slightly improving. Down to 8 L. Continue to manage patient in ICU. Will check respiratory viral panel. Updated patient and her at bedside. Attestations 2 Medical Necessity Statement*: Continue to hospitalize in ICU Diagnoses Acute hypoxic respiratory failure J96.01 Sepsis A41.9 Pneumonia J18.9 Right-sided chest wall pain R07.89 Acute kidney injury N17.9 Severe persistent asthma without complication J45.50 Asthma complication type: uncomplicated Asthma with acute exacerbation J45.901 NSTEMI (non-ST elevated myocardial infarction) I21.4 Acute respiratory distress R06.03
[2024-06-24] MEDS: vancomycin 1,250 MG/250 ML PIGGYBACK 166 MG IV (10:39)
[2024-06-24 11:17] LABS: Adenovirus Not Detected (NOT DETECT); Chlamydia Pneumoniae Not Detected (NOT DETECT); Coronavirus 229E,HKU1,NL63,OC4 Not Detected (NOT DETECT); Human Metapneumovirus Not Detected (NOT DETECT); Human Rhinovirus/Enterovirus Not Detected (NOT DETECT); Influenza A Not Detected (NOT DETECT); Influenza A H1 Not Detected (NOT DETECT); Influenza A H1-2009 Not Detected (NOT DETECT); Influenza A H3 Not Detected (NOT DETECT); Influenza B Not Detected (NOT DETECT); Mycoplasma Pneumoniae Not Detected (NOT DETECT); Parainfluenza Virus Type 1 Not Detected (NOT DETECT); Parainfluenza Virus Type 2 Not Detected (NOT DETECT); Parainfluenza Virus Type 3 Not Detected (NOT DETECT); Parainfluenza Virus Type 4 Not Detected (NOT DETECT); Respiratory Syncytial Virus A Not Detected (NOT DETECT); Respiratory Syncytial Virus B Not Detected (NOT DETECT); SARS-COV-2 Not Detected (NOT DETECT)
[2024-06-24 11:28] LABS: Quantiferon Mitogen >10.00 IU/mL; Quantiferon Nil 0.01 IU/mL; Quantiferon Plus TB1 0.01 IU/mL; Quantiferon Plus TB2 0.01 IU/mL; Quantiferon TB Gold NEGATIVE (NEGATIVE)
[2024-06-24 11:30] LABS: Glucose Point of Care 148 mg/dL (70-110)
[2024-06-24] MEDS: lidocaine 5% Patch 1 PATCH TOPICAL ×2 (13:00→20:03)
[2024-06-24] MEDS: morphine IR 15 mg Tablet 7.5 MG PO (16:07)
[2024-06-24 17:24] LABS: Glucose Point of Care 147 mg/dL (70-110)
[2024-06-24] MEDS: enoxaparin 40 mg/0.4 mL Syringe SUBCUT (20:02)
[2024-06-24 21:30] LABS: Glucose Point of Care 156 mg/dL (70-110)
[2024-06-25] VITALS (55 sets, daily range): BP systolic 116–157; BP diastolic 65–107; PULSE 60–103; RESP 13–25; TEMP 36.4–37.2; O2SAT 86–94; BMI 39.9
[2024-06-25] MEDS: morphine IR 15 mg Tablet 7.5 MG PO ×2 (00:07→10:38)
[2024-06-25] MEDS: methylPREDNISolone sod succ 40 mg/mL INJ 60 MG IVP ×3 (01:48→17:16)
[2024-06-25] MEDS: ipratropium-albuterol 3 mL Neb INHALATION ×5 (04:32→20:09)
[2024-06-25] MEDS: vancomycin 1,250 MG/250 ML PIGGYBACK 166 MG IV (05:02)
[2024-06-25 06:34] LABS: Glucose Point of Care 144 mg/dL (70-110)
[2024-06-25] MEDS: budesonide 0.5 mg/2 mL Neb INHALATION ×2 (08:17→20:09)
[2024-06-25 09:15] LABS: Basophils # 0.1 10^3/uL (0.0-0.1); Basophils % 0.3 %; Hematocrit 45.6 % (36-47); Lymphocytes # 1.4 10^3/uL (0.8-4.8); Lymphocytes % 9.2 %; Mean Corpuscular HGB Conc 32.5 g/dL (30-55); Mean Corpuscular Hemoglobin 27.3 pg (27-33); Mean Corpuscular Volume 84.1 fl (85-98); Mean Platelet Volume 11.9 fL (7.4-10.4); Monocytes # 0.9 10^3/uL (0.2-0.9); Monocytes % 5.9 %; Neutrophils # 12.36 10^3/uL (1.8-7.7); Neutrophils % 81.9 %; Nucleated Red Blood Cells % 0 %; Platelet Count 289 10^3/cmm (157-399); Red Blood Count 5.42 10^6/uL (3.85-5.65); Red Cell Distribution Width 16.9 % (12.1-15.1)
[2024-06-25] MEDS: insulin lispro 100 unit/1 mL SUBCUT ×3 (09:18→18:15)
[2024-06-25] MEDS: aspirin 81 mg EC Tablet PO (09:18)
[2024-06-25] MEDS: atorvastatin 40 mg Tablet 80 MG PO (09:18)
[2024-06-25] MEDS: azithromycin 250 mg Tablet 500 MG PO (09:19)
[2024-06-25] MEDS: levothyroxine 100 mcg Tablet PO (09:19)
[2024-06-25 09:36] LABS: Anion Gap 15.7 (5-19); Blood Urea Nitrogen 31 mg/dL (8-23); Calcium 8.6 mg/dL (8.5-10.5); Carbon Dioxide 32 mmol/L (22-29); Chloride 97 mmol/L (98-107); Creatinine Clr Calc Pharmacy 58.8511; Glucose 155 mg/dL (65-115); Osmolality Calculated 302 mOsm/kg (285-295); Potassium 3.7 mmol/L (3.5-5.1); Sodium 141 mmol/L (136-145)
[2024-06-25] MEDS: cefepime 1,000 mg SDV 1000 MG IV (09:37)
--- NOTE | 2024-06-25 09:59 | PC.NURSE ---
Patient had capillary refills that were longer than 3 seconds and showed signs of dehydration. Dr. Bravo ordered to hold lasix this morning.
[2024-06-25] MEDS: pantoprazole 40 mg SDV IVP (10:39)
--- NOTE | 2024-06-25 12:40 | P.PN_ITS ---
Subjective 2 Subjective: Seen patient this morning. Subjectively she says she feels slightly better however is on 10 L of high flow nasal cannula at this time. Sputum culture has not shown growth so far. 2 L negative since admission. Vitals/I&O/Wt Last Vital Signs Temp 98.4 F 06/23/24 20:00 Pulse 78 06/24/24 15:00 Resp 20 H 06/24/24 15:00 BP 142/94 06/24/24 13:00 Pulse Ox 92 06/24/24 15:00 O2 Del Method High Flow Nasal Cannula 06/24/24 15:00 O2 Flow Rate 8 06/24/24 15:00 FiO2 60 06/24/24 03:51 06/24/24 06/24/24 06/24/24 06:59 14:59 22:59 Intake Total 120 / 850 240 / 240 Output Total 2300 / 5050 1450 / 1450 Balance -2180 / -4200 -1210 / -1210 Weight last 48 hrs Weight 96 kg Weight 99.5 kg Physical Exam 2 Narrative: General: Patient is awake alert and oriented x3, on 10L NC Head: Normocephalic. Atraumatic. EOM intact. Cardiovascular: Rhythm regular. No gallops. No murmurs. Lungs: clear to auscultation b/l, occasional rhonchi at bases. Abdomen: Normal bowel sounds, abdomen soft and nontender. Genito Urinary: Walker catheter in place Extremities: No cyanosis or clubbing. Musculoskeletal: No swollen or erythematous joints. Neurological: Moves all 4 extremities. No myoclonus. Urinary Catheter Management: Walker: Cath Placed During This Visit: yes Reason for Continuing Indwelling Catheter: Accurate Measurement of Urinary Output in Critically Ill Patients Urinary Catheter Date of Insertion: 06/19/24 Urinary Catheter Time of Insertion: 23:00 Data 06/25/24 09:05 06/25/24 09:05 Micro: Microbiology 06/23/24 12:18 Gram Stain - Final Sputum - Expectorated Sputum Sputum Culture - Preliminary A&P Assessment and plan (1) Acute hypoxic respiratory failure: (2) Sepsis: (3) Pneumonia: (4) Right-sided chest wall pain: (5) Acute kidney injury: (6) Severe persistent asthma: Qualifiers: Asthma complication type: uncomplicated Qualified Code(s): J45.50 - Severe persistent asthma, uncomplicated (7) Asthma with acute exacerbation: (8) NSTEMI (non-ST elevated myocardial infarction): (9) Acute respiratory distress: Plan Septic shock -Source multifocal community-acquired pneumonia -Patient has received greater than 30 mL/kg body weight IV fluid bolus -Start Levophed for MAP goal of 65 mmHg -N.p.o. until vasopressor requirements stabilized -Follow cultures -Continue vancomycin -Screen for MRSA -Continue cefepime -Continue azithromycin for atypical coverage -N.p.o. until vasopressor requirements stabilized Acute on chronic hypoxic respiratory failure 2/2 multifocal pneumonia and asthma exacerbation Acute hypercapnic respiratory failure -Imaging reviewed -Requiring noninvasive mechanical ventilation Acute asthma exacerbation History of severe persistent asthma -Continue Solu-Medrol -Continue Pulmicort -Scheduled DuoNebs -Treat underlying pneumonia Acute myocardial injury secondary to respiratory distress -Troponin down trended -EKG reviewed -Discontinue heparin History of heart failure -Patient unaware of ejection fraction -Obtain echocardiogram -Strict I's and O's -Daily weights Acute kidney injury -Suspected prerenal in the setting of sepsis -Management as above DVT prophylaxis: Lovenox CODE STATUS: Full code 06/25 Continue cefepime, azithromycin at this time Continue vancomycin Follow cultures Continue Solu-Medrol 60 every 8 hours She has received 2 doses of IV Lasix in the last 48 hours. Will hold off on more Lasix today. She is 2 L negative since admission. Placed on Lasix 40 IV twice daily. Will diurese patient. Continue Solu-Medrol, Pulmicort, scheduled DuoNebs Echocardiogram ordered shows: LVEF 70% hyperdynamic. Normal diastolic filling pattern. MUKUL resolved. Urine culture pending at this time. TB is negative. Continues to require 10 L nasal cannula. Continue to manage patient in ICU. Respiratory viral panel negative. Patient perhaps needs bronchoscopy and a pulmonology consultation at this time. Both of which we do not have access to at this time. Discussed with her regarding transfer to higher level of care which she agrees to. I will reach out to [facility] in [facility] and discussed with pulmonology. Patient may possibly need LTAC after discharge. Attestations 2 Medical Necessity Statement*: Continue to hospitalize in ICU Diagnoses Acute hypoxic respiratory failure J96.01 Sepsis A41.9 Pneumonia J18.9 Right-sided chest wall pain R07.89 Acute kidney injury N17.9 Severe persistent asthma without complication J45.50 Asthma complication type: uncomplicated Asthma with acute exacerbation J45.901 NSTEMI (non-ST elevated myocardial infarction) I21.4 Acute respiratory distress R06.03
[2024-06-25 13:20] LABS: ABG PCO2 43.2 mmHg (35-45); ABG PH Result 7.47 (7.35-7.45); Arterial Blood Gas Hematocrit 46.8 % (37-47); Base Excess ABG 6.6 mmol/L (-2.0-2.0); Blood Gas Allen Test Pos; Blood Gas Operator Identificat GD; Blood Gas Sample Site Radial, right; Blood Gas Sample Type Arterial; Carboxyhemoglobin 0.9 %THgb (0.4-20.1); HCO3 ABG 31.2 mmol/L (22-26); HGB O2 Sat 91.7 % (95-100); Ionized Calcium Level - ABG 1.1 mmol/L (1.1-1.4); Methemoglobin 1.1 % (0.4-1.5); Oxygen Device NC; Oxygen Saturation ABG 93.6; PO2 ABG 64.6 mmHg (80.0-100.0); Potassium Level - ABG 3.6 mmol/L (3.5-5.0); Total Hemoglobin 15.3 g/dL (12-16)
--- NOTE | 2024-06-25 13:36 | PC.SOCIAL ---
IMM updated. Updated pt on IMM. No questions voiced. Provided pt a copy. Initialed, dated, & timed copy in chart.
--- NOTE | 2024-06-25 15:04 | PM.TDS ---
Transfer Summary Providers Date of Admission: 06/19/24 20:46 Date of Discharge/Transfer: 06/25/24 Attending Provider at Admission: Boubacar Maki MD Attending Provider at Transfer: Stacey Bravo MD Primary Care Provider: Dmitriy Martinez MD Transfer Plans: Anticipated date of transfer: 06/25/24. Diagnoses at Discharge Discharge Diagnosis (1) Acute hypoxic respiratory failure: Status: Acute (2) Sepsis: Status: Acute (3) Pneumonia: Status: Acute (4) Right-sided chest wall pain: Status: Acute (5) Acute kidney injury: Status: Acute (6) Severe persistent asthma: Status: Acute Qualifiers: Asthma complication type: uncomplicated Qualified Code(s): J45.50 - Severe persistent asthma, uncomplicated (7) Asthma with acute exacerbation: Status: Acute (8) NSTEMI (non-ST elevated myocardial infarction): Status: Acute (9) Acute respiratory distress: Status: Acute Reason for Visit Reason for Visit Lower O2, Low BP Brief History: As per Admitting doctor: Perlita Melton is a 74 year old female with a past medical history of asthma, emphysema, morbid obesity, hyperlipidemia, diabetes, who presents [facility] due to shortness of breath, cough. Patient was here had [facility], 2 days ago for a fall, and right rib pain, after she fell on concrete, landing on her right side, her CT imaging at that time had no acute findings, she normally uses 3 L, she was needing up to 5 L during her ER visit, she was sent home with Toradol for pain control. Since going home, she continued to have right rib pain, shortness of breath, cough, relative immobility, reports of fevers, chills, no nausea, no vomiting, her O2 sats were low at home, so she was brought in, in triage her O2 sats were 67% on room air, she required up to 6 L nasal cannula due to persistent hypoxia, she was placed on BiPAP currently she is on 70% FiO2, having tachypnea, tachycardia, nasal flaring, intercostal retractions, moderate respiratory distress, we discussed with at bedside that currently she is in moderate respiratory failure, with evidence of pneumonia on a chest x-ray with evidence of sepsis, she is quite ill, we discussed the morbidity and mortality associated with respiratory failure, pneumonia. Discussed goals of care, she is a full code, we discussed elective intubation if required and she is agreeable. Will watch her in the ICU closely as she is on 70% FiO2 and moderate respiratory distress, she has a high risk of worsening respiratory status, low threshold for intubation, she has received antibiotics in the emergency room, receiving her sepsis bolus, will monitor closely, patient and voiced understanding, all questions answered, agreed to proceed Hospital Course Hospital Course Presented to the hospital for shortness of breath respiratory failure requiring continuous BiPAP. She does have a history of persistent asthma with reduced DLCO. Also had MUKUL on admission. Came in after a fall. Right-sided chest wall pain related to fall highly suspicious for bruised rib contusion. Rib fracture ruled out. She has remained on vancomycin and cefepime azithromycin since hospital admission. Respiratory viral panel negative x 2. TB QuantiFERON test negative. Sputum culture, blood cultures negative to date. Patient is on Solu-Medrol 60 every 8 hours. Has been diuresed adequately and is now -2.5 L. Does have a small left-sided pleural effusion. Patient has persistently required 10 to 12 L high flow nasal cannula over the last few days with little to no improvement despite aggressive diuresis. At this time will require a pulmonology consult with possible bronchoscopy if warranted after consultation. Also had MUKUL on admission which has improved. Creatinine is now back to baseline. White count elevated to 15,000 today most likely secondary to steroid use. PE ruled out with CT angio. Echo obtained shows normal diastolic function normal EF. Discussed above plan with patient in detail she and her family are agreeable with transfer to higher level of care at this time. We will be transferring to higher level of care to [facility]. Discussed with pulmonology service will be happy to consult on the case. Patient to be admitted to hospitalist service. Awaiting callback at this time. Physical Exam Narrative: General: Patient is awake alert and oriented x3, on 10L NC Head: Normocephalic. Atraumatic. EOM intact. Cardiovascular: Rhythm regular. No gallops. No murmurs. Lungs: clear to auscultation b/l, occasional rhonchi at bases. Abdomen: Normal bowel sounds, abdomen soft and nontender. Genito Urinary: Walker catheter in place Extremities: No cyanosis or clubbing. Musculoskeletal: No swollen or erythematous joints. Neurological: Moves all 4 extremities. No myoclonus. Urinary Catheter Management: Walker: Cath Placed During This Visit: yes Reason for Continuing Indwelling Catheter: Other Urinary Catheter Date of Insertion: 06/19/24 Urinary Catheter Time of Insertion: 23:00 TS Data Studies Completed and Pending Completed Studies During Hospitalization Category Date Time Status CT angio chest w abd pel w con Routine Cat Scan 06/23/24 14:[address] chest wo con [id number] Stat Cat Scan 06/19/24 20:45 Completed XR chest 1V portable [id number] Stat Exams 06/19/24 19:04 Completed XR chest 1V portable [id number] Stat Exams 06/22/24 09:47 [place] [id number] Stat Ultrasound 06/20/24 21:00 Completed CV. echo complete* [id number] Routine Ultrasound 06/20/24 13:01 Completed Laboratory Last Values WBC 15.10 10^3/uL (3.29-11.43) H 06/25/24 09:05 RBC 5.42 10^6/uL (3.85-5.65) 06/25/24 09:05 Hgb 14.80 g/dL (11.27-16.99) 06/25/24 09:05 Hct 45.6 % (36-47) 06/25/24 09:05 MCV 84.1 fl (85-98) L 06/25/24 09:05 MCH 27.3 pg (27-33) 06/25/24 09:05 MCHC 32.5 g/dL (30-55) 06/25/24 09:05 RDW 16.9 % (12.1-15.1) H 06/25/24 09:05 Plt Count 289 10^3/cmm (157-399) 06/25/24 09:05 MPV 11.9 fL (7.4-10.4) H 06/25/24 09:05 Neut % (Auto) 81.9 % 06/25/24 09:05 Lymph % (Auto) 9.2 % 06/25/24 09:05 Charles % (Auto) 5.9 % 06/25/24 09:05 Eos % (Auto) 0.0 % 06/25/24 09:05 Baso % (Auto) 0.3 % 06/25/24 09:05 Neut # (Auto) 12.36 10^3/uL (1.8-7.7) H 06/25/24 09:05 Lymph # (Auto) 1.4 10^3/uL (0.8-4.8) 06/25/24 09:05 Charles # (Auto) 0.9 10^3/uL (0.2-0.9) 06/25/24 09:05 Eos # (Auto) 0.0 10^3/uL (0.0-0.8) 06/25/24 09:05 Baso # (Auto) 0.1 10^3/uL (0.0-0.1) 06/25/24 09:05 Nucleated RBC % (auto) 0 % 06/25/24 09:05 Nucleated RBCs # 0.0 /100WBC 06/25/24 09:05 PT 16.10 SECONDS (12.1-14.9) H 06/19/24 16:53 INR 1.25 (0.8-1.2) H 06/19/24 16:53 APTT 48.6 SECONDS (23.9-36.7) H D 06/20/24 09:33 D-Dimer 1.62 ug/mLFEU (0-0.59) H 06/19/24 16:53 Specimen Type Arterial 06/25/24 13:03 Sample Site Radial, right 06/25/24 13:03 ABG pH 7.47 (7.35-7.45) H 06/25/24 13:03 ABG pCO2 43.2 mmHg (35-45) 06/25/24 13:03 ABG pO2 64.6 mmHg (80.0-100.0) L 06/25/24 13:03 ABG HCO3 31.2 mmol/L (22-26) H 06/25/24 13:03 ABG O2 Saturation 93.6 06/25/24 13:03 ABG Base Excess 6.6 mmol/L (-2.0-2.0) H 06/25/24 13:03 Jordan Test Pos 06/25/24 13:03 A-a O2 Gradient 4.0 mmHg (5-10) L 06/25/24 13:03 Hematocrit 46.8 % (37-47) 06/25/24 13:03 Hgb O2 Saturation 91.7 % (95-100) L 06/25/24 13:03 Carboxyhemoglobin 0.9 %THgb (0.4-20.1) 06/25/24 13:03 Methemoglobin 1.1 % (0.4-1.5) 06/25/24 13:03 Total Hemoglobin 15.3 g/dL (12-16) 06/25/24 13:03 Sodium 138.0 mmol/L (131-143) 06/25/24 13:03 Potassium 3.6 mmol/L (3.5-5.0) 06/25/24 13:03 Glucose 212.0 mg/dL (70-115) H 06/25/24 13:03 Ionized Calcium 1.1 mmol/L (1.1-1.4) 06/25/24 13:03 O2 Delivery Device Nc 06/25/24 13:03 O2 Liters/Min 10.0 % 06/25/24 13:03 PEEP 6.0 cmH20 06/19/24 19:47 Electrical Unit Rebuilder ID Gd 06/25/24 13:03 Sodium 141 mmol/L (136-145) 06/25/24 09:05 Potassium 3.7 mmol/L (3.5-5.1) 06/25/24 09:05 Chloride 97 mmol/L (98-107) L 06/25/24 09:05 Carbon Dioxide 32 mmol/L (22-29) H 06/25/24 09:05 Anion Gap 15.7 (5-19) 06/25/24 09:05 BUN 31 mg/dL (8-23) H 06/25/24 09:05 Creatinine 0.9 mg/dL (0.5-0.9) 06/25/24 09:05 GFR Calculation Not Reportable 06/25/24 09:05 Glucose 155 mg/dL (65-115) H 06/25/24 09:05 POC Glucose 144 mg/dL (70-110) H 06/25/24 06:29 Estimat Average Glucose 128 06/19/24 19:17 Hemoglobin A1c 6.1 % (4.0-6.0) H 06/19/24 19:17 Calculated Osmolality 302 mOsm/kg (285-295) H 06/25/24 09:05 Lactic Acid 1.8 mmol/L (0.5-2.2) 06/19/24 19:17 Calcium 8.6 mg/dL (8.5-10.5) 06/25/24 09:05 Phosphorus 2.5 mg/dL (2.5-4.5) 06/21/24 03:13 Magnesium 1.9 mg/dL (1.7-2.3) 06/24/24 03:42 Total Bilirubin 0.3 mg/dL (0.15-1.2) 06/21/24 03:13 AST 9 U/L (0-32) 06/21/24 03:13 ALT 9 U/L (0-33) 06/21/24 03:13 Alkaline Phosphatase 78 U/L (35-105) 06/21/24 03:13 Creatine Kinase 108 U/L (26-192) 06/19/24 16:53 Troponin T Baseline 33 ng/L (0-10) H 06/19/24 19:17 Troponin T 120 Minute 30.26 ng/L (0-10) H 06/19/24 21:01 Delta Troponin T -2.74 ABS# (0-10) L 06/19/24 21:01 Troponin T Hi Sens 6Hr 23.35 ng/L (0-10) H 06/20/24 01:24 Troponin T Hi Sens 6Hr Delta -9.65 ng/L (0-12) L 06/20/24 01:24 C-Reactive Protein 97.0 mg/L (0.0-4.9) H 06/19/24 16:53 NT-Pro-B Natriuret Pep 2524 pg/mL (0-125) H 06/19/24 19:17 Total Protein 5.6 g/dL (6.6-8.7) L 06/21/24 03:13 Albumin 3.3 g/dL (3.5-5.2) L 06/21/24 03:13 Globulin 2.3 g/dL (1.3-4.6) 06/21/24 03:13 Triglycerides 94 mg/dL (0-150) 06/19/24 16:53 Cholesterol 97 mg/dL (0-200) 06/19/24 16:53 LDL Cholesterol, Calc 35 mg/dL (50-129) L 06/19/24 16:53 HDL Cholesterol 43 mg/dL (60-100) L 06/19/24 16:53 LDL/HDL Ratio 0.81 RATIO (0.00-3.22) 06/19/24 16:53 Cholesterol/HDL Ratio 2.26 mg/dL (0.0-4.40) 06/19/24 16:53 Procalcitonin 18.00 ng/mL (0-0.5) H 06/19/24 16:53 TSH 0.67 uIU/mL (0.27-4.20) 06/19/24 16:53 Vancomycin Trough 18.5 ug/mL (10-15) H 06/22/24 22:15 Adenovirus (PCR) Not detected (NOT DETECT) 06/24/24 09:09 C. pneumoniae DNA (PCR) Not detected (NOT DETECT) 06/24/24 09:09 Coronavirus (PCR) Negative (Negative) 06/20/24 18:05 Coronavirus 229E (PCR) Not detected (NOT DETECT) 06/24/24 09:09 Human Metapneumovir PCR Not detected (NOT DETECT) 06/24/24 09:09 Influenza A (H1) PCR Not detected (NOT DETECT) 06/24/24 09:09 Influenza A (PCR) Negative (Negative) 06/20/24 18:05 Influ A (H1/09) PCR Not detected (NOT DETECT) 06/24/24 09:09 Influenza A (H3) PCR Not detected (NOT DETECT) 06/24/24 09:09 Influenza Type A (PCR) Not detected (NOT DETECT) 06/24/24 09:09 Influenza Type B (PCR) Not detected (NOT DETECT) 06/24/24 09:09 M. pneumoniae (PCR) Not detected (NOT DETECT) 06/24/24 09:09 Parainfluenza 1 (PCR) Not detected (NOT DETECT) 06/24/24 09:09 Parainfluenza 2 (PCR) Not detected (NOT DETECT) 06/24/24 09:09 Parainfluenza 3 (PCR) Not detected (NOT DETECT) 06/24/24 09:09 Parainfluenza 4 (PCR) Not detected (NOT DETECT) 06/24/24 09:09 RSV (PCR) Negative (Negative) 06/20/24 18:05 RSV Type A (PCR) Not detected (NOT DETECT) 06/24/24 09:09 RSV Type B (PCR) Not detected (NOT DETECT) 06/24/24 09:09 Entero/Rhino (PCR) Not detected (NOT DETECT) 06/24/24 09:09 SARS-CoV-2 (PCR) Not detected (NOT DETECT) 06/24/24 09:09 MRSA (PCR) Not detected (NOT DETECTED) 06/20/24 21:20 TB (QFT) Gold In Tube Negative (NEGATIVE) 06/22/24 16:09 TB Test (QFT) Nil 0.01 IU/mL 06/22/24 16:09 TB Test (QFT) Mitogen >10.00 IU/mL 06/22/24 16:09 TB Test Mitogen - Nil 0.01 IU/mL 06/22/24 16:09 TB Test TB -Nil 0.01 IU/mL 06/22/24 16:[address] 06/19/24 20:45 IMPRESSION: Dense consolidation within the left lower lobe concerning for pneumonia. Mild consolidation within the right lung base. Scattered ground-glass opacities within left upper and lower lung. Venous Duplex 06/20/24 21:00 IMPRESSION: No evidence of deep vein thrombosis involving the bilateral lower extremities. Chest X-Ray 06/22/24 09:47 IMPRESSION: Rotated position of the chest could obscure the left lower lung abnormalities with the cardiac silhouette. However if significant improvement of the lung abnormalities has occurred in the lung opacities are more likely atelectasis and pulmonary edema. A better positioned chest x-ray is recommended and follow-up. Chest/Abdomen/Pelvis CT 06/23/24 14:03 IMPRESSION: 1. Negative for pulmonary embolus. 2. Emphysematous changes. 3. Patchy bilateral largely lower lung field [id number]-right airspace infiltrates. 4. Trace left pleural effusion. 5. L1 vertebral body chronic appearing compression deformity without retropulsion of bony fragments. 6. Coronary artery atherosclerotic calcifications. IMPRESSION: 1. Negative for a focal acute inflammatory process in the abdomen or pelvis 2. Cholecystectomy. 3. Bilateral renal cysts, negative for follow-up advised. 4. Diverticulosis without diverticulitis. 5. Left lower abdominal wall subcutaneous pocket of air, likely related to an injection. 6. Walker catheter in the urinary bladder with air presumed iatrogenic. 7. Compression deformities of L1, L2, L3 and L4, appear chronic without retropulsion of bony fragments. 8. Hepatic steatosis. 9. Right iliac wing 12 mm sclerotic bony lesion may reflect a benign bone island, whole-body nuclear medicine bone scan could further characterize this. COMMENTS: Consistent with the [employer]'s Incidental Findings Committee white paper (J Am Heriberto Radiol 2018): Any incidental renal lesion less than 1 cm or classified as too small to characterize, or any incidental cystic renal lesion characterized as simple-appearing, is likely benign. No follow-up imaging is recommended for these lesions per consensus recommendations based on imaging criteria. Recent Clincial Data Last Vital Signs Temp 97.6 F 06/25/24 05:19 Pulse 82 06/25/24 12:00 Resp 19 H 06/25/24 12:00 BP 156/94 06/25/24 12:00 Pulse Ox 91 06/25/24 12:00 O2 Del Method High Flow Nasal Cannula 06/25/24 12:00 O2 Flow Rate 9 06/25/24 11:35 FiO2 40 06/25/24 04:32 Vital Signs Temp Pulse Resp BP Pulse Ox O2 Del Method O2 Flow Rate 06/25/24 12:00 82 19 H 156/94 91 High Flow Nasal Cannula 06/25/24 11:47 72 06/25/24 11:35 76 18 91 High Flow Nasal Cannula 9 06/25/24 11:30 87 20 H 156/94 92 06/25/24 11:00 97 17 124/107 91 High Flow Nasal Cannula 06/25/24 10:38 20 H 90 06/25/24 10:30 95 16 124/107 92 06/25/24 10:00 103 H 14 124/107 87 L 06/25/24 09:30 100 18 123/77 92 06/25/24 09:00 85 18 116/71 89 L 06/25/24 08:30 71 19 H 116/71 92 06/25/24 08:17 66 06/25/24 08:00 64 15 129/72 88 L 06/25/24 08:00 64 17 90 High Flow Nasal Cannula 9 06/25/24 07:30 64 25 H 129/72 86 L 06/25/24 07:00 64 17 134/66 88 L 06/25/24 06:30 70 17 134/66 89 L 06/25/24 06:00 68 16 90 06/25/24 05:33 76 06/25/24 05:30 67 21 H 92 06/25/24 05:19 97.6 F 06/25/24 05:00 74 18 126/71 90 06/25/24 04:32 68 18 90 06/25/24 04:32 68 90 494 06/25/24 04:30 60 21 H 126/71 91 06/25/24 04:25 61 20 H 126/71 90 BiPAP 06/25/24 04:00 64 19 H 145/80 90 06/25/24 03:30 65 14 145/80 88 L FiO2 06/25/24 12:00 06/25/24 11:47 06/25/24 11:35 06/25/24 11:30 06/25/24 11:00 06/25/24 10:38 06/25/24 10:30 06/25/24 10:00 06/25/24 09:30 06/25/24 09:00 06/25/24 08:30 06/25/24 08:17 06/25/24 08:00 06/25/24 08:00 06/25/24 07:30 06/25/24 07:00 06/25/24 06:30 06/25/24 06:00 06/25/24 05:33 06/25/24 05:30 06/25/24 05:19 06/25/24 05:00 06/25/24 04:32 40 06/25/24 04:32 40 06/25/24 04:30 06/25/24 04:25 06/25/24 04:00 06/25/24 03:30 Intake & Output/Weight 06/23/24 06/24/24 06/25/24 06/26/24 06:59 06:59 06:59 06:59 Intake Total 2190 / 2190 850 / 850 740 / 740 Output Total 3000 / 3000 5050 / 5050 3600 / 3600 Balance -810 / -810 -4200 / -4200 -2860 / -2860 Weight 99.5 kg 96 kg 95.708 kg Vitals Last Vital Signs Temp 97.6 F 06/25/24 05:19 Pulse 82 06/25/24 12:00 Resp 19 H 06/25/24 12:00 BP 156/94 06/25/24 12:00 Pulse Ox 91 06/25/24 12:00 O2 Del Method High Flow Nasal Cannula 06/25/24 12:00 O2 Flow Rate 9 06/25/24 11:35 FiO2 40 06/25/24 04:32 TS Medications Medications Acetaminophen (Acetaminophen 325 Mg Tablet) 650 mg PO Q6H PRN PRN Reason: Mild/Mod Pain Or Temp >/= 101 Albuterol/Ipratropium (Ipratropium-Albuterol 3 Ml Neb) 3 ml INHALATION Q4H.RESPIRATORY ESTRELLITA Last Admin: 06/25/24 11:42 Dose: 3 ml Aspirin (Aspirin 81 Mg Ec Tablet) 81 mg PO DAILY ESTRELLITA Last Admin: 06/25/24 09:18 Dose: 81 mg Atorvastatin Calcium (Atorvastatin 40 Mg Tablet) 80 mg PO DAILY ESTRELLITA Last Admin: 06/25/24 09:18 Dose: 80 mg Azithromycin (Azithromycin 250 Mg Tablet) 500 mg PO DAILY ESTRELLITA; Protocol Last Admin: 06/25/24 09:19 Dose: 500 mg Budesonide (Budesonide 0.5 Mg/2 Ml Neb) 0.5 mg INHALATION BID.RESPIRATORY ESTRELLITA Last Admin: 06/25/24 08:17 Dose: 0.5 mg Cefepime HCl (Cefepime 1,000 Mg Sdv) 1,000 mg IV Q24H ESTRELLITA; Protocol Last Admin: 06/25/24 09:37 Dose: 1,000 mg Enoxaparin Sodium (Enoxaparin 40 Mg/0.4 Ml Syringe) 40 mg SUBCUT BEDTIME ESTRELLITA Last Admin: 06/24/24 20:02 Dose: 40 mg Furosemide (Furosemide 10 Mg/Ml Sdv 4ml) 40 mg IVP Q12H ESTRELLITA Last Admin: 06/25/24 09:59 Dose: Not Given Glucagon (Glucagon 1 Mg/Ml Kit 1 Ml) 1 mg IM ONCE PRN; Protocol PRN Reason: Adult Acute Hypoglycemia Nursing Prot. Dextrose (D5w) 500 mls @ 0 mls/hr IV ONCE PRN; Protocol PRN Reason: Adult Acute Hypoglycemia Prot Dextrose (D10w) 125 mls @ 750 mls/hr IV PRN PRN; Protocol PRN Reason: Adult Acute Hypoglycemia Nursing Protocol Dextrose (D10w) 250 mls @ 1,000 mls/hr IV PRN PRN; Protocol PRN Reason: Adult Acute Hypoglycemia Nursing Protocol Vancomycin HCl (Vancocin) 1,250 mg in 250 mls @ 166.667 mls/hr IV Q18H [facility] Last Admin: 06/25/24 05:02 Dose: 166 mls/hr Norepinephrine Bitartrate (Levophed) 4 mg in 250 mls @ 0 mls/hr IV .Q0M [facility]; Protocol Last Titration: 06/21/24 02:32 Dose: 0 mcg/min, 0 mls/hr Insulin Human Lispro (Insulin Lispro 100 Unit/1 Ml) 0 unit SUBCUT TIDWM [facility]; Protocol Last Admin: 06/25/24 12:15 Dose: 2 unit Levothyroxine Sodium (Levothyroxine 100 Mcg Tablet) 100 mcg PO DAILY [facility] Last Admin: 06/25/24 09:19 Dose: 100 mcg Lidocaine (Lidocaine 5% Patch) 1 patch TOPICAL [id number] [facility] Last Admin: 06/25/24 10:39 Dose: Not Given Methylprednisolone Sodium Succinate (Methylprednisolone Sod Succ 40 Mg/Ml Inj) 60 mg IVP Q8H [facility] Last Admin: 06/25/24 09:37 Dose: 60 mg Morphine Sulfate (Morphine Ir 15 Mg Tablet) 7.5 mg PO Q8H PRN PRN Reason: SEVERE PAIN Last Admin: 06/25/24 10:38 Dose: 7.5 mg Ondansetron HCl (Ondansetron 2 Mg/Ml Sdv 2 Ml) 4 mg IVP Q8H PRN PRN Reason: vomiting, or N/V if npo Pantoprazole Sodium (Pantoprazole 40 Mg Sdv) 40 mg IVP Q12H [facility] Last Admin: 06/25/24 10:39 Dose: 40 mg Discontinued Medications Albuterol/Ipratropium (Ipratropium-Albuterol 3 Ml Neb) 3 ml INHALATION ONCE ONE Stop: 06/19/24 19:05 Last Admin: 06/19/24 19:19 Dose: 3 ml Budesonide (Budesonide 0.5 Mg/2 Ml Neb) 0.5 mg INHALATION Q12H [facility] Ceftriaxone Sodium (Ceftriaxone 1,000 Mg Sdv) 1,000 mg IVP ONCE ONE; Protocol Stop: 06/19/24 20:16 Last Admin: 06/19/24 20:35 Dose: 1,000 mg Furosemide (Furosemide 10 Mg/Ml Sdv 2ml) 20 mg IVP ONCE ONE Stop: 06/22/24 09:45 Last Admin: 06/22/24 10:29 Dose: 20 mg Furosemide (Furosemide 10 Mg/Ml Sdv 2ml) 20 mg IVP ONCE ONE Stop: 06/22/24 11:12 Last Admin: 06/22/24 11:20 Dose: 20 mg Furosemide (Furosemide 10 Mg/Ml Sdv 4ml) 40 mg IVP ONCE ONE Stop: 06/23/24 09:12 Last Admin: 06/23/24 10:52 Dose: Not Given Heparin Sodium (Porcine) (Heparin 5,000 Unit/Ml Inj 1 Ml) 0 unit IVP PRN PRN; Protocol PRN Reason: Heparin Weight Based Protocol -Subsequent Bolus Heparin Sodium (Porcine) (Heparin 5,000 Unit/Ml Inj 1 Ml) 0 unit IVP ONCE ONE; Protocol Stop: 06/19/24 22:46 Last Admin: 06/19/24 23:51 Dose: 5,300 unit Sodium Chloride (Sodium Chloride 0.9%) 1,000 mls @ 999 mls/hr IV .Q1H1M ONE Stop: 06/19/24 20:04 Last Infusion: 06/19/24 20:18 Dose: Infused Azithromycin 500 mg/ Sodium (Chloride) 250 mls @ 250 mls/hr IV ONCE ONE; Protocol Stop: 06/19/24 21:14 Last Infusion: 06/19/24 21:48 Dose: Infused Sodium Chloride (Sodium Chloride 0.9%) 2,721.54 mls @ 2,721.54 mls/hr 30 ml/kg infuse over 1 hr (2721.54 ml) IV .Q1H ONE Stop: 06/19/24 21:20 Last Infusion: 06/20/24 07:10 Dose: Infused Azithromycin 500 mg/ Sodium (Chloride) 250 mls @ 250 mls/hr IV Q24H ESTRELLITA; Protocol Last Infusion: 06/24/24 19:21 Dose: Infused Heparin Sodium/Sodium Chloride (Heparin Drip) 25,000 unit in 500 mls @ 0 mls/hr IV CONT ESTRELLITA; Protocol Last Titration: 06/20/24 17:08 Dose: 0 unit/kg/hr, 0 mls/hr Vancomycin HCl (Vancocin) 2,000 mg in 400 mls @ 200 mls/hr IV ONCE ONE Stop: 06/20/24 01:29 Last Infusion: 06/20/24 07:10 Dose: Infused Vancomycin HCl (Vancocin) 1,750 mg in 350 mls @ 175 mls/hr IV Q36H ESTRELLITA Sodium Chloride (Sodium Chloride 0.9%) 500 mls @ 999 mls/hr IV .Q31M ESTRELLITA Stop: 06/20/24 08:45 Last Infusion: 06/20/24 10:45 Dose: Infused Albumin Human (Albumin) 25 g in 100 mls @ 60 mls/hr IV ONCE ONE Stop: 06/20/24 12:19 Last Infusion: 06/20/24 15:22 Dose: Infused Sodium Chloride (Sodium Chloride 0.9%) 500 mls @ 999 mls/hr IV .Q31M ONE Stop: 06/20/24 18:37 Last Infusion: 06/21/24 07:03 Dose: Infused Dexmedetomidine/Sodium Chloride (Precedex) 400 mcg in 100 mls @ 0 mls/hr IV .Q0M ESTRELLITA; Protocol Last Titration: 06/21/24 13:51 Dose: 0.1 mcg/kg/hr, 2.56 mls/hr Iohexol (Iohexol 350 Mg/Ml 500 Ml Btl (Per Ml)) 0 ml IV ONCE ONE Stop: 06/23/24 21:36 Last Admin: 06/23/24 21:35 Dose: 100 ml Lorazepam (Lorazepam 2 Mg/Ml Inj 1 Ml) 0.5 mg IVP Q4H PRN PRN Reason: ANXIETY Last Admin: 06/21/24 21:32 Dose: 0.5 mg Methylprednisolone Sodium Succinate (Methylprednisolone Sod Succ 125 Mg/2 Ml Inj) 125 mg IVP ONCE ONE Stop: 06/19/24 22:46 Last Admin: 06/19/24 23:52 Dose: 125 mg Methylprednisolone Sodium Succinate (Methylprednisolone Sod Succ 40 Mg/Ml Inj) 40 mg IVP Q8H ESTRELLITA Last Admin: 06/22/24 08:24 Dose: 40 mg Methylprednisolone Sodium Succinate (Methylprednisolone Sod Succ 40 Mg/Ml Inj) 40 mg IVP Q12H ESTRELLITA Last Admin: 06/22/24 23:56 Dose: 40 mg Morphine Sulfate (Morphine 4 Mg/Ml Sdv 1 Ml) 2 mg IVP Q4H PRN PRN Reason: SEVERE PAIN Last Admin: 06/23/24 22:20 Dose: 2 mg Allergies codeine Allergy (Severe, Verified 06/19/24 19:04) ALGY-Anaphylaxis lisinopril Adverse Reaction (Severe, Verified 06/19/24 19:04) ADR-Cough Home Medications amlodipine 10 mg tablet 10 mg PO DAILY 11/26/19 [History Confirmed 06/21/24] losartan 50 mg tablet 50 mg PO DAILY 11/26/19 [History Confirmed 06/21/24] metoprolol succinate 25 mg tablet,extended release 24 hr 25 mg PO DAILY 11/26/19 [History Confirmed 06/21/24] pantoprazole 40 mg tablet,delayed release 40 mg PO DAILY 11/26/19 [History Confirmed 06/21/24] potassium chloride 10 mEq tablet,extended release(part/cryst) 10 meq PO BID 11/26/19 [History Confirmed 06/21/24] repaglinide 2 mg tablet 2 mg PO TID 11/26/19 [History Confirmed 06/21/24] rosuvastatin 20 mg tablet 20 mg PO DAILY 11/26/19 [History Confirmed 06/21/24] eszopiclone 2 mg tablet 1 mg PO DAILY 01/24/20 [History Confirmed 06/21/24] montelukast 10 mg tablet (Singulair) 10 mg PO DAILY 06/28/20 [History Confirmed 06/21/24] COCK UP SPLINT #1 ea 09/20/20 [Rx Confirmed 06/21/24] azithromycin 500 mg tablet 500 mg PO .every other day copd #15 tabs 07/29/23 [Rx Confirmed 06/21/24] tiotropium bromide 2.5 mcg/actuation mist for inhalation (Spiriva Respimat) 2 puff inhalation DAILY #4 grams 10/31/23 [Rx Confirmed 06/21/24] furosemide 20 mg tablet (Lasix) 20 mg PO DAILY #30 tabs 01/07/24 [Rx Confirmed 06/21/24] amitriptyline 50 mg tablet 100 mg (2 x 50 mg) PO DAILY chronic pain 30 days #60 tabs 03/18/24 [Rx Confirmed 06/21/24] tizanidine 4 mg tablet 4 mg PO BID PRN muscle spasticity #60 tabs 03/18/24 [Rx Confirmed 06/21/24] tramadol 50 mg tablet 50 mg PO TID PRN pain (scale score 7-10) #90 tabs 03/18/24 [Rx Confirmed 06/21/24] albuterol sulfate 2.5 mg/3 mL (0.083 %) solution for nebulization 2.5 mg inhalation QID PRN Shortness Of Breath 06/21/24 [History Confirmed 06/21/24] aspirin 81 mg tablet,delayed release 81 mg PO DAILY 06/21/24 [History Confirmed 06/21/24] carbidopa 25 mg-levodopa 250 mg tablet 1 tab PO TID 06/21/24 [History Confirmed 06/21/24] cholecalciferol (vitamin D3) 25 mcg (1,000 unit) tablet (Vitamin D3) 25 mcg PO DAILY 06/21/24 [History Confirmed 06/21/24] diazepam 5 mg tablet 5 mg PO BID PRN unknown 06/21/24 [History Confirmed 06/21/24] duloxetine 60 mg capsule,delayed release 60 mg PO DAILY 06/21/24 [History Confirmed 06/21/24] hydroxyzine HCl 25 mg tablet 25 mg PO Q8H 06/21/24 [History Confirmed 06/21/24] ketorolac 10 mg tablet 10 mg PO Q6H PRN Pain 06/21/24 [History Confirmed 06/21/24] levothyroxine 125 mcg tablet 125 mcg PO DAILY 06/21/24 [History Confirmed 06/21/24] semaglutide 1 mg/dose (4 mg/3 mL) subcutaneous pen injector (Ozempic) 1 mg SUBCUT Q7D 06/21/24 [History Confirmed 06/21/24] Discharge Plan Discharge Patient Disposition: Home Condition: Serious Prescriptions: No Action metoprolol succinate 25 mg tablet extended release 24 hr 25 mg PO DAILY pantoprazole 40 mg tablet,delayed release (DR/EC) 40 mg PO DAILY repaglinide 2 mg tablet 2 mg PO TID potassium chloride 10 mEq tablet,ER particles/crystals 10 meq PO BID rosuvastatin 20 mg tablet 20 mg PO DAILY amlodipine 10 mg tablet 10 mg PO DAILY losartan 50 mg tablet 50 mg PO DAILY eszopiclone 2 mg tablet 1 mg PO DAILY (DME) COCK UP SPLINT See Rx Instructions .Route .MEDSUPPLY Qty: 1 0RF Rx Instructions: As directed montelukast [Singulair] 10 mg tablet 10 mg PO DAILY Spiriva Respimat 2.5 mcg/actuation mist 2 puff INHALATION DAILY Qty: 4 6RF tramadol 50 mg tablet 50 mg PO TID PRN (Reason: pain (scale score 7-10)) Qty: 90 2RF amitriptyline 50 mg tablet 100 mg PO DAILY MDD 1 30 Days Qty: 60 2RF Rx Instructions: Migraines tizanidine 4 mg tablet 4 mg PO BID PRN (Reason: muscle spasticity) Qty: 60 2RF azithromycin 500 mg tablet 500 mg PO .every other day Qty: 15 6RF furosemide [Lasix] 20 mg tablet 20 mg PO DAILY Qty: 30 3RF levothyroxine 125 mcg Tablet 125 mcg PO DAILY Vitamin D3 25 mcg (1,000 unit) Tablet 25 mcg PO DAILY Aspir-81 81 mg Tablet,Delayed Release (Dr/Ec) 81 mg PO DAILY hydroxyzine HCl 25 mg tablet 25 mg PO Q8H albuterol sulfate 2.5 mg /3 mL (0.083 %) solution for nebulization 2.5 mg inhalation QID PRN (Reason: Shortness Of Breath) carbidopa-levodopa 25-250 mg tablet 1 tab PO TID ketorolac 10 mg tablet 10 mg PO Q6H PRN (Reason: Pain) diazepam 5 mg tablet 5 mg PO BID PRN (Reason: unknown) duloxetine 60 mg capsule,delayed release(DR/EC) 60 mg PO DAILY Ozempic 1 mg/dose (4 mg/3 mL) pen injector 1 mg SUBCUT Q7D Referrals: Dmitriy Martinez MD [Primary Care Provider] - Patient Instructions: Opioid Safety Transfer Attestations Time Spent in Transfer Care: greater than 30 min Quality Metrics Clinical Quality Measures [ No reported AMI, CVA or VTE this stay] Coding Level of Care Code Acute Code for [facility] Fwd Diagnoses Acute hypoxic respiratory failure J96.01 Sepsis A41.9 Pneumonia J18.9 Right-sided chest wall pain R07.89 Acute kidney injury N17.9 Severe persistent asthma without complication J45.50 Asthma complication type: uncomplicated Asthma with acute exacerbation J45.901 NSTEMI (non-ST elevated myocardial infarction) I21.4 Acute respiratory distress R06.03
[2024-06-25 17:26] LABS: Glucose Point of Care 162 mg/dL (70-110)
--- NOTE | 2024-06-25 19:36 | PC.NURSE ---
Patient was accepted to [facility] in [place] 4[address] 4[address] Bed 1. Call number is [phone]. Report was called to Rita Garcia. [facility] transport was called and they said that it sounds like they can do it.
[2024-06-25] MEDS: enoxaparin 40 mg/0.4 mL Syringe SUBCUT (20:24)
== END 2024-06-25 20:44 | disposition short-term general hospital (02) | DRG 871 ==
LOC: ER 19:16 → ICU 21:54
PROVIDERS: Internal Medicine; Admitting Provider Family Medicine; Emergency Provider Emergency Medicine; PCP Family Medicine; Visit Provider Internal Medicine
DX: A41.9 Sepsis, unspecified organism (principal); I21.4 Non-ST elevation (NSTEMI) myocardial infarction; J18.9 Pneumonia, unspecified organism; R65.21 Severe sepsis with septic shock; J96.22 Acute and chronic respiratory failure with hypercapnia; N17.9 Acute kidney failure, unspecified; J45.51 Severe persistent asthma with (acute) exacerbation; J90 Pleural effusion, not elsewhere classified; J43.9 Emphysema, unspecified; E78.5 Hyperlipidemia, unspecified; E03.9 Hypothyroidism, unspecified; I10 Essential (primary) hypertension; F41.9 Anxiety disorder, unspecified; F32.A Depression, unspecified; K21.9 Gastro-esophageal reflux disease without esophagitis; E11.9 Type 2 diabetes mellitus without complications; I95.9 Hypotension, unspecified; S20.211A Contusion of right front wall of thorax, initial encounter; W19.XXXA Unspecified fall, initial encounter; Z79.82 Long term (current) use of aspirin; Z87.891 Personal history of nicotine dependence; Z79.85 Long-term (current) use of injectable non-insulin antidiabetic drugs
CPT/HCPCS: 0241U; 36415; 36416; 36600; 51702; 70450; 71045; 71250; 71275; 72125; 74176; 74177; 80048; 80051; 80053; 80061; 80202; 81003; 81015; 82330; 82550; 82805; 82962; 83036; 83605; 83735; 83880; 84100; 84145; 84443; 84484; 85025; 85378; 85610; 85730; 86140; 86480; 87040; 87070; 87205; 87486; 87581; 87633; 87641; 93005; 93306; 93970; 94640; 94660; 96365; 96372; 96374; 96375; 96376; 99285; 99291; J0456; J0692; J0696; J1644; J1650; J1815; J1940; J2060; J2270; J2470; J2919; J3010; J3370; J3372; J7030; J7040; J7050; J7626; P9046; Q0144

== ENCOUNTER 2024-07-11 13:43 | Inpatient (IN) | payer MEDICARE, SELFPAY ==
[2024-07-11] VITALS (12 sets, daily range): BP systolic 110–125; BP diastolic 55–93; PULSE 65–82; RESP 18–24; TEMP 36.9–37; O2SAT 75–97; BMI 39.0
--- NOTE | 2024-07-11 13:47 | ECG_ITS ---
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 Measurements Intervals [place] Rate: 86 P: 52 DE: 162 QRS: 19 QRSD: 94 T: 61 QT: 389 QTc: 465 Interpretive Statements SINUS RHYTHM WITH OCCASIONAL VENTRICULAR PREMATURE COMPLEXES LOW QRS VOLTAGE IN PRECORDIAL LEADS [QRS DEFLECTION < 1.0 mV IN CHEST LEADS] PATTERN CONSISTENT WITH PULMONARY DISEASE Compared to ECG 06/20/2024 01:17:42 Ventricular premature complex(es) now present T-wave abnormality no longer present Electronically Signed On 07-12-2024 18:47:08 CDT by Conrad Stone M.D. [id number]
--- NOTE | 2024-07-11 13:47 | XRR_ITS ---
PROCEDURE INFORMATION: Exam: XR Chest Exam date and time: 07/11/2024 2:38 PM Age: 74 years old Clinical indication: Shortness of breath; Additional info: SOB TECHNIQUE: Imaging protocol: Radiologic exam of the chest. Views: 1 view. COMPARISON: CT angio chest w abd pel w con 06/23/2024 9:32 PM FINDINGS: Lungs: Rpdj-ie-fllycynx interstitial pulmonary edema. Pleural spaces: No pleural effusion. No pneumothorax. Heart/Mediastinum: Stable marked enlargement of the cardiac silhouette. Mediastinal contours are unremarkable. Bones/joints: Unremarkable for age. XR/XR chest 1V portable [id number] IMPRESSION: 1. Ulxq-bz-tffssqpm interstitial pulmonary edema. 2. Incidental/nonacute findings are listed in the report.
[2024-07-11 14:10] LABS: Basophils % 0.1 %; Hematocrit 34.4 % (36-47); Lymphocytes # 1.8 10^3/uL (0.8-4.8); Lymphocytes % 21.3 %; Mean Corpuscular HGB Conc 31.1 g/dL (30-55); Mean Corpuscular Volume 86.9 fl (85-98); Mean Platelet Volume 11.8 fL (7.4-10.4); Monocytes # 0.4 10^3/uL (0.2-0.9); Monocytes % 5.3 %; Neutrophils # 6.04 10^3/uL (1.8-7.7); Neutrophils % 73.1 %; Nucleated Red Blood Cells % 0 %; Platelet Count 213 10^3/cmm (157-399); Red Blood Count 3.96 10^6/uL (3.85-5.65); Red Cell Distribution Width 16.4 % (12.1-15.1); White Blood Count 8.27 10^3/uL (3.29-11.43)
[2024-07-11 14:13] LABS: ABG PCO2 47.3 mmHg (35-45); ABG PH Result 7.46 (7.35-7.45); Arterial Blood Gas Hematocrit 32.8 % (37-47); Base Excess ABG 8.7 mmol/L (-2.0-2.0); Blood Gas Allen Test Pos; Blood Gas Operator Identificat WALCI; Blood Gas Sample Site Radial, right; Blood Gas Sample Type Arterial; Carboxyhemoglobin 2.1 %THgb (0.4-20.1); HCO3 ABG 33.6 mmol/L (22-26); HGB O2 Sat 70.5 % (95-100); Methemoglobin 0.7 % (0.4-1.5); Oxygen Device ROOM AIR; PO2 ABG 38.3 mmHg (80.0-100.0); PO2 FiO2 Ratio Arterial Blood 182; Total Hemoglobin 10.7 g/dL (12-16)
--- NOTE | 2024-07-11 14:14 | PC.NURSE ---
PATIENT PLACED ON 6 L NC.
--- NOTE | 2024-07-11 14:18 | ED_ITS ---
HPI - SOB/Dyspnea 2 General: Chief Complaint: Shortness of Breath/Dyspnea Stated Complaint: difficult breathing,spitting up blood Time Seen by Provider: 07/11/24 14:09 Source: patient Mode of arrival: ambulatory Limitations: no limitations History of Present Illness: HPI Narrative: 74-year-old female she has a history of COPD states she is on 3 L oxygen at baseline she states that she had a fall a few weeks ago and since then she has had increasing cough along with increasing shortness of breath especially after the last few days. States she has had increase her oxygen at home here she is requiring 6 to 7 L at this time. She states her cough has been productive and some bloody sputum Associated symptoms: Reports hemoptysis; Deny abdominal pain, chest pain, fever(s), nausea or vomiting Related Data Home Medications Medication Instructions Recorded Confirmed amlodipine 10 mg tablet 10 mg PO DAILY 11/26/19 06/21/24 losartan 50 mg tablet 50 mg PO DAILY 11/26/19 06/21/24 metoprolol succinate 25 mg 25 mg PO DAILY 11/26/19 06/21/24 tablet,extended release 24 hr pantoprazole 40 mg tablet,delayed 40 mg PO DAILY 11/26/19 06/21/24 release potassium chloride 10 mEq 10 meq PO BID 11/26/19 06/21/24 tablet,extended release(part/cryst) repaglinide 2 mg tablet 2 mg PO TID 11/26/19 06/21/24 rosuvastatin 20 mg tablet 20 mg PO DAILY 11/26/19 06/21/24 eszopiclone 2 mg tablet 1 mg PO DAILY 01/24/20 06/21/24 montelukast 10 mg tablet 10 mg PO DAILY 06/28/20 06/21/24 (Singulair) albuterol sulfate 2.5 mg/3 mL 2.5 mg inhalation QID PRN 06/21/24 06/21/24 (0.083 %) solution for nebulization Shortness Of Breath aspirin 81 mg tablet,delayed 81 mg PO DAILY 06/21/24 06/21/24 release carbidopa 25 mg-levodopa 250 mg 1 tab PO TID 06/21/24 06/21/24 tablet cholecalciferol (vitamin D3) 25 25 mcg PO DAILY 06/21/24 06/21/24 mcg (1,000 unit) tablet (Vitamin D3) diazepam 5 mg tablet 5 mg PO BID PRN unknown 06/21/24 06/21/24 duloxetine 60 mg capsule,delayed 60 mg PO DAILY 06/21/24 06/21/24 release hydroxyzine HCl 25 mg tablet 25 mg PO Q8H 06/21/24 06/21/24 ketorolac 10 mg tablet 10 mg PO Q6H PRN Pain 06/21/24 06/21/24 levothyroxine 125 mcg tablet 125 mcg PO DAILY 06/21/24 06/21/24 semaglutide 1 mg/dose (4 mg/3 mL) 1 mg SUBCUT Q7D 06/21/24 06/21/24 subcutaneous pen injector (Ozempic) Previous Rx's Medication Instructions Recorded COCK UP SPLINT #1 ea 09/20/20 azithromycin 500 mg tablet 500 mg PO .every other day copd 07/29/23 #15 tabs tiotropium bromide 2.5 2 puff inhalation DAILY #4 grams 10/31/23 mcg/actuation mist for inhalation (Spiriva Respimat) furosemide 20 mg tablet (Lasix) 20 mg PO DAILY #30 tabs 01/07/24 amitriptyline 50 mg tablet 100 mg (2 x 50 mg) PO DAILY 03/18/24 chronic pain 30 days #60 tabs tizanidine 4 mg tablet 4 mg PO BID PRN muscle spasticity 03/18/24 #60 tabs tramadol 50 mg tablet 50 mg PO TID PRN pain (scale score 03/18/24 7-10) #90 tabs Allergies Allergy/AdvReac Type Severity Reaction Status Date / Time codeine Allergy Severe ALGY-Anaphy Verified 06/19/24 19:04 laxis lisinopril AdvReac Severe ADR-Cough Verified 06/19/24 19:04 Review of Systems 2 Const: Denies: fever(s), chills, body aches or change in appetite Eyes: Denies: blurry vision or eye discomfort ENMT: Denies: throat pain or dental pain Card: Denies: chest pain Resp: Reports: dyspnea, productive cough and hemoptysis GI: Denies: abdominal pain, nausea, vomiting or diarrhea Musc: Denies: neck pain or back pain Skin/Breast: Denies: rash Neuro: Denies: headache(s) PFSH ED 2 PFSH: 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 Cervical disc disorder with myelopathy of mid-cervical region Hypothyroidism Hypertension Anxiety and depression GERD (gastroesophageal reflux disease) Chronic low back pain Diabetes Hyperlipidemia Sleep apnea Fibromyalgia CVA (cerebral vascular accident) Migraines History of colon polyps Surgical History History of back surgery x 4 Hx of cholecystectomy H/O: hysterectomy History of carpal tunnel repair right History of decompression of ulnar nerve Release of the ulnar nerve at the right elbow, with subcutaneous transposition[place]21/[place] [facility] [place]ophagog[place] few yrs ago H/O colonoscopy (~12/28/19) Cecal polyp, descending colon polyps, sigmoid diverticulosis, internal hemorrhoids History of appendectomy H/O exploratory laparotomy Family History Mother Cancer brain Diabetes Other Hypertension Lung disease Denies family history of Anesthesia complication Bleeding disorder Social History Smoking and tobacco/nicotine status: former use of tobacco/nicotine Quit status (tobacco/nicotine): has quit using Year quit tobacco: 2013 Former quit date comment: 3ppd X 46 years, started at age 17 Second hand smoke exposure: No Alcohol intake: never Substance/Drug Use: never Lives independently: Yes Household members: none Housing: House Marital status: / Current occupational status: disabled Do you think of yourself as: Straight/Heterosexual Current gender identity: Female Yara/Mosque: L[employer]-Day Physical Exam 2 Const: COMMON NORMALS: patient oriented x3 HENMT: COMMON NORMALS: normocephalic and atraumatic HEAD & SCALP: n ormocephalic and atraumatic Eye: COMMON NORMALS: Equal, round and reactive pupils present and EOMs intact bilaterally PUPIL: Yes Equal, round and reactive pupils present Neck/C-Spine: COMMON NORMALS: full ROM and supple Chest: COMMONS NORMALS: normal inspection of the chest Resp: AUSCULTATION: crackles and wheezes Cardio: COMMON NORMALS: regular rate, regular rhythm and No murmurs present (Cardio) RATE: regular rate RHYTHM: regular rhythm Extremity: COMMON NORMALS: normal to inspection and full ROM Neuro: COMMON NORMALS: patient oriented x3, moves all extremities and no focal motor deficits Psych: COMMON NORMALS: mental status grossly normal, Normal thought process present and cooperative THOUGHT PROCESS: Normal thought process present Skin: COMMON NORMALS: no rashes or lesions noted and no wounds GENERAL SKIN EXAM: no rashes or lesions noted Course 2 Vital Signs: Vital signs: Vital Signs Temperature 98.6 F 07/11/24 14:09 Pulse Rate 68 07/11/24 15:27 Respiratory Rate 18 07/11/24 14:24 Blood Pressure 125/93 07/11/24 15:27 Pulse Oximetry 93 07/11/24 15:27 Oxygen Delivery Me thod Oxymask 07/11/24 15:27 Oxygen Flow Rate 10 07/11/24 15:27 MDM - SOB/Dyspnea Medical Decision Making Patient presents here with hypoxia along with cough he does have a pneumonia she is requiring OxiMax at this time I spoke to hospitalist did start on IV antibiotics. Medical Records I reviewed the patient's medical records. Lab Data I reviewed the patient's lab results. 07/11/24 14:04 07/11/24 14:04 Labs/Radiology: Radiology Impressions Chest X-Ray 07/11/24 13:47 IMPRESSION: 1. [id number]-zi-npqhydtb interstitial pulmonary edema. 2. Incidental/nonacute findings are listed in the report. Chest CTA 07/11/24 14:47 IMPRESSION: 1. Mild to moderate interstitial pulmonary edema. More focal airspace disease in the periphery of the right middle lobe and right lower lobe suggesting alveolar edema versus pneumonia. Recommend clinical correlation. Recommend followup chest imaging to insure resolution of these findings. 2. Stable small pericardial effusion. 3. No evidence for pulmonary embolism. 4. Decreasing airspace disease with air bronchograms in the left lingula and left lower lobe suggesting resolving atelectasis or pneumonia in the these regions. 5. Stable small left pleural effusion. 6. Retained food in the thoracic esophagus. This could be due to retained esophageal contents from poor esophageal motility versus gastroesophageal reflux. Recommend clinical correlation. Upper GI examination may be obtained for further evaluation as clinically indicated. 7. Incidental/nonacute findings are listed in the report. Laboratory Results WBC 8.27 10^3/uL (3.29-11.43) 07/11/24 14:04 RBC 3.96 10^6/uL (3.85-5.65) 07/11/24 14:04 Hgb 10.70 g/dL (11.27-16.99) L 07/11/24 14:04 Hct 34.4 % (36-47) L 07/11/24 14:04 MCV 86.9 fl (85-98) 07/11/24 14:04 MCH 27.0 pg (27-33) 07/11/24 14:04 MCHC 31.1 g/dL (30-55) 07/11/24 14:04 RDW 16.4 % (12.1-15.1) H 07/11/24 14:04 Plt Count 213 10^3/cmm (157-399) 07/11/24 14:04 MPV 11.8 fL (7.4-10.4) H 07/11/24 14:04 Neut % (Auto) 73.1 % 07/11/24 14:04 Lymph % (Auto) 21.3 % 07/11/24 14:04 [place] % (Auto) 5.3 % 07/11/24 14:04 Eos % (Auto) 0.0 % 07/11/24 14:04 Baso % (Auto) 0.1 % 07/11/24 14:04 Neut # (Auto) 6.04 10^3/uL (1.8-7.7) 07/11/24 14:04 Lymph # (Auto) 1.8 10^3/uL (0.8-4.8) 07/11/24 14:04 [place] # (Auto) 0.4 10^3/uL (0.2-0.9) 07/11/24 14:04 Eos # (Auto) 0.0 10^3/uL (0.0-0.8) 07/11/24 14:04 Baso # (Auto) 0.0 10^3/uL (0.0-0.1) 07/11/24 14:04 Nucleated RBC % (auto) 0 % 07/11/24 14:04 Nucleated RBCs # 0.0 /100WBC 07/11/24 14:04 Specimen Type Arterial 07/11/24 14:02 Sample Site Radial, right 07/11/24 14:02 ABG pH 7.46 (7.35-7.45) H 07/11/24 14:02 ABG pCO2 47.3 mmHg (35-45) H 07/11/24 14:02 ABG pO2 38.3 mmHg (80.0-100.0) L* 07/11/24 14:02 ABG PO2/FiO2 Ratio 182 07/11/24 14:02 ABG HCO3 33.6 mmol/L (22-26) H 07/11/24 14:02 ABG Base Excess 8.7 mmol/L (-2.0-2.0) H 07/11/24 14:02 Jodran Test Pos 07/11/24 14:02 Hematocrit 32.8 % (37-47) L 07/11/24 14:02 Hgb O2 Saturation 70.5 % (95-100) L 07/11/24 14:02 Carboxyhemoglobin 2.1 %THgb (0.4-20.1) 07/11/24 14:02 Methemoglobin 0.7 % (0.4-1.5) 07/11/24 14:02 Total Hemoglobin 10.7 g/dL (12-16) L 07/11/24 14:02 O2 Delivery Device Room air 07/11/24 14:02 FiO2 21.0 % 07/11/24 14:02 [employer] Wafers Etcher Stripper ID [place] 07/11/24 14:02 Sodium 138 mmol/L (136-145) 07/11/24 14:04 Potassium 3.2 mmol/L (3.5-5.1) L 07/11/24 14:04 Chloride 98 mmol/L (98-107) 07/11/24 14:04 Carbon Dioxide 31 mmol/L (22-29) H 07/11/24 14:04 Anion Gap 12.2 (5-19) 07/11/24 14:04 BUN 14 mg/dL (8-23) 07/11/24 14:04 Creatinine 1.1 mg/dL (0.5-0.9) H 07/11/24 14:04 GFR Calculation Not Reportable 07/11/24 14:04 Glucose 69 mg/dL (65-115) 07/11/24 14:04 Calculated Osmolality 285 mOsm/kg (285-295) 07/11/24 14:04 Calcium 8.8 mg/dL (8.5-10.5) 07/11/24 14:04 Total Bilirubin 0.7 mg/dL (0.15-1.2) 07/11/24 14:04 AST 12 U/L (0-32) 07/11/24 14:04 ALT 12 U/L (0-33) 07/11/24 14:04 Alkaline Phosphatase 115 U/L (35-105) H 07/11/24 14:04 NT-Pro-B Natriuret Pep 998 pg/mL (0-125) H 07/11/24 14:04 Total Protein 6.1 g/dL (6.6-8.7) L 07/11/24 14:04 Albumin 3.4 g/dL (3.5-5.2) L 07/11/24 14:04 Globulin 2.7 g/dL (1.3-4.6) 07/11/24 14:04 Coronavirus (PCR) Negative (Negative) 07/11/24 15:29 Influenza A (PCR) Negative (Negative) 07/11/24 15:29 Influenza Type B (PCR) Negative (Negative) 07/11/24 15:29 RSV (PCR) Negative (Negative) 07/11/24 15:29 All radiology interpretation(s) finalized by discharge EKG Data EKG 1: I personally reviewed and interpreted this EKG as follows: EKG Interpretation Date: 07/11/24 EKG interpretation time: 13:47 Interpretation: nsr hr [address] elevation qrs 94 qtc 432 Discharge Plan Discharge Patient Disposition: Admitted As Inpatient Clinical Impression: Community acquired pneumonia, Chronic respiratory failure with hypoxia Condition: Stable Prescriptions: No Action metoprolol succinate 25 mg tablet extended release 24 hr 25 mg PO DAILY pantoprazole 40 mg tablet,delayed release (DR/EC) 40 mg PO DAILY repaglinide 2 mg tablet 2 mg PO TID potassium chloride 10 mEq tablet,ER particles/crystals 10 meq PO BID rosuvastatin 20 mg tablet 20 mg PO DAILY amlodipine 10 mg tablet 10 mg PO DAILY losartan 50 mg tablet 50 mg PO DAILY eszopiclone 2 mg tablet 1 mg PO DAILY (DME) COCK UP SPLINT See Rx Instructions .Route .MEDSUPPLY Qty: 1 0RF Rx Instructions: As directed montelukast [Singulair] 10 mg tablet 10 mg PO DAILY Spiriva Respimat 2.5 mcg/actuation mist 2 puff INHALATION DAILY Qty: 4 6RF tramadol 50 mg tablet 50 mg PO TID PRN (Reason: pain (scale score 7-10)) Qty: 90 2RF amitriptyline 50 mg tablet 100 mg PO DAILY MDD 1 30 Days Qty: 60 2RF Rx Instructions: Migraines tizanidine 4 mg tablet 4 mg PO BID PRN (Reason: muscle spasticity) Qty: 60 2RF azithromycin 500 mg tablet 500 mg PO .every other day Qty: 15 6RF furosemide [Lasix] 20 mg tablet 20 mg PO DAILY Qty: 30 3RF levothyroxine 125 mcg Tablet 125 mcg PO DAILY Vitamin D3 25 mcg (1,000 unit) Tablet 25 mcg PO DAILY Aspir-81 81 mg Tablet,Delayed Release (Dr/Ec) 81 mg PO DAILY hydroxyzine HCl 25 mg tablet 25 mg PO Q8H albuterol sulfate 2.5 mg /3 mL (0.083 %) solution for nebulization 2.5 mg inhalation QID PRN (Reason: Shortness Of Breath) carbidopa-levodopa 25-250 mg tablet 1 tab PO TID ketorolac 10 mg tablet 10 mg PO Q6H PRN (Reason: Pain) diazepam 5 mg tablet 5 mg PO BID PRN (Reason: unknown) duloxetine 60 mg capsule,delayed release(DR/EC) 60 mg PO DAILY Ozempic 1 mg/dose (4 mg/3 mL) pen injector 1 mg SUBCUT Q7D Referrals: Dmitriy Martinez MD [Primary Care Provider] - Coding Level of Care Code ED Hydraulic Blocker for Felicity Ruvalcaba
[2024-07-11] MEDS: ipratropium-albuterol 3 mL Neb INHALATION ×2 (14:26→23:42)
[2024-07-11 14:35] LABS: Alanine Aminotransferase 12 U/L (0-33); Albumin Level 3.4 g/dL (3.5-5.2); Alkaline Phosphatase 115 U/L (35-105); Anion Gap 12.2 (5-19); Aspartate Amino Transferase 12 U/L (0-32); Blood Urea Nitrogen 14 mg/dL (8-23); Calcium 8.8 mg/dL (8.5-10.5); Carbon Dioxide 31 mmol/L (22-29); Chloride 98 mmol/L (98-107); Creatinine Clr Calc Pharmacy 45.7234; Globulin 2.7 g/dL (1.3-4.6); Glucose 69 mg/dL (65-115); NT Pro B Type Natriuretic Pept 998 pg/mL (0-125); Osmolality Calculated 285 mOsm/kg (285-295); Potassium 3.2 mmol/L (3.5-5.1); Sodium 138 mmol/L (136-145); Total Bilirubin 0.7 mg/dL (0.15-1.2); Total Protein 6.1 g/dL (6.6-8.7)
[2024-07-11] MEDS: methylPREDNISolone sod succ 125 mg/2 mL INJ IVP (14:37)
--- NOTE | 2024-07-11 14:47 | CTR_ITS ---
PROCEDURE INFORMATION: Exam: CTA Chest With Contrast Exam date and time: 07/11/2024 3:11 PM Age: 74 years old Clinical indication: Shortness of breath; Additional info: SOB TECHNIQUE: Imaging protocol: Computed tomographic angiography of the chest with contrast. Exam focused on the arteries. 3D rendering (Not supervised by radiologist): MIP and/or 3D reconstructed images were created by the technologist. Radiation optimization: All CT scans at this facility use at least one of these dose optimization techniques: automated exposure control; mA and/or kV adjustment per patient size (includes targeted exams where dose is matched to clinical indication); or iterative reconstruction. Contrast material: OMNI 350; Contrast volume: 80 ml; Contrast route: INTRAVENOUS (IV); COMPARISON: CT angio chest w abd pel w con 06/23/2024 9:32 PM RADIATION DOSE METRICS: Total DLP (mGy-cm): 522.84 FINDINGS: Pulmonary arteries: No filling defects in the pulmonary arteries to suggest pulmonary embolism. Aorta: Mild atherosclerotic changes in the visualized arteries. No evidence for aortic aneurysm or aortic dissection. Lungs: Mild to moderate interstitial pulmonary edema. More focal airspace disease in the periphery of the right middle lobe and right lower lobe suggesting alveolar edema versus pneumonia. Decreasing airspace disease with air bronchograms in the left lingula and left lower lobe suggesting resolving atelectasis or pneumonia in the these regions. Calcified granuloma in the left upper lobe. Pleural spaces: Stable small left pleural effusion. No pneumothorax. Heart: Stable marked enlargement of the heart. Stable small pericardial effusion. Mediastinal space: No mediastinal hematoma. No pneumomediastinum. Lymph nodes: No lymphadenopathy. Liver: The visualized liver is unremarkable. Gallbladder and biliary ducts: Stable findings consistent with a previous cholecystectomy. Stable dilatation of the biliary ducts, not unexpected in a patient who has had a prior cholecystectomy. Pancreas: The visualized pancreas is unremarkable. No pancreatic ductal dilatation. Spleen: Stable calcified granulomas in the visualized spleen. Adrenal glands: The right and left adrenal glands are unremarkable. Kidneys: The visualized right and left kidneys are unremarkable. Stomach: Retained food in the thoracic esophagus. Bones/joints: Degenerative changes in the spine and shoulders. Bones are diffusely osteopenic. Old, moderate compression deformity of L1. Osseous findings are stable. Soft tissues: The extrathoracic soft tissues are unremarkable. CT/CT angio chest PE protcl [id number] IMPRESSION: 1. Mild to moderate interstitial pulmonary edema. More focal airspace disease in the periphery of the right middle lobe and right lower lobe suggesting alveolar edema versus pneumonia. Recommend clinical correlation. Recommend followup chest imaging to insure resolution of these findings. 2. Stable small pericardial effusion. 3. No evidence for pulmonary embolism. 4. Decreasing airspace disease with air bronchograms in the left lingula and left lower lobe suggesting resolving atelectasis or pneumonia in the these regions. 5. Stable small left pleural effusion. 6. Retained food in the thoracic esophagus. This could be due to retained esophageal contents from poor esophageal motility versus gastroesophageal reflux. Recommend clinical correlation. Upper GI examination may be obtained for further evaluation as clinically indicated. 7. Incidental/nonacute findings are listed in the report.
[2024-07-11] MEDS: iohexol 350 mg/mL 500 mL Btl (per mL) IV (15:15)
[2024-07-11 16:16] LABS: Covid PCR NEGATIVE (Negative); Influenza A NEGATIVE (Negative); Influenza B NEGATIVE (Negative); Respiratory Syncytial Virus Ce NEGATIVE (Negative)
--- NOTE | 2024-07-11 16:43 | P.HP_ITS ---
Providers/Chief Complaint 2 Primary Care Provider: Dmitriy Martinez MD Chief Complaint: difficult breathing,spitting up blood History of Present Illness Perlita Melton is a 74 year old female With a past medical history significant for asthma/COPD overlap syndrome with chronic hypoxic respiratory failure on 3 L, morbid obesity, hyperlipidemia, type 2 diabetes mellitus, and multiple other comorbidities who presents emergency department with shortness of breath and cough. Describes her cough is productive with slight blood-tinged sputum at times. Reports exertion worsens symptoms. Rest improves. Of note, she was recently admitted earlier this month for similar symptoms. At that time she required BiPAP treatment. As patient failed to respond to therapy she was transferred to [facility] for pulmonary evaluation. Patient states that she was there about 2 or 3 days and they did not do much other than wean her oxygen down. She was sent home. And told if she started to get short of breath to seek care as quickly as possible. In the emergency department, she was found to be tachypneic and requiring 10 L oxime mask. Her baseline is typically [address] PE was obtained revealing mild to moderate interstitial pulmonary edema as well as evidence of right middle lobe and lower lobe alveolar edema versus pneumonia. Review of Systems 2 Narrative: A complete review of systems was obtained and is negative except as stated in HPI. Medications/Allergies Home Medications Medication Instructions Recorded Confirmed Last Taken Type amlodipine 10 mg tablet 10 mg PO DAILY 11/26/19 06/21/24 12/27/19 History losartan 50 mg tablet 50 mg PO DAILY 11/26/19 06/21/24 12/27/19 History metoprolol succinate 25 mg 25 mg PO DAILY 11/26/19 06/21/24 12/27/19 History tablet,extended release 24 hr pantoprazole 40 mg tablet,delayed 40 mg PO DAILY 11/26/19 06/21/24 12/27/19 History release potassium chloride 10 mEq 10 meq PO BID 11/26/19 06/21/24 12/27/19 History tablet,extended release(part/cryst) repaglinide 2 mg tablet 2 mg PO TID 11/26/19 06/21/24 12/27/19 History rosuvastatin 20 mg tablet 20 mg PO DAILY 11/26/19 06/21/24 12/27/19 History eszopiclone 2 mg tablet 1 mg PO DAILY 01/24/20 06/21/24 Unknown History montelukast 10 mg tablet 10 mg PO DAILY 06/28/20 06/21/24 Unknown History (Singulair) COCK UP SPLINT #1 ea 09/20/20 06/21/24 Unknown Rx azithromycin 500 mg tablet 500 mg PO .every other day copd 07/29/23 06/21/24 Unknown Rx #15 tabs tiotropium bromide 2.5 2 puff inhalation DAILY #4 grams 10/31/23 06/21/24 Unknown Rx mcg/actuation mist for inhalation (Spiriva Respimat) furosemide 20 mg tablet (Lasix) 20 mg PO DAILY #30 tabs 01/07/24 06/21/24 Unknown Rx amitriptyline 50 mg tablet 100 mg (2 x 50 mg) PO DAILY 03/18/24 06/21/24 Unknown Rx chronic pain 30 days #60 tabs tizanidine 4 mg tablet 4 mg PO BID PRN muscle spasticity 03/18/24 06/21/24 Unknown Rx #60 tabs tramadol 50 mg tablet 50 mg PO TID PRN pain (scale score 03/18/24 06/21/24 Unknown Rx 7-10) #90 tabs albuterol sulfate 2.5 mg/3 mL 2.5 mg inhalation QID PRN 06/21/24 06/21/24 Unknown History (0.083 %) solution for nebulization Shortness Of Breath aspirin 81 mg tablet,delayed 81 mg PO DAILY 06/21/24 06/21/24 Unknown History release carbidopa 25 mg-levodopa 250 mg 1 tab PO TID 06/21/24 06/21/24 Unknown History tablet cholecalciferol (vitamin D3) 25 25 mcg PO DAILY 06/21/24 06/21/24 Unknown History mcg (1,000 unit) tablet (Vitamin D3) diazepam 5 mg tablet 5 mg PO BID PRN unknown 06/21/24 06/21/24 Unknown History duloxetine 60 mg capsule,delayed 60 mg PO DAILY 06/21/24 06/21/24 Unknown History release hydroxyzine HCl 25 mg tablet 25 mg PO Q8H 06/21/24 06/21/24 Unknown History ketorolac 10 mg tablet 10 mg PO Q6H PRN Pain 06/21/24 06/21/24 Unknown History levothyroxine 125 mcg tablet 125 mcg PO DAILY 06/21/24 06/21/24 Unknown History semaglutide 1 mg/dose (4 mg/3 mL) 1 mg SUBCUT Q7D 06/21/24 06/21/24 Unknown History subcutaneous pen injector (Ozempic) Allergies Allergy/AdvReac Type Severity Reaction Status Date / Time codeine Allergy Severe ALGY-Anaphy Verified 06/19/24 19:04 laxis lisinopril AdvReac Severe ADR-Cough Verified 06/19/24 19:04 PFSH Acute 2 PFSH: Medical History halfway (current) use of opiate analgesic Cervical disc disorder with myelopathy of mid-cervical region Hypothyroidism Hypertension Anxiety and depression GERD (gastroesophageal reflux disease) Chronic low back pain Diabetes Hyperlipidemia Sleep apnea Fibromyalgia CVA (cerebral vascular accident) Migraines History of colon polyps Surgical History History of back surgery x 4 Hx of cholecystectomy H/O: hysterectomy History of carpal tunnel repair right History of decompression of ulnar nerve Release of the ulnar nerve at the right elbow, with subcutaneous transposition[place] [facility] [place]ophagog[place] few yrs ago H/O colonoscopy (~12/28/19) Cecal polyp, descending colon polyps, sigmoid diverticulosis, internal hemorrhoids History of appendectomy H/O exploratory laparotomy Family History Mother Cancer brain Diabetes Other Hypertension Lung disease Denies family history of Anesthesia complication Bleeding disorder Social History Smoking and tobacco/nicotine status: former use of tobacco/nicotine Quit status (tobacco/nicotine): has quit using Year quit tobacco: 2013 Former quit date comment: 3ppd X 46 years, started at age 17 Second hand smoke exposure: No Alcohol intake: never Substance/Drug Use: never Lives independently: Yes Household members: none Housing: House Marital status: / Current occupational status: disabled Do you think of yourself as: Straight/Heterosexual Current gender identity: Female Yara/Congregational: Christianity Vitals/I&O/Wt Last Vital Signs Temp 98.6 F 07/11/24 14:09 Pulse 68 07/11/24 15:27 Resp 18 07/11/24 14:24 BP 125/93 07/11/24 15:27 Pulse Ox 93 07/11/24 15:27 O2 Del Method Oxymask 07/11/24 15:27 O2 Flow Rate 10 07/11/24 15:27 Weight last 48 hrs Weight 90.718 kg Physical Exam 2 Narrative: General: Patient is awake and alert. In moderate respiratory distress. Head: Normocephalic. Atraumatic. EOM intact. Neck: No JVD. Cardiovascular: RRR. No gallops. No murmurs. Lungs: Diffuse rhonchi. Faint end expiratory wheezing. Tachypnea. Inability to talk in full sentences. Skin: No jaundice. No rashes. Abdomen: Normal bowel sounds, abdomen soft and nontender. Extremities: No cyanosis or clubbing. Musculoskeletal:No swollen or erythematous joints. Neurological: Moves all 4 extremities. No myoclonus. Data 07/11/24 14:04 07/11/24 14:04 A&P Assessment and plan (1) Acute hypoxic respiratory failure: Acute on chronic hypoxic respiratory failure with hypercapnia Respiratory failure secondary to asthma/COPD exacerbation and pneumonia Treat underlying reactive airway disease and pneumonia CT reviewed negative for pulmonary embolism, revealing evidence of pneumonia with pulmonary alveolar edema Continue supplemental oxygen support May need noninvasive mechanical ventilation for work of breathing pending clinical course Encourage pulmonary toilet (2) Pneumonia: CT imaging consistent with pneumonia Patient is received IV antibiotics within the last 90 days increasing risk for multidrug-resistant organism Start meropenem and vancomycin for broad coverage MRSA screening CRP and procalcitonin Legionella and urinary strep antigen requested (3) Pulmonary edema: Imaging consistent with pulmonary edema Recent echo reviewed, largely unremarkable Cautiously starting low-dose Lasix drip for this evening 10 mg/h Replacing potassium as drip will likely further reduce potassium levels Monitor renal function closely in the setting of Lasix drip, a.m. labs ordered Strict I's and O's Daily weights (4) Asthma-COPD overlap syndrome: Asthma/COPD overlap syndrome with exacerbation in the setting of known severe persistent asthma Start Solu-Medrol Pulmicort Schedule breathing treatments Supportive care (5) Morbid obesity: Patient for would benefit from weight loss Plan DVT prophylaxis: Lovenox CODE STATUS: Full code Attestations 2 Medical Necessity Statement*: Patient presents with shortness of breath, found to have pneumonia, reactive airway exacerbation, and pulmonary edema with expected hospitalization not to cross 2 midnights for diuresis, steroids, and antibiotics. Coding Level of Care Code Acute Code for [facility] Fwd Diagnoses Acute hypoxic respiratory failure J96.01 Pneumonia J18.9 Pulmonary edema J81.1 Asthma-COPD overlap syndrome J44.89 Morbid obesity E66.01
[2024-07-11] MEDS: FUROsemide 10 mg/mL SDV 4mL 40 MG IVP (18:22)
[2024-07-11] MEDS: cefTRIAXone 1,000 mg SDV 1000 MG IVP (18:25)
[2024-07-11 18:36] LABS: C Reactive Protein 93.3 mg/L (0.0-4.9)
[2024-07-11] MEDS: azithromycin 500 MG in sodium chloride 0.9% 250 ML 250 MG IV (18:40)
[2024-07-11 18:43] LABS: Procalcitonin 0.43 ng/mL (0-0.5)
[2024-07-11 20:45] LABS: Glucose Point of Care 225 mg/dL (70-110)
[2024-07-11] MEDS: hyDROXYzine 25 mg Capsule PO (20:58)
[2024-07-11] MEDS: potassium chloride ER 20 mEq Tablet 40 MEQ PO (20:59)
[2024-07-11] MEDS: insulin lispro 100 unit/1 mL SUBCUT (20:59)
[2024-07-11] MEDS: meropenem 1,000 mg SDV 1000 MG IVP (20:59)
[2024-07-11] MEDS: methylPREDNISolone sod succ 40 mg/mL INJ IVP (21:00)
[2024-07-11] MEDS: TRAMadol 50 mg Tablet PO (21:02)
[2024-07-11] MEDS: FUROsemide 100 MG in sodium chloride 0.9% 40 ML IV (21:06)
[2024-07-11] MEDS: carbidopa-levodopa 25-250mg Tablet 1 EACH PO (21:08)
[2024-07-11] MEDS: vancomycin 1,500 MG/300 ML PIGGYBACK 200 MG IV (23:23)
[2024-07-12] VITALS (21 sets, daily range): BP systolic 92–128; BP diastolic 46–69; PULSE 70–88; RESP 13–24; TEMP 36.5–37; O2SAT 90–95
[2024-07-12 00:27] LABS: MRSA PCR OZH (swab) NOT DETECTED (Not Detecte)
[2024-07-12] MEDS: potassium chloride ER 20 mEq Tablet 40 MEQ PO ×4 (00:52→12:27)
--- NOTE | 2024-07-12 01:52 | W.PM.EVENTAC ---
Event Note Event Note: Received notification oxygen is 88-89% on 10 L oxy mask. Walking to check up on her she is up walking from the commode to the bed and rearranging some trucks on the floor. Discussed with her low oxygen, she states it usually subsides when she settles down. Oxygen as low as 79 but poor waveform. She has declined BiPAP as she poorly tolerated in the past. May consider it as a last resort. Discussed with her we will set her up with heated high flow cannula. She is also agreeable to Walker catheter and bedrest for now. Coarse sounding lung sounds, no significant wheezing, without significantly diminished air entry, she overall feels slightly better. She is currently receiving treatment with antibiotic, IV steroid, breathing treatments as well as Lasix drip. Will continue.
--- NOTE | 2024-07-12 03:05 | PC.NURSE ---
this nurse contacted respiratory around 0050 this AM about O2 sats being low and having to increase O2 level back to 10L, at 10L patient was still sating 88 to 89%, respiratory asked this nurse to contact doctor for further orders while she seen another patient, orders received to start patient on heated high flow and this nurse contacted respiratory again about new orders. Respiratory came and set up heated high flow. MD also order to place a Walker catheter, patient agreed, patient verbally understood the teaching on CAUTI prevention, Walker was placed using sterile technique.
[2024-07-12] MEDS: hyDROXYzine 25 mg Capsule PO ×3 (03:30→20:37)
[2024-07-12] MEDS: methylPREDNISolone sod succ 40 mg/mL INJ IVP ×4 (03:31→20:40)
[2024-07-12] MEDS: meropenem 1,000 mg SDV 1000 MG IVP ×2 (03:31→15:28)
[2024-07-12 03:53] LABS: Basophils % 0.2 %; Hematocrit 34.9 % (36-47); Lymphocytes # 0.7 10^3/uL (0.8-4.8); Lymphocytes % 12.9 %; Mean Corpuscular HGB Conc 31.5 g/dL (30-55); Mean Corpuscular Hemoglobin 26.7 pg (27-33); Mean Corpuscular Volume 84.7 fl (85-98); Monocytes # 0.1 10^3/uL (0.2-0.9); Monocytes % 1.5 %; Nucleated Red Blood Cells % 0 %; Platelet Count 218 10^3/cmm (157-399); Red Blood Count 4.12 10^6/uL (3.85-5.65); Red Cell Distribution Width 16.2 % (12.1-15.1); White Blood Count 5.41 10^3/uL (3.29-11.43)
[2024-07-12] MEDS: ipratropium-albuterol 3 mL Neb INHALATION ×5 (03:57→20:15)
[2024-07-12 04:11] LABS: Alanine Aminotransferase 6 U/L (0-33); Albumin Level 3.5 g/dL (3.5-5.2); Alkaline Phosphatase 115 U/L (35-105); Anion Gap 14.3 (5-19); Aspartate Amino Transferase 11 U/L (0-32); Blood Urea Nitrogen 14 mg/dL (8-23); Calcium 8.4 mg/dL (8.5-10.5); Carbon Dioxide 34 mmol/L (22-29); Chloride 95 mmol/L (98-107); Globulin 2.7 g/dL (1.3-4.6); Glucose 150 mg/dL (65-115); Magnesium 1.6 mg/dL (1.7-2.3); Osmolality Calculated 293 mOsm/kg (285-295); Phosphorus 3.4 mg/dL (2.5-4.5); Potassium 3.3 mmol/L (3.5-5.1); Sodium 140 mmol/L (136-145); Total Bilirubin 0.4 mg/dL (0.15-1.2); Total Protein 6.2 g/dL (6.6-8.7)
[2024-07-12 04:13] LABS: Creatinine Clr Calc Pharmacy 50.2957
[2024-07-12] MEDS: FUROsemide 100 MG in sodium chloride 0.9% 40 ML IV (05:02)
--- NOTE | 2024-07-12 06:00 | XR_ITS ---
WS: [id number] Exam: XR chest 1V portable [id number] Date/Time of Exam: 07/12/2024 6:00 AM Reason For Exam: Evaluate pulm edema and pna Comparison 07/11/2024. The lungs are fully expanded. No consolidating infiltrates. Mild cardiac enlargement. Small LEFT basa l pleural effusion. The mediastinum is normal in contour. Bony structures are intact. XR/XR chest 1V portable [id number] IMPRESSION: 1. Cardiac enlargement. 2. Small LEFT pleural effusion.
[2024-07-12] MEDS: levothyroxine 125 mcg Tablet PO (06:29)
[2024-07-12 06:31] LABS: Glucose Point of Care 166 mg/dL (70-110)
[2024-07-12] MEDS: budesonide 0.5 mg/2 mL Neb INHALATION ×2 (08:14→20:15)
--- NOTE | 2024-07-12 08:31 | PHA.VACGOAL ---
Vancomycin Goal - Goal Vancomycin Goal:: 15-20 mg/L Vancomycin Indication:: Pneumonia - Therapy Current therapy:: Meropenem Day of therpy:: Day [1]of [] . Actual body weight (kg): 92.624 kg - Data Labs: WBC 5.41 10^3/uL (3.29-11.43) 07/12/24 03:26 RBC 4.12 10^6/uL (3.85-5.65) 07/12/24 03:26 Hgb 11.00 g/dL (11.27-16.99) L 07/12/24 03:26 Hct 34.9 % (36-47) L 07/12/24 03:26 MCV 84.7 fl (85-98) L 07/12/24 03:26 MCH 26.7 pg (27-33) L 07/12/24 03:26 MCHC 31.5 g/dL (30-55) 07/12/24 03:26 RDW 16.2 % (12.1-15.1) H 07/12/24 03:26 Sodium 140 mmol/L (136-145) 07/12/24 03:26 Potassium 3.3 mmol/L (3.5-5.1) L 07/12/24 03:26 Chloride 95 mmol/L (98-107) L 07/12/24 03:26 Carbon Dioxide 34 mmol/L (22-29) H 07/12/24 03:26 Anion Gap 14.3 (5-19) 07/12/24 03:26 BUN 14 mg/dL (8-23) 07/12/24 03:26 Creatinine 1.0 mg/dL (0.5-0.9) H 07/12/24 03:26 GFR Calculation Not Reportable 07/12/24 03:26 Treatment plan:: new consult Regimen:: Telepharmacy dosing below: Serum Creatinine: 1.1 Indication: pneumonia Dose (mg): 1500 Frequency: daily Height (cm): 152.4 Weight (kg): 90.7 Age (Years): 74 First Dose Time and Date: 06/2245 Follow up:: Continue current dose. Pharmacy will continue to monitor daily.
[2024-07-12] MEDS: montelukast sodium 10 mg Tablet PO (08:54)
[2024-07-12] MEDS: insulin lispro 100 unit/1 mL SUBCUT ×4 (08:54→22:05)
[2024-07-12] MEDS: pantoprazole DR 40 mg Tablet PO (08:54)
[2024-07-12] MEDS: aspirin 81 mg EC Tablet PO (08:54)
[2024-07-12] MEDS: cholecalciferol (vitamin D3) 1,000 unit Tablet 1000 UNIT PO (08:54)
[2024-07-12] MEDS: duloxetine 60 mg Capsule PO (08:54)
[2024-07-12] MEDS: atorvastatin 40 mg Tablet PO (08:54)
[2024-07-12] MEDS: amitriptyline 25 mg Tablet 100 MG PO (08:54)
[2024-07-12] MEDS: carbidopa-levodopa 25-250mg Tablet 1 EACH PO ×3 (09:05→20:37)
--- NOTE | 2024-07-12 09:50 | FL_ITS ---
WS: [id number] Exam: FL barium swallow modifd [id number] Date/Time of Exam: 07/12/2024 11:55 AM Reason For Exam: Oropharyngeal dysphagia Fluoroscopy time: 2min [id number] minutes # of spot films: Modified barium swallow study was performed in conjunction with the speech therapy service. Oral pharyngeal phase of swallowing was normal. The patient experienced mild penetration into the lar yngeal inlet when ingesting thin liquid barium solution. The patient tolerated pudding consistency an d solid barium mixture foodstuffs without complication. The patient swallowed a barium tablet without difficulty. No aspiration was identified. FL/FL barium swallow modifd [id number] IMPRESSION: 1. No aspiration was observed. 2. The patient experienced mild penetration into the laryngeal inlet when swall owing thin liquid barium. A separate report with recommendations will follow from the speech therapy serv ice.
[2024-07-12] MEDS: azithromycin 250 mg Tablet 500 MG PO (10:20)
--- NOTE | 2024-07-12 15:07 | P.PN_ITS ---
Subjective 2 Subjective: Hospital course, labs appreciated. Seen with spouse at bedside. Patient currently on heated high flow 30 L 70% saturating 9091%. At baseline patient states she uses 3 to 4 L. Patient states she is feeling a lot better but continues to have difficulty in breathing on laying down flat or minimal exertion. Denies any nausea, vomiting, headache, chest pain. Vitals/I&O/Wt Last Vital Signs Temp 98.4 F 07/12/24 12:00 Pulse 88 07/12/24 12:00 Resp 24 H 07/12/24 12:00 BP 92/46 07/12/24 12:16 Pulse Ox 92 07/12/24 12:00 O2 Del Method Heated High Flow 07/12/24 12:00 O2 Flow Rate 30 07/12/24 11:30 FiO2 70 07/12/24 11:30 07/12/24 07/12/24 07/12/24 06:59 14:59 22:59 Intake Total 350 / 600 480 / 480 Output Total 3350 / 3350 1350 / 1350 Balance -3000 / -2750 -870 / -870 Weight last 48 hrs Weight 92.624 kg Weight 90.718 kg Physical Exam 2 Narrative: General: Patient is awake and alert. No acute distress, on heated high flow, chronically ill-appearing Head: Normocephalic. Atraumatic. EOM intact. Neck: No JVD. Cardiovascular: RRR. No gallops. No murmurs. Lungs: Diffuse rhonchi. Faint end expiratory wheezing. Tachypnea. Inability to talk in full sentences. Skin: No jaundice. No rashes. Abdomen: Normal bowel sounds, abdomen soft and nontender. Extremities: No cyanosis or clubbing. Musculoskeletal:No swollen or erythematous joints. Neurological: Moves all 4 extremities. No myoclonus. Urinary Catheter Management: Walker: Cath Placed During This Visit: yes Reason for Continuing Indwelling Catheter: Accurate Measurement of Urinary Output in Critically Ill Patients Urinary Catheter Date of Insertion: 07/12/24 Urinary Catheter Time of Insertion: 02:30 Data 07/12/24 03:26 07/12/24 03:26 Micro: Microbiology 07/11/24 08:09 Gram Stain - Final Sputum - Expectorated Sputum 07/11/24 18:43 Blood Culture - Preliminary Blood SPECIMEN COLLECTED 09/29/24 18:37 Blood Culture - Preliminary Blood SPECIMEN COLLECTED A&P Assessment and plan (1) Acute hypoxic respiratory failure: Acute on chronic hypoxic respiratory failure with hypercapnia Respiratory failure secondary to asthma/COPD exacerbation in setting of pneumonia, baseline sleep apnea not able to tolerate CPAP along with diastolic decompensated heart failure Treat underlying reactive airway disease and pneumonia CT reviewed negative for pulmonary embolism, revealing evidence of pneumonia with pulmonary alveolar edema Oxygen supplementation keeping saturation over 88%. Aggressive pulmonary toilet with incentive spirometry. (2) Pneumonia: CT imaging consistent with pneumonia Patient is received IV antibiotics within the last 90 days increasing risk for multidrug-resistant organism Continue with IV meropenem and vancomycin for now. MRSA swab negative but as patient is significantly sick for now we will continue the MRSA coverage with vancomycin. Add azithromycin for atypical coverage for overall 3 to 5 days. Reviewed CRP. Recheck for atypical infection with LDH, Fungitell, urine histoplasma antigen. Check bacterial antigen. Mild concerns for aspiration pneumonitis. Specially given recurrent respiratory failure. Speech evaluation and modified barium swallow. (3) Pulmonary edema: Imaging consistent with pulmonary edema Last echocardiogram showed an EF of 70%, hyperdynamic state with normal diastolic function without pericardial effusion. Currently on Lasix drip started overnight. Monitor urine output. Fluid restriction to less than 1200 cc. Repeat BMP in afternoon. Replace potassium accordingly. Target potassium around 4, magnesium around 2. Strict input output charting. Daily weights. 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 Continue with Solu-Medrol. Will plan to wean within next 24 to 48 hours. Pulmicort twice daily, DuoNeb every 4 hour. Out of bed to chair. (5) Morbid obesity: Patient for would benefit from weight loss Plan DVT prophylaxis: Lovenox CODE STATUS: Full code Carb consistent cardiac diet for now. Changed consistency as per speech evaluation. Protonix for PUD prophylaxis. Attestations 2 Medical Necessity Statement*: Requires further hospitalization for management of hypoxic and hypercapnic respiratory failure in setting of COPD exacerbation in a patient with baseline sleep apnea, diastolic heart failure, pneumonia as patient remains on heated high flow. Diagnoses Acute hypoxic respiratory failure J96.01 Pneumonia J18.9 Pulmonary edema J81.1 Asthma-COPD overlap syndrome J44.89 Morbid obesity E66.01
[2024-07-12 15:09] LABS: C Reactive Protein 74.1 mg/L (0.0-4.9); Iron 39 ug/dL (37-145); Lactate Dehydrogenase 218 U/L (135-214); Percent Saturation 16.3 % (20-50); Total Iron Binding Capacity 238 mcg/dl; Unsaturated Iron Binding 199 ug/dL (112-347)
[2024-07-12 15:25] LABS: Vitamin B12 381 pg/mL (232-1245)
[2024-07-12] MEDS: bumetanide 0.25 mg/mL SDV 10 mL 2 MG IVP ×2 (15:27→23:50)
[2024-07-12] MEDS: TRAMadol 50 mg Tablet PO ×2 (15:46→22:07)
[2024-07-12 16:28] LABS: Anion Gap 17.5 (5-19); Blood Urea Nitrogen 16 mg/dL (8-23); Calcium 8.6 mg/dL (8.5-10.5); Carbon Dioxide 32 mmol/L (22-29); Chloride 95 mmol/L (98-107); Creatinine Clr Calc Pharmacy 39.1529; Glucose 172 mg/dL (65-115); Osmolality Calculated 295 mOsm/kg (285-295); Potassium 4.5 mmol/L (3.5-5.1); Sodium 140 mmol/L (136-145)
--- NOTE | 2024-07-12 16:54 | PC.NURSE ---
Patient ambulated 18 feet in the hallway on 15L nonrebreather vital signs remained stable.
[2024-07-12 17:24] LABS: Glucose Point of Care 155 mg/dL (70-110)
[2024-07-12 17:24] LABS: Glucose Point of Care 149 mg/dL (70-110)
[2024-07-12] MEDS: diazePAM 5 mg Tablet PO (20:39)
[2024-07-12 21:32] LABS: Glucose Point of Care 146 mg/dL (70-110)
[2024-07-12] MEDS: vancomycin 1,500 MG/300 ML PIGGYBACK 200 MG IV (22:05)
[2024-07-13] VITALS (17 sets, daily range): BP systolic 116–129; BP diastolic 57–87; PULSE 72–97; RESP 16–35; TEMP 36.5–37.1; O2SAT 88–93
[2024-07-13] MEDS: ipratropium-albuterol 3 mL Neb INHALATION ×6 (00:21→20:26)
[2024-07-13] MEDS: methylPREDNISolone sod succ 40 mg/mL INJ IVP ×4 (02:11→21:02)
[2024-07-13] MEDS: meropenem 1,000 mg SDV 1000 MG IVP ×2 (03:30→16:14)
[2024-07-13] MEDS: hyDROXYzine 25 mg Capsule PO ×3 (04:34→21:02)
[2024-07-13 04:56] LABS: Basophils % 0.1 %; Hematocrit 37.4 % (36-47); Lymphocytes # 0.9 10^3/uL (0.8-4.8); Lymphocytes % 8.1 %; Mean Corpuscular HGB Conc 31.3 g/dL (30-55); Mean Corpuscular Hemoglobin 27.1 pg (27-33); Mean Corpuscular Volume 86.6 fl (85-98); Mean Platelet Volume 11.6 fL (7.4-10.4); Monocytes # 0.3 10^3/uL (0.2-0.9); Monocytes % 2.5 %; Neutrophils # 9.71 10^3/uL (1.8-7.7); Nucleated Red Blood Cells % 0 %; Platelet Count 271 10^3/cmm (157-399); Red Blood Count 4.32 10^6/uL (3.85-5.65); Red Cell Distribution Width 16.6 % (12.1-15.1)
[2024-07-13 05:17] LABS: Magnesium 1.6 mg/dL (1.7-2.3)
[2024-07-13 05:19] LABS: Alanine Aminotransferase < 5 U/L (0-33); Albumin Level 3.8 g/dL (3.5-5.2); Alkaline Phosphatase 116 U/L (35-105); Aspartate Amino Transferase 11 U/L (0-32); Blood Urea Nitrogen 20 mg/dL (8-23); Calcium 8.5 mg/dL (8.5-10.5); Carbon Dioxide 33 mmol/L (22-29); Chloride 92 mmol/L (98-107); Creatinine Clr Calc Pharmacy 39.1529; Globulin 2.5 g/dL (1.3-4.6); Glucose 180 mg/dL (65-115); Osmolality Calculated 297 mOsm/kg (285-295); Sodium 140 mmol/L (136-145); Total Bilirubin 0.5 mg/dL (0.15-1.2); Total Protein 6.3 g/dL (6.6-8.7)
[2024-07-13 05:35] LABS: Folate Level 3.7 ng/mL (4.8-37.3)
[2024-07-13 06:13] LABS: Glucose Point of Care 174 mg/dL (70-110)
[2024-07-13] MEDS: levothyroxine 125 mcg Tablet PO (06:22)
[2024-07-13] MEDS: bumetanide 0.25 mg/mL SDV 10 mL 2 MG IVP ×3 (06:22→22:48)
[2024-07-13] MEDS: budesonide 0.5 mg/2 mL Neb INHALATION ×2 (07:33→20:26)
[2024-07-13] MEDS: azithromycin 250 mg Tablet 500 MG PO (09:01)
[2024-07-13] MEDS: duloxetine 60 mg Capsule PO (09:01)
[2024-07-13] MEDS: pantoprazole DR 40 mg Tablet PO (09:01)
[2024-07-13] MEDS: carbidopa-levodopa 25-250mg Tablet 1 EACH PO ×3 (09:01→21:02)
[2024-07-13] MEDS: aspirin 81 mg EC Tablet PO (09:01)
[2024-07-13] MEDS: cholecalciferol (vitamin D3) 1,000 unit Tablet 1000 UNIT PO (09:01)
[2024-07-13] MEDS: atorvastatin 40 mg Tablet PO (09:02)
[2024-07-13] MEDS: amitriptyline 25 mg Tablet 100 MG PO (09:02)
[2024-07-13] MEDS: montelukast sodium 10 mg Tablet PO (09:02)
[2024-07-13] MEDS: insulin lispro 100 unit/1 mL SUBCUT ×2 (09:02→21:02)
--- NOTE | 2024-07-13 09:20 | PC.CHAP ---
Pastoral Care Encounter/Spiritual Assessment Type of Contact [] Declined director talent management visit [] Patient/Family/Request visit [] Outpatient visit [] Follow-up visit [] Physician referral [] Code/Alert [x] Routine visit [] Staff referral [] Actively dying [] Patient sleeping [x] Family support [] [] Out of room [] Palliative care [] [] Receiving care in room [] Pre-surgical visit [] Trauma [] Long length of stay [] ICU visit [] Other: Relational/Emotional Strength [x] Patient feels connected with others/family/visitors/staff [] Distress [] Loneliness/isolation [] Abandonment Spirituality of Patient [x] Person of Yara [] Attends Yarsanism of their Yara [x] Believes in Prayer [] Reads Bible or Hindu materials [] There are Spiritual issues to be addressed [employer] [x] Prayer [x] Active listening [] Non-anxious presence [x] Spiritual/emotional support [] Crisis/trauma care [] Spiritual counseling [] Bereavement support [] Provided bereavement packet [] Provided Bible/devotional materials [] Provided toy/stuffed animal, coloring book to patient or family member [] Provided Communion [] Anointing/Grant [] Salvation [x] Completed spiritual assessment [] Other: Impact on Illness or Injury [] Angry [] Fearful [] Anxious [] Often cries [] Exhaustion [] Unable to work [] Unable to attend quaker [] Unable to walk/stand [] Unable to read [] Unable to drive [] Unable to eat/drink [] Unable to sleep [] Unable to be with family [] Patient intubated [] Other: Summary Time spent with patient 5 min
[2024-07-13] MEDS: magnesium sulfate premix 1 GM/100 ML PIGGYBACK IV (10:53)
--- NOTE | 2024-07-13 13:08 | P.PN_ITS ---
Subjective 2 Subjective: No acute events overnight. Today morning patient seen sitting up in chair. Spouse at bedside. Patient did sit up in chair for a long time yesterday. Also walked 20 feet on 10 to 15 L nonrebreather mask. Saturating around 90-92%. States today she is feeling slightly better. Denies any nausea, vomiting, headache. Saturating more than 90%. Vitals/I&O/Wt Last Vital Signs Temp 98.8 F 07/13/24 11:05 Pulse 83 07/13/24 11:30 Resp 18 07/13/24 11:30 BP 129/57 07/13/24 11:05 Pulse Ox 91 07/13/24 11:30 O2 Del Method Heated High Flow 07/13/24 11:30 O2 Flow Rate 30 07/13/24 11:30 FiO2 50 07/13/24 11:30 07/12/24 07/13/24 07/13/24 22:59 06:59 14:59 Intake Total 530 / 1010 300 / 1310 340 / 340 Output Total 550 / 1900 1300 / 3200 Balance -20 / -890 -1000 / -1890 340 / 340 Weight last 48 hrs Weight 91.342 kg Weight 92.624 kg Weight 90.718 kg Physical Exam 2 Narrative: General: Patient is awake and alert. No acute distress, on heated high flow, chronically ill-appearing Head: Normocephalic. Atraumatic. EOM intact. Neck: No JVD. Cardiovascular: RRR. No gallops. No murmurs. Lungs: Diffuse rhonchi. Faint end expiratory wheezing. Tachypnea. Inability to talk in full sentences. Skin: No jaundice. No rashes. Abdomen: Normal bowel sounds, abdomen soft and nontender. Extremities: No cyanosis or clubbing. Musculoskeletal:No swollen or erythematous joints. Neurological: Moves all 4 extremities. No myoclonus. Urinary Catheter Management: Walker: Cath Placed During This Visit: yes Reason for Continuing Indwelling Catheter: Acute Urinary Retention or Obstruction Urinary Catheter Date of Insertion: 07/12/24 Urinary Catheter Time of Insertion: 02:30 Data 07/13/24 04:27 07/13/24 04:27 Micro: Microbiology 07/13/24 02:15 Bacterial Antigens - Final Urine Kidney 07/11/24 18:43 Blood Culture - Preliminary Blood NEGATIVE TO DATE 07/11/24 18:37 Blood Culture - Preliminary Blood NEGATIVE TO DATE 07/11/24 08:09 Gram Stain - Final Sputum - Expectorated Sputum A&P Assessment and plan (1) Acute hypoxic respiratory failure: Acute on chronic hypoxic respiratory failure with hypercapnia Respiratory failure secondary to asthma/COPD exacerbation in setting of pneumonia, baseline sleep apnea not able to tolerate CPAP along with diastolic decompensated heart failure Treat underlying reactive airway disease and pneumonia CT reviewed negative for pulmonary embolism, revealing evidence of pneumonia with pulmonary alveolar edema Oxygen supplementation keeping saturation over 88%. Aggressive pulmonary toilet with incentive spirometry. (2) Pneumonia: CT imaging consistent with pneumonia Patient is received IV antibiotics within the last 90 days increasing risk for multidrug-resistant organism Continue with IV meropenem and vancomycin for now. MRSA swab negative but as patient is significantly sick for now we will continue the MRSA coverage with vancomycin. Plan to continue IV antibiotics for 5-day course. Add azithromycin for atypical coverage for overall 3 to 5 days. Reviewed CRP. Recheck for atypical infection with LDH, Fungitell, urine histoplasma antigen. Check bacterial antigen. Mild concerns for aspiration pneumonitis. Specially given recurrent respiratory failure. Speech evaluation and modified barium swallow. (3) Pulmonary edema: Imaging consistent with pulmonary edema Last echocardiogram showed an EF of 70%, hyperdynamic state with normal diastolic function without pericardial effusion. Currently on Lasix drip started overnight. Monitor urine output. Fluid restriction to less than 1200 cc. Repeat BMP in afternoon. Replace potassium accordingly. Target potassium around 4, magnesium around 2. Strict input output charting. Daily weights. 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 Continue with Solu-Medrol. Will plan to wean within next 24 to 48 hours. Pulmicort twice daily, DuoNeb every 4 hour. Out of bed to chair. (5) Morbid obesity: Patient for would benefit from weight loss Plan DVT prophylaxis: Lovenox CODE STATUS: Discussed in detail with the patient. She is okay with chest compressions but does not want life support. Does not tolerate mechanical ventilation. CODE STATUS changed to limited resuscitation with okay with chest compressions only. Carb consistent cardiac diet for now. Changed consistency as per speech evaluation. Protonix for PUD prophylaxis. Plan for the day: Lasix drip stopped. Switch to Bumex 2 mg IV every 8 hourly. Repeat BMP in afternoon. Monitor urine output. Maintain potassium around 4. Replace accordingly. Wean oxygen supplementation keeping saturation over 86 to 88%. Plan to transition and trial of high flow nasal cannula today. Maintain out of bed to chair. Continue with nebulization treatment. Wean Solu-Medrol to 40 mg IV every 8 hours. Continue IV antibiotics for overall 5 days. Continue to finish azithromycin 3- day course. Continue with aggressive pulmonary toilet. Follow-up blood, urine and sputum culture. Follow-up Fungitell and histoplasma antigen. Attestations 2 Medical Necessity Statement*: Requires further hospitalization for management of hypoxic respiratory failure in setting of COPD, sleep apnea exacerbation, diastolic heart failure as patient remains on heated high flow Diagnoses Acute hypoxic respiratory failure J96.01 Pneumonia J18.9 Pulmonary edema J81.1 Asthma-COPD overlap syndrome J44.89 Morbid obesity E66.01
[2024-07-13 15:50] LABS: Anion Gap 18.9 (5-19); Blood Urea Nitrogen 24 mg/dL (8-23); Calcium 8.4 mg/dL (8.5-10.5); Carbon Dioxide 30 mmol/L (22-29); Chloride 92 mmol/L (98-107); Creatinine Clr Calc Pharmacy 38.8409; Glucose 175 mg/dL (65-115); Osmolality Calculated 292 mOsm/kg (285-295); Potassium 3.9 mmol/L (3.5-5.1); Sodium 137 mmol/L (136-145)
[2024-07-13 20:55] LABS: Glucose Point of Care 227 mg/dL (70-110)
[2024-07-13] MEDS: vancomycin 1,000 MG in sodium chloride 0.9% 250 ML 250 MG IV (22:49)
[2024-07-14] VITALS (17 sets, daily range): BP systolic 104–127; BP diastolic 65–92; PULSE 73–99; RESP 16–24; TEMP 36.4–36.8; O2SAT 89–92
[2024-07-14] MEDS: ipratropium-albuterol 3 mL Neb INHALATION ×7 (00:37→23:37)
[2024-07-14] MEDS: meropenem 1,000 mg SDV 1000 MG IVP ×2 (04:37→16:11)
[2024-07-14] MEDS: methylPREDNISolone sod succ 40 mg/mL INJ IVP ×4 (04:37→20:29)
[2024-07-14] MEDS: hyDROXYzine 25 mg Capsule PO ×3 (04:37→20:33)
[2024-07-14 05:14] LABS: Basophils % 0.1 %; Lymphocytes # 1.2 10^3/uL (0.8-4.8); Lymphocytes % 12.8 %; Mean Corpuscular HGB Conc 31.4 g/dL (30-55); Mean Corpuscular Hemoglobin 26.9 pg (27-33); Mean Corpuscular Volume 85.8 fl (85-98); Monocytes # 0.4 10^3/uL (0.2-0.9); Monocytes % 4.2 %; Neutrophils # 7.39 10^3/uL (1.8-7.7); Neutrophils % 82.6 %; Nucleated Red Blood Cells % 0 %; Platelet Count 296 10^3/cmm (157-399); Red Blood Count 4.31 10^6/uL (3.85-5.65); Red Cell Distribution Width 16.7 % (12.1-15.1); White Blood Count 8.96 10^3/uL (3.29-11.43)
[2024-07-14 05:34] LABS: Alanine Aminotransferase < 5 U/L (0-33); Albumin Level 3.6 g/dL (3.5-5.2); Alkaline Phosphatase 108 U/L (35-105); Anion Gap 15.6 (5-19); Aspartate Amino Transferase 13 U/L (0-32); Blood Urea Nitrogen 26 mg/dL (8-23); Calcium 7.9 mg/dL (8.5-10.5); Carbon Dioxide 35 mmol/L (22-29); Chloride 93 mmol/L (98-107); Creatinine Clr Calc Pharmacy 42.0776; Globulin 2.5 g/dL (1.3-4.6); Glucose 130 mg/dL (65-115); Osmolality Calculated 297 mOsm/kg (285-295); Potassium 3.6 mmol/L (3.5-5.1); Sodium 140 mmol/L (136-145); Total Bilirubin 0.5 mg/dL (0.15-1.2); Total Protein 6.1 g/dL (6.6-8.7)
[2024-07-14 06:42] LABS: Glucose Point of Care 139 mg/dL (70-110)
[2024-07-14] MEDS: levothyroxine 125 mcg Tablet PO (06:44)
[2024-07-14] MEDS: bumetanide 0.25 mg/mL SDV 10 mL 2 MG IVP ×3 (06:44→23:18)
[2024-07-14] MEDS: budesonide 0.5 mg/2 mL Neb INHALATION ×2 (07:42→20:16)
[2024-07-14] MEDS: atorvastatin 40 mg Tablet PO (08:53)
[2024-07-14] MEDS: azithromycin 250 mg Tablet 500 MG PO (08:53)
[2024-07-14] MEDS: cholecalciferol (vitamin D3) 1,000 unit Tablet 1000 UNIT PO (08:53)
[2024-07-14] MEDS: pantoprazole DR 40 mg Tablet PO (08:53)
[2024-07-14] MEDS: aspirin 81 mg EC Tablet PO (08:53)
[2024-07-14] MEDS: montelukast sodium 10 mg Tablet PO (08:53)
[2024-07-14] MEDS: carbidopa-levodopa 25-250mg Tablet 1 EACH PO ×3 (08:53→20:33)
[2024-07-14] MEDS: duloxetine 60 mg Capsule PO (08:53)
[2024-07-14] MEDS: amitriptyline 25 mg Tablet 100 MG PO (08:54)
[2024-07-14] MEDS: heparin 5,000 unit/mL INJ 1 mL 5000 UNIT SUBCUT ×2 (09:49→21:12)
--- NOTE | 2024-07-14 11:06 | PC.SOCIAL ---
IMM Updated Updated pt on IMM. No questions voiced. Provided pt a copy. Initialed, dated, & timed a copy & placed in chart.
[2024-07-14] MEDS: insulin lispro 100 unit/1 mL SUBCUT ×3 (12:09→21:13)
--- NOTE | 2024-07-14 12:15 | P.PN_ITS ---
Subjective 2 Subjective: No acute events overnight. Today morning seen with family at bedside. Patient sitting up in chair. States he is feeling a lot better. Did have a better night of sleep last night. Down to 5 L of nasal cannula oxygen supplementation. Saturating more than 90%. Vitals/I&O/Wt Last Vital Signs Temp 98.2 F 07/14/24 11:35 Pulse 90 07/14/24 11:52 Resp 18 07/14/24 11:44 BP 123/92 07/14/24 11:35 Pulse Ox 91 07/14/24 11:44 O2 Del Method High Flow Nasal Cannula 07/14/24 11:44 O2 Flow Rate 5 07/14/24 11:44 FiO2 45 07/13/24 13:08 07/13/24 07/14/24 07/14/24 22:59 06:59 14:59 Intake Total 240 / 820 250 / 1070 480 / 480 Output Total 600 / 1000 750 / 750 Balance -360 / -180 250 / 70 -270 / -270 Weight last 48 hrs Weight 91.342 kg Weight 91.342 kg Physical Exam 2 Narrative: General: Patient is awake and alert. No acute distress, on heated high flow, chronically ill-appearing Head: Normocephalic. Atraumatic. EOM intact. Neck: No JVD. Cardiovascular: RRR. No gallops. No murmurs. Lungs: Diffuse rhonchi. Faint end expiratory wheezing. Tachypnea. Inability to talk in full sentences. Skin: No jaundice. No rashes. Abdomen: Normal bowel sounds, abdomen soft and nontender. Extremities: No cyanosis or clubbing. Musculoskeletal:No swollen or erythematous joints. Neurological: Moves all 4 extremities. No myoclonus. Urinary Catheter Management: Walker: Cath Placed During This Visit: yes Reason for Continuing Indwelling Catheter: Accurate Measurement of Urinary Output in Critically Ill Patients Urinary Catheter Date of Insertion: 07/12/24 Urinary Catheter Time of Insertion: 02:30 Data 07/14/24 04:07 07/14/24 04:07 Micro: Microbiology 07/11/24 08:09 Gram Stain - Final Sputum - Expectorated Sputum Sputum Culture - Preliminary 07/13/24 02:15 Bacterial Antigens - Final Urine Kidney A&P Assessment and plan (1) Acute hypoxic respiratory failure: Acute on chronic hypoxic respiratory failure with hypercapnia Respiratory failure secondary to asthma/COPD exacerbation in setting of pneumonia, baseline sleep apnea not able to tolerate CPAP along with diastolic decompensated heart failure Treat underlying reactive airway disease and pneumonia CT reviewed negative for pulmonary embolism, revealing evidence of pneumonia with pulmonary alveolar edema Oxygen supplementation keeping saturation over 88%. Aggressive pulmonary toilet with incentive spirometry. (2) Pneumonia: CT imaging consistent with pneumonia Patient is received IV antibiotics within the last 90 days increasing risk for multidrug-resistant organism Continue with IV meropenem and vancomycin for now. MRSA swab negative but as patient is significantly sick for now we will continue the MRSA coverage with vancomycin. Plan to continue IV antibiotics for 5-day course. Add azithromycin for atypical coverage for overall 3 to 5 days. Reviewed CRP. Recheck for atypical infection with LDH, Fungitell, urine histoplasma antigen. Check bacterial antigen. Mild concerns for aspiration pneumonitis. Specially given recurrent respiratory failure. Speech evaluation and modified barium swallow. (3) Pulmonary edema: Imaging consistent with pulmonary edema Last echocardiogram showed an EF of 70%, hyperdynamic state with normal diastolic function without pericardial effusion. Currently on Lasix drip started overnight. Monitor urine output. Fluid restriction to less than 1200 cc. Repeat BMP in afternoon. Replace potassium accordingly. Target potassium around 4, magnesium around 2. Strict input output charting. Daily weights. 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 Continue with Solu-Medrol. Will plan to wean within next 24 to 48 hours. Pulmicort twice daily, DuoNeb every 4 hour. Out of bed to chair. (5) Morbid obesity: Patient for would benefit from weight loss Plan DVT prophylaxis: Lovenox CODE STATUS: Discussed in detail with the patient. She is okay with chest compressions but does not want life support. Does not tolerate mechanical ventilation. CODE STATUS changed to limited resuscitation with okay with chest compressions only. Carb consistent cardiac diet for now. Changed consistency as per speech evaluation. Protonix for PUD prophylaxis. Plan for the day: Patient down to baseline oxygen supplementation of 5 L. Overall around 5 L negative. Continue with Bumex 2 mg every 8 hourly. Creatinine with slight improvement down to 1.2. Patient seems to be getting close to her baseline respiratory status now. For now continue with IV antibiotics with meropenem and vancomycin to finish a 5-day course. Last dose of IV antibiotics on 07/17. If she continues to improve before that can transition to oral antibiotics. Wean Solu-Medrol to 40 mg every 8 hourly. Will plan to wean aggressively within next 24 to 48 hours. Physical therapy evaluation. Follow-up blood culture, sputum culture results. Attestations 2 Medical Necessity Statement*: Requires further hospitalization for management of acute on chronic hypoxic respiratory failure in setting of COPD and obstructive sleep apnea exacerbation. Diagnoses Acute hypoxic respiratory failure J96.01 Pneumonia J18.9 Pulmonary edema J81.1 Asthma-COPD overlap syndrome J44.89 Morbid obesity E66.01
[2024-07-14] MEDS: TRAMadol 50 mg Tablet PO ×2 (13:35→20:33)
[2024-07-14 14:20] LABS: Fungitell 1-3-B Glucan Assay <31 pg/ml; Interpretation Negative (Negative)
--- NOTE | 2024-07-14 16:09 | PC.NURSE ---
Message sent to case management for help with this: Patient was suppose to be going a cruise leaving this coming Friday. So of course she will not be able to go. They are trying to get some of the money back. they need from us a statement saying : the date of admission , DX, that she is currently still in the hospital, and then signed by the provider. She said she is okay with this and would like us to do this.
[2024-07-14 17:20] LABS: Glucose Point of Care 168 mg/dL (70-110)
[2024-07-14] MEDS: trazodone 50 mg Tablet PO (20:33)
[2024-07-14 20:54] LABS: Glucose Point of Care 179 mg/dL (70-110)
[2024-07-14 22:54] LABS: Vancomycin Trough 19.2 ug/mL (10-15)
[2024-07-14] MEDS: vancomycin 1,000 MG in sodium chloride 0.9% 250 ML 250 MG IV (23:17)
[2024-07-14] MEDS: acetaminophen 325 mg Tablet 650 MG PO (23:22)
[2024-07-15] VITALS (14 sets, daily range): BP systolic 109–142; BP diastolic 68–79; PULSE 73–97; RESP 16–20; TEMP 36.7–36.8; O2SAT 86–92
[2024-07-15] MEDS: meropenem 1,000 mg SDV 1000 MG IVP ×2 (03:47→18:00)
[2024-07-15] MEDS: hyDROXYzine 25 mg Capsule PO ×3 (03:47→20:57)
[2024-07-15] MEDS: methylPREDNISolone sod succ 40 mg/mL INJ IVP ×3 (03:48→20:57)
[2024-07-15 04:35] LABS: Hematocrit 36.2 % (36-47); Lymphocytes % 14.3 %; Mean Corpuscular Volume 84.2 fl (85-98); Mean Platelet Volume 12.1 fL (7.4-10.4); Monocytes # 0.6 10^3/uL (0.2-0.9); Monocytes % 8.3 %; Neutrophils # 5.19 10^3/uL (1.8-7.7); Neutrophils % 76.8 %; Nucleated Red Blood Cells % 0 %; Platelet Count 273 10^3/cmm (157-399); Red Cell Distribution Width 16.6 % (12.1-15.1); White Blood Count 6.76 10^3/uL (3.29-11.43)
[2024-07-15] MEDS: ipratropium-albuterol 3 mL Neb INHALATION ×5 (04:35→20:11)
[2024-07-15 04:55] LABS: Magnesium 1.8 mg/dL (1.7-2.3)
[2024-07-15 04:58] LABS: Alanine Aminotransferase 7 U/L (0-33); Albumin Level 3.7 g/dL (3.5-5.2); Alkaline Phosphatase 97 U/L (35-105); Anion Gap 13.3 (5-19); Aspartate Amino Transferase 24 U/L (0-32); Blood Urea Nitrogen 28 mg/dL (8-23); Calcium 7.9 mg/dL (8.5-10.5); Carbon Dioxide 37 mmol/L (22-29); Chloride 91 mmol/L (98-107); Creatinine Clr Calc Pharmacy 42.0776; Globulin 2.2 g/dL (1.3-4.6); Glucose 125 mg/dL (65-115); Osmolality Calculated 293 mOsm/kg (285-295); Potassium 3.3 mmol/L (3.5-5.1); Sodium 138 mmol/L (136-145); Total Bilirubin 0.5 mg/dL (0.15-1.2); Total Protein 5.9 g/dL (6.6-8.7)
[2024-07-15 06:30] LABS: Glucose Point of Care 143 mg/dL (70-110)
[2024-07-15] MEDS: bumetanide 0.25 mg/mL SDV 10 mL 2 MG IVP (06:35)
[2024-07-15] MEDS: levothyroxine 125 mcg Tablet PO (06:35)
[2024-07-15] MEDS: TRAMadol 50 mg Tablet PO ×2 (07:14→20:57)
[2024-07-15] MEDS: insulin lispro 100 unit/1 mL SUBCUT ×2 (07:31→20:57)
[2024-07-15] MEDS: budesonide 0.5 mg/2 mL Neb INHALATION ×2 (07:43→20:11)
[2024-07-15] MEDS: carbidopa-levodopa 25-250mg Tablet 1 EACH PO ×3 (08:20→20:57)
[2024-07-15] MEDS: cholecalciferol (vitamin D3) 1,000 unit Tablet 1000 UNIT PO (08:21)
[2024-07-15] MEDS: aspirin 81 mg EC Tablet PO (08:21)
[2024-07-15] MEDS: atorvastatin 40 mg Tablet PO (08:21)
[2024-07-15] MEDS: duloxetine 60 mg Capsule PO (08:21)
[2024-07-15] MEDS: montelukast sodium 10 mg Tablet PO (08:21)
[2024-07-15] MEDS: heparin 5,000 unit/mL INJ 1 mL 5000 UNIT SUBCUT ×2 (08:21→20:57)
[2024-07-15] MEDS: azithromycin 250 mg Tablet 500 MG PO (08:22)
[2024-07-15] MEDS: pantoprazole DR 40 mg Tablet PO (08:22)
[2024-07-15] MEDS: amitriptyline 25 mg Tablet 100 MG PO (08:22)
[2024-07-15] MEDS: bumetanide 1 mg Tablet 2 MG PO ×2 (10:10→18:01)
[2024-07-15 11:16] LABS: Glucose Point of Care 111 mg/dL (70-110)
--- NOTE | 2024-07-15 11:52 | P.PN_ITS ---
Subjective 2 Subjective: No acute vents overnight. Seen with spouse at bedside. Patient states she continues to feel better. Sitting up in chair again today. Walked with physical therapy. Saturating well on 4 L. During walk with physical therapy required up to 6 L but returned back to 4 L on resting. Vitals/I&O/Wt Last Vital Signs Temp 98.2 F 07/15/24 07:34 Pulse 73 07/15/24 07:43 Resp 20 H 07/15/24 07:43 BP 127/74 07/15/24 07:34 Pulse Ox 90 07/15/24 07:43 O2 Del Method Nasal Cannula 07/15/24 07:43 O2 Flow Rate 5 07/15/24 07:43 FiO2 45 07/13/24 13:08 07/14/24 07/15/24 07/15/24 22:59 06:59 14:59 Intake Total 120 / 822 650 / 1472 120 / 120 Output Total 800 / 1750 1400 / 3150 600 / 600 Balance -680 / -928 -750 / -1678 -480 / -480 Weight last 48 hrs Weight 146.51 kg Weight 91.342 kg Physical Exam 2 Narrative: General: Patient is awake and alert. No acute distress, on heated high flow, chronically ill-appearing Head: Normocephalic. Atraumatic. EOM intact. Neck: No JVD. Cardiovascular: RRR. No gallops. No murmurs. Lungs: Diffuse rhonchi. Faint end expiratory wheezing. Tachypnea. Inability to talk in full sentences. Skin: No jaundice. No rashes. Abdomen: Normal bowel sounds, abdomen soft and nontender. Extremities: No cyanosis or clubbing. Musculoskeletal:No swollen or erythematous joints. Neurological: Moves all 4 extremities. No myoclonus. Urinary Catheter Management: Walker: Cath Placed During This Visit: yes Reason for Continuing Indwelling Catheter: Accurate Measurement of Urinary Output in Critically Ill Patients Urinary Catheter Date of Insertion: 07/12/24 Urinary Catheter Time of Insertion: 02:30 Data 07/15/24 03:43 07/15/24 03:43 Micro: Microbiology 07/11/24 08:09 Gram Stain - Final Sputum - Expectorated Sputum Sputum Culture - Final A&P Assessment and plan (1) Acute hypoxic respiratory failure: Acute on chronic hypoxic respiratory failure with hypercapnia Respiratory failure secondary to asthma/COPD exacerbation in setting of pneumonia, baseline sleep apnea not able to tolerate CPAP along with diastolic decompensated heart failure Treat underlying reactive airway disease and pneumonia CT reviewed negative for pulmonary embolism, revealing evidence of pneumonia with pulmonary alveolar edema Oxygen supplementation keeping saturation over 88%. Aggressive pulmonary toilet with incentive spirometry. (2) Pneumonia: CT imaging consistent with pneumonia Patient is received IV antibiotics within the last 90 days increasing risk for multidrug-resistant organism Continue with IV meropenem and vancomycin for now. MRSA swab negative but as patient is significantly sick for now we will continue the MRSA coverage with vancomycin. Plan to continue IV antibiotics for 5-day course. Add azithromycin for atypical coverage for overall 3 to 5 days. Reviewed CRP. Recheck for atypical infection with LDH, Fungitell, urine histoplasma antigen. Check bacterial antigen. Mild concerns for aspiration pneumonitis. Specially given recurrent respiratory failure. Speech evaluation and modified barium swallow. (3) Pulmonary edema: Imaging consistent with pulmonary edema Last echocardiogram showed an EF of 70%, hyperdynamic state with normal diastolic function without pericardial effusion. Currently on Lasix drip started overnight. Monitor urine output. Fluid restriction to less than 1200 cc. Repeat BMP in afternoon. Replace potassium accordingly. Target potassium around 4, magnesium around 2. Strict input output charting. Daily weights. 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 Continue with Solu-Medrol. Will plan to wean within next 24 to 48 hours. Pulmicort twice daily, DuoNeb every 4 hour. Out of bed to chair. (5) Morbid obesity: Patient for would benefit from weight loss Plan DVT prophylaxis: Lovenox CODE STATUS: Discussed in detail with the patient. She is okay with chest compressions but does not want life support. Does not tolerate mechanical ventilation. CODE STATUS changed to limited resuscitation with okay with chest compressions only. Carb consistent cardiac diet for now. Changed consistency as per speech evaluation. Protonix for PUD prophylaxis. Plan for the day: Down to 4 L at rest. Working well with physical therapy. Wean Solu-Medrol to 40 mg every 12 hourly. Will plan to wean further within next 24 hours. Change Bumex to 2 mg twice daily. Appreciate renal functions. Replete potassium 80 mg orally. Repeat BMP in afternoon. Continue with IV antibiotics with vancomycin and meropenem for now. Discussed in detail with the patient about possible discharge within next 24 hours. Discussed about fluid restriction and management of body weight and fluid intake and output at home. Discharge plan: Plan to discharge in next 24 hours the patient remains in medically stable and at baseline oxygen supplementation after home O2 evaluation. Most likely will need oral antibiotics on discharge. Will plan for possible home health if agreeable with patient. Attestations 2 Medical Necessity Statement*: Requires further hospitalization for management of hypoxic respiratory failure in setting of COPD and obstructive sleep apnea exacerbation Diagnoses Acute hypoxic respiratory failure J96.01 Pneumonia J18.9 Pulmonary edema J81.1 Asthma-COPD overlap syndrome J44.89 Morbid obesity E66.01
[2024-07-15] MEDS: potassium chloride ER 20 mEq Tablet 80 MEQ PO (12:36)
[2024-07-15 16:45] LABS: Glucose Point of Care 139 mg/dL (70-110)
[2024-07-15 16:45] LABS: Glucose Point of Care 114 mg/dL (70-110)
[2024-07-15] MEDS: trazodone 50 mg Tablet PO (20:58)
[2024-07-15 21:06] LABS: Glucose Point of Care 212 mg/dL (70-110)
[2024-07-15 22:28] LABS: Blood Urea Nitrogen 31 mg/dL (8-23); Calcium 8.3 mg/dL (8.5-10.5); Carbon Dioxide 31 mmol/L (22-29); Chloride 90 mmol/L (98-107); Creatinine Clr Calc Pharmacy 61.7706; Glucose 170 mg/dL (65-115); Osmolality Calculated 291 mOsm/kg (285-295); Sodium 135 mmol/L (136-145)
[2024-07-15 22:36] LABS: Anion Gap 17.9 (5-19); Potassium 3.9 mmol/L (3.5-5.1)
[2024-07-15] MEDS: vancomycin 1,000 MG in sodium chloride 0.9% 250 ML 250 MG IV (23:06)
[2024-07-16] VITALS (11 sets, daily range): BP systolic 93–120; BP diastolic 62–67; PULSE 68–88; RESP 16–21; TEMP 36.6–37; O2SAT 84–96
[2024-07-16] MEDS: ipratropium-albuterol 3 mL Neb INHALATION ×4 (00:30→11:20)
[2024-07-16] MEDS: hyDROXYzine 25 mg Capsule PO ×2 (03:19→10:59)
[2024-07-16] MEDS: TRAMadol 50 mg Tablet PO ×2 (03:19→10:59)
[2024-07-16] MEDS: meropenem 1,000 mg SDV 1000 MG IVP (03:19)
[2024-07-16 05:49] LABS: Basophils % 0.2 %; Hematocrit 36.6 % (36-47); Lymphocytes % 15.5 %; Mean Corpuscular HGB Conc 31.4 g/dL (30-55); Mean Corpuscular Hemoglobin 26.6 pg (27-33); Mean Corpuscular Volume 84.5 fl (85-98); Mean Platelet Volume 11.4 fL (7.4-10.4); Monocytes # 0.6 10^3/uL (0.2-0.9); Monocytes % 9.4 %; Neutrophils # 4.93 10^3/uL (1.8-7.7); Neutrophils % 74.3 %; Nucleated Red Blood Cells % 0 %; Platelet Count 260 10^3/cmm (157-399); Red Blood Count 4.33 10^6/uL (3.85-5.65); Red Cell Distribution Width 16.4 % (12.1-15.1); White Blood Count 6.63 10^3/uL (3.29-11.43)
[2024-07-16 06:06] LABS: Alanine Aminotransferase 13 U/L (0-33); Albumin Level 3.6 g/dL (3.5-5.2); Alkaline Phosphatase 94 U/L (35-105); Blood Urea Nitrogen 30 mg/dL (8-23); Carbon Dioxide 34 mmol/L (22-29); Chloride 92 mmol/L (98-107); Creatinine Clr Calc Pharmacy 50.2384; Globulin 2.2 g/dL (1.3-4.6); Glucose 129 mg/dL (65-115); Osmolality Calculated 292 mOsm/kg (285-295); Sodium 137 mmol/L (136-145); Total Bilirubin 0.5 mg/dL (0.15-1.2); Total Protein 5.8 g/dL (6.6-8.7)
[2024-07-16 06:09] LABS: Aspartate Amino Transferase 32 U/L (0-32)
[2024-07-16] MEDS: levothyroxine 125 mcg Tablet PO (06:14)
[2024-07-16 06:59] LABS: Glucose Point of Care 130 mg/dL (70-110)
[2024-07-16] MEDS: budesonide 0.5 mg/2 mL Neb INHALATION (07:47)
[2024-07-16] MEDS: pantoprazole DR 40 mg Tablet PO (08:18)
[2024-07-16] MEDS: carbidopa-levodopa 25-250mg Tablet 1 EACH PO (08:18)
[2024-07-16] MEDS: duloxetine 60 mg Capsule PO (08:19)
[2024-07-16] MEDS: montelukast sodium 10 mg Tablet PO (08:19)
[2024-07-16] MEDS: bumetanide 1 mg Tablet 2 MG PO (08:19)
[2024-07-16] MEDS: cholecalciferol (vitamin D3) 1,000 unit Tablet 1000 UNIT PO (08:20)
[2024-07-16] MEDS: atorvastatin 40 mg Tablet PO (08:20)
[2024-07-16] MEDS: azithromycin 250 mg Tablet 500 MG PO (08:20)
[2024-07-16] MEDS: amitriptyline 25 mg Tablet 100 MG PO (08:21)
[2024-07-16] MEDS: aspirin 81 mg EC Tablet PO (08:21)
[2024-07-16] MEDS: heparin 5,000 unit/mL INJ 1 mL 5000 UNIT SUBCUT (09:15)
[2024-07-16] MEDS: methylPREDNISolone sod succ 40 mg/mL INJ IVP (09:15)
--- NOTE | 2024-07-16 09:18 | PC.SOCIAL ---
IMM Updated Updated pt on IMM. No questions voiced. Provided pt a copy. Initialed, dated, & timed copy in chart.
--- NOTE | 2024-07-16 10:18 | PC.CHAP ---
Pastoral Care Encounter/Spiritual Assessment Type of Contact [] Declined supervisor pipe joints visit [] Patient/Family/Request visit [] Outpatient visit [] Follow-up visit [] Physician referral [] Code/Alert [] Routine visit [] Staff referral [] Actively dying [] Patient sleeping [] Family support [] [] Out of room [] Palliative care [] [] Receiving care in room [] Pre-surgical visit [] Trauma [] Long length of stay [] ICU visit [] Other: Visiting bed 2 Relational/Emotional Strength [x] Patient feels connected with others/family/visitors/staff [] Distress [x] Loneliness/isolation [] Abandonment Spirituality of Patient [x] Person of Yara [] Attends Hindu of their Yara [x] Believes in Prayer [] Reads Bible or Jain materials [] There are Spiritual issues to be addressed Coffee Blender Interventions [x] Prayer [x] Active listening [x] Non-anxious presence [] Spiritual/emotional support [] Crisis/trauma care [] Spiritual counseling [] Bereavement support [] Provided bereavement packet [] Provided Bible/devotional materials [] Provided toy/stuffed animal, coloring book to patient or family member [] Provided Communion [] Anointing/[place] [] Salvation [] Completed spiritual assessment [] Other: Impact on Illness or Injury [] Angry [] Fearful [] Anxious [] Often cries [] Exhaustion [] Unable to work [] Unable to attend baptist [] Unable to walk/stand [] Unable to read [] Unable to drive [] Unable to eat/drink [] Unable to sleep [] Unable to be with family [] Patient intubated [] Other: Summary P Time spent with patient 10 Min
[2024-07-16 12:04] LABS: Glucose Point of Care 131 mg/dL (70-110)
--- NOTE | 2024-07-16 12:07 | PM.DCS ---
Discharge Providers Date of Admission: 07/12/24 09:45 Date of Discharge: July 16, 2024 Attending Provider at Admission: Ok Solares MD Attending Provider at Discharge: Colin Briseno MD Primary Care Provider: Dmitriy Martinez MD Diagnoses at Discharge Discharge Diagnosis (1) Acute hypoxic respiratory failure: Status: Acute (2) Pneumonia: Status: Acute (3) Pulmonary edema: Status: Acute (4) Asthma-COPD overlap syndrome: Status: Acute (5) Morbid obesity: Status: Acute Reason for Visit Reason for Visit: difficult breathing,spitting up blood Brief History: Perlita Melton is a 74 year old female With a past medical history significant for asthma/COPD overlap syndrome with chronic hypoxic respiratory failure on 3 L, morbid obesity, hyperlipidemia, type 2 diabetes mellitus, and multiple other comorbidities who presents emergency department with shortness of breath and cough. Describes her cough is productive with slight blood-tinged sputum at times. Reports exertion worsens symptoms. Rest improves. Of note, she was recently admitted earlier this month for similar symptoms. At that time she required BiPAP treatment. As patient failed to respond to therapy she was transferred to [facility] for pulmonary evaluation. Patient states that she was there about 2 or 3 days and they did not do much other than wean her oxygen down. She was sent home. And told if she started to get short of breath to seek care as quickly as possible. Hospital Course Hospital Course Patient was admitted to the hospital further evaluation and management of hypoxic and hypercapnic respiratory failure. She was started on nebulization treatment, steroids along with loop diuretic drip with concerns for congestive heart failure. It is believed her symptoms are in setting of COPD exacerbation in setting of obstructive sleep apnea with diastolic heart failure at baseline. She responded well to the treatment and her diuretics were adjusted. On admission patient required heated high flow which was later transitioned over to nasal cannula oxygen supplementation of 5 L. Patient's oxygen supplementation have remained stable over last 48 hours both at rest and on exertion. She has been discharged home in stable condition with advised to continue nebulization treatment as an outpatient, steroid taper along with Bumex 2 mg every morning and 1 mg every afternoon after diuretic. Patient was counseled in detail regarding lifestyle modification with concerns for congestive heart failure in setting of obstructive sleep apnea noncompliant to BiPAP. Pulmonology has been arranged. Home O2 evaluation was done prior to discharge. Physical Exam Narrative: General: Patient is awake and alert. No acute distress, on 4l NC, chronically ill-appearing Head: Normocephalic. Atraumatic. EOM intact. Neck: No JVD. Cardiovascular: RRR. No gallops. No murmurs. Lungs: Diffuse rhonchi. Faint end expiratory wheezing. Tachypnea. Inability to talk in full sentences. Skin: No jaundice. No rashes. Abdomen: Normal bowel sounds, abdomen soft and nontender. Extremities: No cyanosis or clubbing. Musculoskeletal:No swollen or erythematous joints. Neurological: Moves all 4 extremities. No myoclonus. Urinary Catheter Management: Walker: Cath Placed During This Visit: yes Reason for Continuing Indwelling Catheter: Accurate Measurement of Urinary Output in Critically Ill Patients Urinary Catheter Date of Insertion: 07/12/24 Urinary Catheter Time of Insertion: 02:30 Discharge Data Studies Completed and Pending Completed Studies During Hospitalization Category Date Time Status CTA chest [CT angio chest PE protcl 41090] Stat Cat Scan 07/11/24 14:47 Completed Modified barium swallow [FL barium swallow modifd [id number] Exams 07/12/24 09:50 Completed ] Routine XR chest 1V portable [id number] Routine Exams 07/12/24 06:00 Completed XR chest 1V portable [id number] Stat Exams 07/11/24 13:47 Completed Pending at discharge Category Date Time Status Blood Culture Stat Lab 07/11/24 18:43 Results Histoplasma Quantitative AG Routine Lab 07/13/24 02:15 Received Radiology Impressions Chest CTA 07/11/24 14:47 IMPRESSION: 1. Mild to moderate interstitial pulmonary edema. More focal airspace disease in the periphery of the right middle lobe and right lower lobe suggesting alveolar edema versus pneumonia. Recommend clinical correlation. Recommend followup chest imaging to insure resolution of these findings. 2. Stable small pericardial effusion. 3. No evidence for pulmonary embolism. 4. Decreasing airspace disease with air bronchograms in the left lingula and left lower lobe suggesting resolving atelectasis or pneumonia in the these regions. 5. Stable small left pleural effusion. 6. Retained food in the thoracic esophagus. This could be due to retained esophageal contents from poor esophageal motility versus gastroesophageal reflux. Recommend clinical correlation. Upper GI examination may be obtained for further evaluation as clinically indicated. 7. Incidental/nonacute findings are listed in the report. Chest X-Ray 07/12/24 06:00 IMPRESSION: 1. Cardiac enlargement. 2. Small LEFT pleural effusion. Modified Barium Swallow 07/12/24 09:50 IMPRESSION: 1. No aspiration was observed. 2. The patient experienced mild penetration into the laryngeal inlet when swallowing thin liquid barium. A separate report with recommendations will follow from the speech therapy service. Microbiology 07/11/24 08:09 Sputum - Expectorated Sputum Gram Stain - Final 07/11/24 08:09 Sputum - Expectorated Sputum Sputum Culture - Final 07/13/24 02:15 Urine Kidney Bacterial Antigens - Final 07/11/24 18:43 Blood Blood Culture - Preliminary NEGATIVE TO DATE 07/11/24 18:37 Blood Blood Culture - Preliminary NEGATIVE TO DATE Laboratory Results WBC 6.63 10^3/uL (3.29-11.43) 07/16/24 05:17 RBC 4.33 10^6/uL (3.85-5.65) 07/16/24 05:17 Hgb 11.50 g/dL (11.27-16.99) 07/16/24 05:17 Hct 36.6 % (36-47) 07/16/24 05:17 MCV 84.5 fl (85-98) L 07/16/24 05:17 MCH 26.6 pg (27-33) L 07/16/24 05:17 MCHC 31.4 g/dL (30-55) 07/16/24 05:17 RDW 16.4 % (12.1-15.1) H 07/16/24 05:17 Plt Count 260 10^3/cmm (157-399) 07/16/24 05:17 MPV 11.4 fL (7.4-10.4) H 07/16/24 05:17 Neut % (Auto) 74.3 % 07/16/24 05:17 Lymph % (Auto) 15.5 % 07/16/24 05:17 Mckenzie % (Auto) 9.4 % 07/16/24 05:17 Eos % (Auto) 0.0 % 07/16/24 05:17 Baso % (Auto) 0.2 % 07/16/24 05:17 Neut # (Auto) 4.93 10^3/uL (1.8-7.7) 07/16/24 05:17 Lymph # (Auto) 1.0 10^3/uL (0.8-4.8) 07/16/24 05:17 Mckenzie # (Auto) 0.6 10^3/uL (0.2-0.9) 07/16/24 05:17 Eos # (Auto) 0.0 10^3/uL (0.0-0.8) 07/16/24 05:17 Baso # (Auto) 0.0 10^3/uL (0.0-0.1) 07/16/24 05:17 Nucleated RBC % (auto) 0 % 07/16/24 05:17 Nucleated RBCs # 0.0 /100WBC 07/16/24 05:17 Specimen Type Arterial 07/11/24 14:02 Sample Site Radial, right 07/11/24 14:02 ABG pH 7.46 (7.35-7.45) H 07/11/24 14:02 ABG pCO2 47.3 mmHg (35-45) H 07/11/24 14:02 ABG pO2 38.3 mmHg (80.0-100.0) L* 07/11/24 14:02 ABG PO2/FiO2 Ratio 182 07/11/24 14:02 ABG HCO3 33.6 mmol/L (22-26) H 07/11/24 14:02 ABG Base Excess 8.7 mmol/L (-2.0-2.0) H 07/11/24 14:02 Jordan Test Pos 07/11/24 14:02 Hematocrit 32.8 % (37-47) L 07/11/24 14:02 Hgb O2 Saturation 70.5 % (95-100) L 07/11/24 14:02 Carboxyhemoglobin 2.1 %THgb (0.4-20.1) 07/11/24 14:02 Methemoglobin 0.7 % (0.4-1.5) 07/11/24 14:02 Total Hemoglobin 10.7 g/dL (12-16) L 07/11/24 14:02 O2 Delivery Device Room air 07/11/24 14:02 FiO2 21.0 % 07/11/24 14:02 Director Of Hospitality ID Zanci 07/11/24 14:02 Sodium 137 mmol/L (136-145) 07/16/24 05:17 Potassium 4.0 mmol/L (3.5-5.1) 07/16/24 05:17 Chloride 92 mmol/L (98-107) L 07/16/24 05:17 Carbon Dioxide 34 mmol/L (22-29) H 07/16/24 05:17 Anion Gap 15.0 (5-19) 07/16/24 05:17 BUN 30 mg/dL (8-23) H 07/16/24 05:17 Creatinine 1.0 mg/dL (0.5-0.9) H 07/16/24 05:17 GFR Calculation Not Reportable 07/16/24 05:17 Glucose 129 mg/dL (65-115) H 07/16/24 05:17 POC Glucose 131 mg/dL (70-110) H 07/16/24 11:49 Calculated Osmolality 292 mOsm/kg (285-295) 07/16/24 05:17 Calcium 8.0 mg/dL (8.5-10.5) L 07/16/24 05:17 Phosphorus 3.4 mg/dL (2.5-4.5) 07/12/24 03:26 Magnesium 1.8 mg/dL (1.7-2.3) 07/15/24 03:43 Iron 39 ug/dL (37-145) 07/12/24 03:26 TIBC 238 mcg/dl 07/12/24 03:26 % Saturation 16.3 % (20-50) L 07/12/24 03:26 Unsat Iron Binding 199 ug/dL (112-347) 07/12/24 03:26 Total Bilirubin 0.5 mg/dL (0.15-1.2) 07/16/24 05:17 AST 32 U/L (0-32) 07/16/24 05:17 ALT 13 U/L (0-33) 07/16/24 05:17 Alkaline Phosphatase 94 U/L (35-105) 07/16/24 05:17 Lactate Dehydrogenase 218 U/L (135-214) H 07/12/24 03:26 C-Reactive Protein 74.1 mg/L (0.0-4.9) H 07/12/24 03:26 NT-Pro-B Natriuret Pep 998 pg/mL (0-125) H 07/11/24 14:04 Total Protein 5.8 g/dL (6.6-8.7) L 07/16/24 05:17 Albumin 3.6 g/dL (3.5-5.2) 07/16/24 05:17 Globulin 2.2 g/dL (1.3-4.6) 07/16/24 05:17 Vitamin B12 381 pg/mL (232-1245) 07/12/24 03:26 Folate 3.7 ng/mL (4.8-37.3) L 07/13/24 04:27 Procalcitonin 0.43 ng/mL (0-0.5) 07/11/24 14:04 Nasal MRSA (PCR) Not detected (Not Detecte) 07/12/24 Unknown Vancomycin Trough 19.2 ug/mL (10-15) H 07/14/24 21:40 Coronavirus (PCR) Negative (Negative) 07/11/24 15:29 Influenza A (PCR) Negative (Negative) 07/11/24 15:29 Influenza Type B (PCR) Negative (Negative) 07/11/24 15:29 RSV (PCR) Negative (Negative) 07/11/24 15:29 MRSA (PCR) Cancelled 07/11/24 22:47 Beta-(1,3)-D-Glucan <31 pg/ml 07/11/24 14:04 B-(1,3)-D-Glucan Intrp Negative (Negative) 07/11/24 14:04 Vitals Last Vital Signs Temp 97.9 F 07/16/24 03:45 Pulse 72 07/16/24 11:38 Resp 21 H 07/16/24 11:38 BP 107/62 07/16/24 11:38 Pulse Ox 90 07/16/24 11:38 O2 Del Method Nasal Cannula 07/16/24 11:38 O2 Flow Rate 5 07/16/24 11:38 FiO2 4 07/16/24 04:00 Discharge Plan Discharge Patient Disposition: Home Condition: Stable Prescriptions: New fluticasone propion-salmeterol [Advair Diskus] 100-50 mcg/dose blister with device 1 inh inhalation BID Qty: 60 0RF prednisone 10 mg tablet See Taper PO DIRECTED Qty: 42 0RF Taper: predniSONE 60-10 60 mg Daily for 2 Days and 0 Hour 50 mg Daily for 2 Days and 0 Hour 40 mg Daily for 2 Days and 0 Hour 30 mg Daily for 2 Days and 0 Hour 20 mg Daily for 2 Days and 0 Hour 10 mg Daily for 2 Days and 0 Hour Rx Instructions: see taper instructions bumetanide 1 mg Tablet 2 mg PO BID Qty: 60 0RF Rx Instructions: 4 mg every morning, 1 mg every afternoon Continued pantoprazole 40 mg tablet,delayed release (DR/EC) 40 mg PO DAILY repaglinide 2 mg tablet 2 mg PO TID potassium chloride 10 mEq tablet,ER particles/crystals 10 meq PO BID rosuvastatin 20 mg tablet 20 mg PO DAILY eszopiclone 2 mg tablet 1 mg PO DAILY (DME) COCK UP SPLINT See Rx Instructions .Route .MEDSUPPLY Qty: 1 0RF Rx Instructions: As directed montelukast [Singulair] 10 mg tablet 10 mg PO DAILY Spiriva Respimat 2.5 mcg/actuation mist 2 puff INHALATION DAILY Qty: 4 6RF tramadol 50 mg tablet 50 mg PO TID PRN (Reason: pain (scale score 7-10)) Qty: 90 2RF amitriptyline 50 mg tablet 100 mg PO DAILY MDD 1 30 Days Qty: 60 2RF Rx Instructions: Migraines tizanidine 4 mg tablet 4 mg PO BID PRN (Reason: muscle spasticity) Qty: 60 2RF azithromycin 500 mg tablet 500 mg PO .every other day Qty: 15 6RF levothyroxine 125 mcg Tablet 125 mcg PO DAILY cholecalciferol (vitamin D3) [Vitamin D3] 25 mcg (1,000 unit) Tablet 25 mcg PO DAILY aspirin [Aspir-81] 81 mg Tablet,Delayed Release (Dr/Ec) 81 mg PO DAILY hydroxyzine HCl 25 mg tablet 25 mg PO Q8H albuterol sulfate 2.5 mg /3 mL (0.083 %) solution for nebulization 2.5 mg inhalation QID PRN (Reason: Shortness Of Breath) carbidopa-levodopa 25-250 mg tablet 1 tab PO TID ketorolac 10 mg tablet 10 mg PO Q6H PRN (Reason: Pain) diazepam 5 mg tablet 5 mg PO BID PRN (Reason: unknown) duloxetine 60 mg capsule,delayed release(DR/EC) 60 mg PO DAILY Ozempic 1 mg/dose (4 mg/3 mL) pen injector 1 mg SUBCUT Q7D Discontinued metoprolol succinate 25 mg tablet extended release 24 hr 25 mg PO DAILY amlodipine 10 mg tablet 10 mg PO DAILY losartan 50 mg tablet 50 mg PO DAILY furosemide [Lasix] 20 mg tablet 20 mg PO DAILY Qty: 30 3RF Discharge Orders: Discharge Order (Routine); Ordered 07/16/24 Ordered By: Colin Briseno Other Ambulatory Orders: DME: Walker (Order) Location: None Selected Ordered By: Colin Briseno Ref[facility]: [facility] [place] [facility] [place] [Outside] Dmitriy Martinez MD [Primary Care Provider] - 2 weeks Discharge Diet: Cardiac and Diabetic Discharge Activity: Resume usual activity and Increase activity as tolerated Patient Instructions: Opioid Safety Activity Restrictions/Additional Instructions: Restrict fluid intake to less than 1500 cc, salt intake to less than 2 g daily. Advised to check his weight daily at home. Is advised that weight today would be the dry weight and if body weight increases by around 5 pounds, patient is to take an extra dose of Bumex daily till body weight comes down to weight today. If not able to come down to dry body weight in 1 week, then is to call cardiology office for further recommendations. Patient was counseled in detail to take medications regularly as prescribed. Goal blood pressure of less than 140/90 mmHg. For now hold off on taking your antihypertensive including amlodipine, losartan or metoprolol. You can restart amlodipine 5 mg daily for blood pressure starts getting higher than 140 mg. Follow-up with your primary care provider within next 2 weeks with a blood pressure diary for further adjustment of antihypertensive as needed. Should have a repeat BMP done in 1 week. Target oxygen saturation over 88%. Discharge Attestations Time Spent in Discharge Care*: greater than 30 min Specific Discharge Activities: educating patient, educating and/or supporting family/caregiver, discussing with pcp/other providers, discussing with case technician/social workers/dc planners, documenting/other paperwork and evaluating patient/reviewing data Status at Discharge: Cognitive status at discharge: cognitively intact, Behavioral status at discharge: cooperative, Functional status at discharge: uses cane/walker, Overall status at discharge: patient is progressing back to baseline Quality Metrics Clinical Quality Measures [ No reported AMI, CVA or VTE this stay] Coding Level of Care Code 35395 Total time (in minutes) for Discharge: 60 Diagnoses Acute hypoxic respiratory failure J96.01 Pneumonia J18.9 Pulmonary edema J81.1 Asthma-COPD overlap syndrome J44.89 Morbid obesity E66.01
--- NOTE | 2024-07-16 12:56 | PC.NURSE ---
villa removed at 1248. 1000 ml in bag
== END 2024-07-16 14:38 | disposition home health service (06) | DRG 193 ==
LOC: ER 17:10 → CSU 17:47
PROVIDERS: Admitting Provider Internal Medicine; Emergency Provider Emergency Medicine; PCP Family Medicine; Visit Provider Student in an Organized Health Care Education/Training Program
DX: J18.9 Pneumonia, unspecified organism (principal); J96.21 Acute and chronic respiratory failure with hypoxia; J96.22 Acute and chronic respiratory failure with hypercapnia; J44.0 Chronic obstructive pulmonary disease with (acute) lower respiratory infection; J44.1 Chronic obstructive pulmonary disease with (acute) exacerbation; I50.30 Unspecified diastolic (congestive) heart failure; E66.01 Morbid (severe) obesity due to excess calories; E78.5 Hyperlipidemia, unspecified; E11.9 Type 2 diabetes mellitus without complications; I11.0 Hypertensive heart disease with heart failure; G47.33 Obstructive sleep apnea (adult) (pediatric); E03.9 Hypothyroidism, unspecified; K21.9 Gastro-esophageal reflux disease without esophagitis; M79.7 Fibromyalgia; Z79.82 Long term (current) use of aspirin; Z87.891 Personal history of nicotine dependence; Z99.81 Dependence on supplemental oxygen; Z68.39 Body mass index [BMI] 39.0-39.9, adult; Z91.199 Patient's noncompliance with other medical treatment and regimen due to unspecified reason; Z79.85 Long-term (current) use of injectable non-insulin antidiabetic drugs
CPT/HCPCS: 0241U; 36415; 36416; 36600; 51702; 71045; 71275; 74230; 80048; 80053; 80202; 82607; 82746; 82805; 82962; 83540; 83550; 83615; 83735; 83880; 84100; 84145; 85025; 86140; 86403; 87040; 87070; 87205; 87385; 87449; 87641; 92523; 92526; 92610; 92611; 93005; 94640; 94664; 94760; 96365; 96372; 96375; 96376; 97116; 97161; 99285; G0378; J0456; J0696; J1644; J1815; J1940; J2185; J2919; J3370; J3475; J3490; J7050; J7626; Q0144

== ENCOUNTER 2024-07-22 12:07 | Outpatient (CLI) | payer MEDICARE, SELFPAY ==
[2024-07-22 13:06] LABS: Anion Gap 13.4 (5-19); Blood Urea Nitrogen 36 mg/dL (8-23); Calcium 8.5 mg/dL (8.5-10.5); Carbon Dioxide 38 mmol/L (22-29); Chloride 91 mmol/L (98-107); Glucose 84 mg/dL (65-115); Osmolality Calculated 296 mOsm/kg (285-295); Potassium 3.4 mmol/L (3.5-5.1); Sodium 139 mmol/L (136-145)
== END 2024-07-22 12:08 | disposition home or self-care (01) ==
LOC: LAB 12:08
PROVIDERS: PCP Family Medicine; Visit Provider Family Medicine
DX: E11.9 Type 2 diabetes mellitus without complications (principal)
CPT/HCPCS: 80048

== ENCOUNTER 2025-05-25 10:32 | Outpatient (CLI) | payer MEDICARE, SELFPAY ==
--- NOTE | 2025-05-25 10:38 | MM_ITS ---
WS: [id number] BILATERAL 3D TOMOSYNTHESIS DIGITAL SCREENING MAMMOGRAPHY WITH CAD CLINICAL INFORMATION: SCREENING HISTORY: Screening mammogram. No current complaints. COMPARISON: 2013 TECHNIQUE: Bilateral CC and MLO views. FINDINGS: Scattered fibroglandular densities bilaterally. No suspicious focal mass, asymmetry, calcifications, or architectural distortion. No evidence of malignancy. A few incidental punctate calcifications. Vascular calcification. MM/MM scr tomosynthesis [id number] IMPRESSION: DENSITY: There are scattered areas of fibroglandular density. BI-RADS: 2 - Benign. FOLLOW UP: 1 Year Follow-up Recommend return to annual screening mammography.
== END 2025-05-25 10:33 | disposition home or self-care (01) ==
PROVIDERS: PCP Family Medicine; Visit Provider Family Medicine
DX: Z12.31 Encounter for screening mammogram for malignant neoplasm of breast (principal); R92.323 Mammographic fibroglandular density, bilateral breasts; R92.1 Mammographic calcification found on diagnostic imaging of breast
CPT/HCPCS: 77063; 77067

== ENCOUNTER → 2025-07-04 09:47 | Outpatient (BNVA) | payer MEDICARE, SELFPAY | PROVIDERS: PCP Family Medicine; Visit Provider Anesthesiology Pain Medicine | DX: M54.12 Radiculopathy, cervical region (principal); M25.569 Pain in unspecified knee; M54.50 Low back pain, unspecified; G89.29 Other chronic pain | CPT/HCPCS: 99214 ==

== ENCOUNTER → 2025-07-06 10:14 | Outpatient (BNVA) | payer MEDICARE, SELFPAY | PROVIDERS: PCP Family Medicine; Visit Provider Anesthesiology Pain Medicine | DX: M79.18 Myalgia, other site (principal); M54.12 Radiculopathy, cervical region; M54.2 Cervicalgia; M54.50 Low back pain, unspecified; G89.29 Other chronic pain; Z79.891 Long term (current) use of opiate analgesic | CPT/HCPCS: 20553; 99214; J1010; J3490 ==